=== PATIENT | female | born 1950 | race Caucasian/White ===

== ENCOUNTER → 2017-08-06 12:46 | Outpatient (CLI) | payer MEDICARE, SELFPAY ==
--- NOTE | 2017-08-06 12:59 | XR_ITS ---
XR DEXA axial skeleton HISTORY: ITS.REASON: POST MENOPAUSAL ORDERING PHYSICIAN: Referral Provider, PATIENT AGE: 66 years COMPARISON: None FINDINGS: The BMD measured at the total right femur femoral neck is 0.658 g/cm squared with a T score of -2.8. This is considered osteoporotic according to the World Health Organization criteria. Fracture risk is high. Treatment should be started if not already prescribed. L1 L4 density in the T score of 0.1. IMPRESSION: Osteoporosis. High fracture risk. Recommend follow-up exam July 2018 to follow-up progression of treatment knee. On the scanogram images the right femoral neck and intertrochanteric region of the femur has decreased in intensity compared to the left side. While this may be technical, one cannot exclude the possibility of a lesion in the right proximal femur. Right hip films may be of further value.
== END ==
PROVIDERS: PCP Emergency Medicine; Visit Provider Physician Assistant
DX: Z13.820 Encounter for screening for osteoporosis (principal); M81.0 Age-related osteoporosis without current pathological fracture; Z78.0 Asymptomatic menopausal state
CPT/HCPCS: 77080

== ENCOUNTER 2017-09-06 09:36 | Emergency (ER) | payer MEDICARE, SELFPAY ==
[2017-09-06 10:05] VITALS: BP 94/63; PULSE 111; RESP 20; TEMP 37.1; O2SAT 95; BMI 16.2
--- NOTE | 2017-09-06 10:23 | HMH.EDUTC ---
[facility] [place] Disposition Clinical Impression: URI (upper respiratory infection) Qualifiers: URI type: unspecified URI Qualified Code(s): J06.9 - Acute upper respiratory infection, unspecified Disposition: Home, Self-Care Condition on Discharge: Good Instructions: DI for Cough -- Adult, DI for Nasal Congestion Additional Instructions: Take medication as prescribed Follow up with family doctor REturn if needed Hard candy may help to keep throat coated and cough down Follow up with family doctor if no improvement or worsening of symptoms 24-48 hours Gargle warm salt water to help with throat irritation Vaporizer/humidifier may help with cough Prescriptions: Azithromycin [Z-Santiago 250mg Tab] 250 mg PO UD DOSE PK #6 tab Benzonatate [Tessalon Perle 100mg Cap] 100 mg PO TID PRN #30 cap PRN Reason: Cough Ondansetron [Zofran 4mg ODT] 4 mg PO Q8H PRN #20 tab.rapdis PRN Reason: Nausea predniSONE [Prednisone 5mg Tab Dose-Pack] 5 mg PO UD DOSE PK #21 pack Referrals: Mychal Rondon MD [Primary Care Provider] - Time of Disposition: 10:53 Medical Decision Making - Medical Records Medical records reviewed: Yes: I reviewed the patient's medical records. - Michael Inquiry Pt receiving controlled substance: No Michael was queried for this patient: No Vital Signs: 09/06/17 10:05 Temperature 98.8 F Temperature Source Temporal Artery Scan Pulse Rate [Right Brachial] 111 H Respiratory Rate 20 Blood Pressure [Right Arm] 94/63 Blood Pressure Mean [Right Arm] 73 Blood Pressure Source [Right Arm] Automatic Cuff Blood Pressure Position [Right Arm] Sitting 02 Sat by Pulse Oximetry 95 Oxygen Delivery Method Room Air - Lab Data Lab results reviewed: Yes: I reviewed the patient's lab results. [facility] HPI - General Stated complaint: fever,cough Time Seen by Provider: 09/06/17 10:10 Mode of Arrival: Family Vehicle Source of Information: Patient Limitations: No Limitations Description of Symptoms (Recalled from Triage Doc. by RN): C/O NAUSEA AND VOMITING WITH COUGH X 2 DAYS HEENT Symptoms (Recalled from RN notes): Yes Resp Symptoms (Recalled from RN notes): Yes Skin Symptoms (Recalled from RN notes): No MS Symptoms (Recalled from RN notes): No Functional Status (Recalled from RN notes): N/A - History of Present Illness Provider Complaint: Patient state that she has been having a nagging cough with sinus drainage for several days now States that yesterday she began having some nausea and vomiting States that the cough is dry and keeping her up at night and she has been feeling achy all over and wanted checked for the flu - Related Data Home Medications Medication Instructions Recorded Confirmed Ascorbic Acid [Vitamin C 500mg 500 mg PO DAILY 09/06/17 09/06/17 tablet] Baclofen [Lioresal 10mg tablet] 10 mg PO DAILY 09/06/17 09/06/17 Cholecalciferol (Vitamin D3) 1,000 unit PO DAILY 09/06/17 09/06/17 [Vitamin D3 1,000 Unit Cap] Lisinopril/Hydrochlorothiazide 1 tab PO DAILY 09/06/17 09/06/17 [Lisinopril-Hctz 10-12.5 mg Tab] Mirabegron [Myrbetriq] 50 mg PO DAILY 09/06/17 09/06/17 Teriflunomide [Aubagio] 14 mg PO DAILY 09/06/17 09/06/17 Vit B Comp/C/FA/Iron/Vit E 1 each PO DAILY 09/06/17 09/06/17 [Vitamin B Complex Tablet] Previous Rx's Medication Instructions Recorded Azithromycin [Z-Santiago 250mg Tab] 250 mg PO UD DOSE PK #6 tab 09/06/17 Benzonatate [Tessalon Perle 100mg 100 mg PO TID PRN #30 cap 09/06/17 Cap] Ondansetron [Zofran 4mg ODT] 4 mg PO Q8H PRN #20 tab.rapdis 09/06/17 predniSONE [Prednisone 5mg Tab 5 mg PO UD DOSE PK #21 pack 09/06/17 Dose-Pack] Allergies Allergy/AdvReac Type Severity Reaction Status Date / Time Penicillins [PENICILLINS] Allergy Unknown Verified 09/06/17 10:10 tuberculin,PPD,multi-puncture Allergy Unknown Verified 09/06/17 10:10 [TUBERCULIN,PPD,MULTI-PUNCTURE] - Worker's Comp Is this a Worker's Comp case?: No H History I have reviewed the patient's past
--- NOTE | 2017-09-06 10:29 | ED_ITS ---
[facility] [place] Disposition Clinical Impression: URI (upper respiratory infection) Qualifiers: URI type: unspecified URI Qualified Code(s): J06.9 - Acute upper respiratory infection, unspecified Disposition: Home, Self-Care Condition on Discharge: Good Instructions: DI for Cough -- Adult, DI for Nasal Congestion Additional Instructions: Take medication as prescribed Follow up with family doctor REturn if needed Hard candy may help to keep throat coated and cough down Follow up with family doctor if no improvement or worsening of symptoms 24-48 hours Gargle warm salt water to help with throat irritation Vaporizer/humidifier may help with cough Prescriptions: Azithromycin [Z-Santiago 250mg Tab] 250 mg PO UD DOSE PK #6 tab Benzonatate [Tessalon Perle 100mg Cap] 100 mg PO TID PRN #30 cap PRN Reason: Cough Ondansetron [Zofran 4mg ODT] 4 mg PO Q8H PRN #20 tab.rapdis PRN Reason: Nausea predniSONE [Prednisone 5mg Tab Dose-Pack] 5 mg PO UD DOSE PK #21 pack Referrals: Mychal Rondon MD [Primary Care Provider] - Time of Disposition: 10:53 Medical Decision Making - Medical Records Medical records reviewed: Yes: I reviewed the patient's medical records. - Michael Inquiry Pt receiving controlled substance: No Michael was queried for this patient: No Vital Signs: 09/06/17 10:05 Temperature 98.8 F Temperature Source Temporal Artery Scan Pulse Rate [Right Brachial] 111 H Respiratory Rate 20 Blood Pressure [Right Arm] 94/63 Blood Pressure Mean [Right Arm] 73 Blood Pressure Source [Right Arm] Automatic Cuff Blood Pressure Position [Right Arm] Sitting 02 Sat by Pulse Oximetry 95 Oxygen Delivery Method Room Air - Lab Data Lab results reviewed: Yes: I reviewed the patient's lab results. [facility] [place] HPI - General Stated complaint: fever,cough Time Seen by Provider: 09/06/17 10:10 Mode of Arrival: Family Vehicle Source of Information: Patient Limitations: No Limitations Description of Symptoms (Recalled from Triage Doc. by RN): C/O NAUSEA AND VOMITING WITH COUGH X 2 DAYS HEENT Symptoms (Recalled from RN notes): Yes Resp Symptoms (Recalled from RN notes): Yes Skin Symptoms (Recalled from RN notes): No MS Symptoms (Recalled from RN notes): No Functional Status (Recalled from RN notes): N/A - History of Present Illness Provider Complaint: Patient state that she has been having a nagging cough with sinus drainage for several days now States that yesterday she began having some nausea and vomiting States that the cough is dry and keeping her up at night and she has been feeling achy all over and wanted checked for the flu - Related Data Home Medications Medication Instructions Recorded Confirmed Ascorbic Acid [Vitamin C 500mg 500 mg PO DAILY 09/06/17 09/06/17 tablet] Baclofen [Lioresal 10mg tablet] 10 mg PO DAILY 09/06/17 09/06/17 Cholecalciferol (Vitamin D3) 1,000 unit PO DAILY 09/06/17 09/06/17 [Vitamin D3 1,000 Unit Cap] Lisinopril/Hydrochlorothiazide 1 tab PO DAILY 09/06/17 09/06/17 [Lisinopril-Hctz 10-12.5 mg Tab] Mirabegron [Myrbetriq] 50 mg PO DAILY 09/06/17 09/06/17 Teriflunomide [Aubagio] 14 mg PO DAILY 09/06/17 09/06/17 Vit B Comp/C/FA/Iron/Vit E 1 each PO DAILY 09/06/17 09/06/17 [Vitamin B Complex Tablet] Previous Rx's Medication Instructions Recorded Azithromycin [Z-Santiago 250mg Tab] 250 mg PO UD DOSE PK #6 tab
[2017-09-06 10:59] VITALS: BP 102/70; PULSE 100; RESP 20; TEMP 37.1; O2SAT 96
[2017-10-07 15:00] LABS: UTC Influenza A Antigen Negative (Negative); UTC Influenza B Antigen Negative (Negative)
== END 2017-09-06 11:00 | disposition home or self-care (01) ==
PROVIDERS: Emergency Provider Nurse Practitioner; PCP Emergency Medicine
DX: J06.9 Acute upper respiratory infection, unspecified (principal)
CPT/HCPCS: G0463; 87804; 99201

== ENCOUNTER 2017-09-13 15:54 | Inpatient (IN) ==
--- NOTE | 2017-09-13 16:17 | Emergency Department Note ---
[facility] [place] Disposition Clinical Impression: Multiple sclerosis RLL pneumonia Qualifiers: Pneumonia type: due to unspecified organism Qualified Code(s): J18.1 - Lobar pneumonia, unspecified organism Disposition: Still a Patient Condition on Discharge: Undetermined Referrals: Mychal Rondon MD [Primary Care Provider] - Time of Disposition: 16:59 (Transfer to ER) Medical Decision Making - Michael Inquiry Pt receiving controlled substance: No Vital Signs: 09/13/17 16:06 Temperature 99.1 F Temperature Source Oral Pulse Rate [Right Radial] 121 H Respiratory Rate 26 H Blood Pressure [Right Arm] 117/95 Blood Pressure Mean [Right Arm] 102 02 Sat by Pulse Oximetry 97 Oxygen Delivery Method Room Air Orders (Tests/Meds): ORDERS Category Date Time Status Chest XR 2 view (NOT portable) [XR chest 2V] Stat Exams 09/13/17 16:17 Taken - Radiology Data #1 Image(s): Chest Image Reviewed: Yes I reviewed the patient's radiology results Preliminary Findings: Abnormal (RLL infiltrate) [facility] [place] HPI - General Stated complaint: Nausea, Cough Time Seen by Provider: 09/13/17 16:10 Mode of Arrival: Wheelchair Source of Information: Patient Limitations: No Limitations Description of Symptoms (Recalled from Triage Doc. by RN): pt c/o nausea/ vomiting, and weakness that started on thursday. pt was seen in [facility] for same thing last week and was given zofran, prednisone, and zpak. HEENT Symptoms (Recalled from RN notes): No Resp Symptoms (Recalled from RN notes): No Skin Symptoms (Recalled from RN notes): No MS Symptoms (Recalled from RN notes): Yes (weakness) Functional Status (Recalled from RN notes): na - History of Present Illness Provider Complaint: Patient was seen one week ago for cough, sinus pressure, nausea. She was treated for URI with Zpack, Prednisone, Zofran and Tessalon Perles. She states that she did feel better initially but malaise returned when meds ran out. She is now feeling poorly again. Unsure about fever. She is staying nauseated. She is short of breath. She has MS. She also has a history of abnormal CXR/CT lungs, and states she was evaluated for lung cancer versus blastomycosis versus histoplasmosis but she was eventually cleared by pulmonology and told that she had none of those things. She does not smoke. She has not eaten for the past week and is afraid she is losing more weight. She has not had vomiting or diarrhea. Onset (ago): week(s) (1) Location: chest Relieving factors: none Exacerbating factors: none Associated symptoms: cough, fever/chills, malaise, nausea/vomiting, shortness of breath - Related Data Home Medications Medication Instructions Recorded Confirmed Ascorbic Acid [Vitamin C 500mg 500 mg PO DAILY 09/06/17 09/13/17 tablet] Baclofen [Lioresal 10mg tablet] 10 mg PO DAILY 09/06/17 09/13/17 Cholecalciferol (Vitamin D3) 3 unit PO DAILY 09/06/17 09/13/17 [Vitamin D3 1,000 Unit Cap] Lisinopril/Hydrochlorothiazide 1 tab PO DAILY 09/06/17 09/13/17 [Lisinopril-Hctz 10-12.5 mg Tab] Mirabegron [Myrbetriq] 50 mg PO DAILY 09/06/17 09/13/17 Teriflunomide [Aubagio] 14 mg PO DAILY 09/06/17 09/13/17 Vit B Comp/C/FA/Iron/Vit E 1 each PO DAILY 09/06/17 09/13/17 [Vitamin B Complex Tablet] Previous Rx's Medication Instructions Recorded Benzonatate [Tessalon Perle 100mg 100 mg PO TID PRN #30 cap 09/06/17 Cap] Ondansetron [Zofran 4mg ODT] 4 mg PO Q8H PRN #20 tab.rapdis 09/06/17 Allergies Allergy/AdvReac Type Severity Reaction Status Date / Time Penicillins [PENICILLINS] Allergy Unknown Verified 09/06/17 10:10 tuberculin,PPD,multi-puncture Allergy Unknown Verified 09/06/17 10:10 [TUBERCULIN,PPD,MULTI-PUNCTURE] - Worker's Comp Is this a Worker's Comp case?: No [facility] History Medical History: Denies:: Cancer, Diabetes Mellitus Type 1, Diabetes Mellitus Type 2, MRSA Other Medical History: Reports: Other (Multiple Sclerosis) Amputation: No - Social History Smoking Status: Never smoker Alcohol Intake: never - Psychiatric History Expresses thoughts of harming self/others: None Suicide Plan Description: No Plan ROS Obtained: Yes All systems reviewed & no additional complaints - Constitutional Constitutional: Reports fatigue, Reports fever(s), Reports headache(s), Reports lethargy, Reports malaise, Reports weakness - Respiratory Respiratory: Yes cough, Yes dyspnea - Gastrointestinal Gastrointestingal: Reports: nausea Physical Exam - General General appearance: alert - Head Head exam: atraumatic - Eye Eye exam: Present: PERRL - ENT ENT exam: Present: mucous membranes moist - Neck Neck exam: Present: normal inspection - Chest Chest inspection: Present: normal inspection, symmetric chest wall rise - Respiratory Respiratory exam: Present: normal lung sounds bilaterally, accessory muscle use. Absent: respiratory distress, wheezes - Cardiovascular Cardiovascular exam: Present: regular rate, normal rhythm, tachycardia - Abdominal Exam Abdominal exam: Present: soft - Extremities Exam Extremities exam: Present: normal inspection, normal capillary refill - Neurological Exam Neurological exam: Present: alert, oriented X3 - Psychiatric Psychiatric exam: Present: normal affect, normal mood - Skin Skin exam: Present: warm, dry, intact
[2017-09-13 17:28] LABS: ABG Oxygen Saturation 98 % (90-100); ABG PCO2 29.2 mmhg (35.0-45.0); ABG PO2 88.9 mmhg (80-100); ABG TCO2 26.9 mmhg (23-27)
[2017-09-13 17:29] LABS: Allen's Test Y; Oxygen R/A %
[2017-09-13 17:30] LABS: ABG PH 7.57 mmol/L (7.35-7.45)
[2017-09-13 17:43] LABS: Basophils % 0.1 % (0.1-2.0); Eosinophils # 0.1 K/mm3 (0.0-0.4); Eosinophils % 0.8 % (0.1-12.0); Hematocrit 34.7 % (37.0-47.0); Hemoglobin 10.8 g/dL (12.2-16.2); Lymphocytes # 0.9 K/mm3 (0.7-4.5); Lymphocytes % 6.2 K/mm3 (10-50); Mean Corpuscular HGB Conc 31.1 g/dL (31.8-35.4); Mean Corpuscular Hemoglobin 28.2 pg (27.0-31.2); Mean Corpuscular Volume 90.5 fl (81-99); Mean Platelet Volume 8.1 fl (7.4-10.4); Monocytes % 6.6 % (1.7-9.3); Neutrophils # 12.6 K/mm3 (1.8-7.8); Neutrophils % 86.3 % (37.0-80.0); Platelet Count 253 K/mm3 (142-424); Red Blood Count 3.84 M/mm3 (4.20-5.40); Red Cell Distribution Width 12.2 % (11.5-17.5); White Blood Count 14.6 K/mm3 (4.8-10.8)
[2017-09-13 17:55] LABS: Albumin Level 2.8 gm/dL (3.4-5.0); Albumin/Globulin Ratio 0.7 (1.1-1.8); Anion Gap 11.8 mEq/L (5-15); Bilirubin,Total 0.5 mg/dL (0.2-1.0); Calcium 8.9 mg/dL (8.5-10.1); Globulin 4.2 gm/dl (1.3-3.2); Potassium 3.8 mmoL/L (3.5-5.1)
[2017-09-13 18:00] LABS: Eosinophils % 1 % (0-3); Lymphocytes % 8 % (10-50); Monocytes % 4 % (2-9); Neutrophils % 86 % (42-76); RBC Morphology Normal; Total Cells Counted 100
--- NOTE | 2017-09-13 18:13 | Emergency Department Note ---
ED Disposition Clinical Impression: Multiple sclerosis, Dehydration, Elevated troponin, Abnormal EKG, UTI (urinary tract infection) RLL pneumonia Qualifiers: Pneumonia type: due to unspecified organism Qualified Code(s): J18.1 - Lobar pneumonia, unspecified organism Disposition: Still a Patient Condition on Discharge: Fair - Critical Care Critical Care Time: No Attestation: On 09/13/17, the high probability of a clinically significant, sudden or life threatening deterioration of the following system(s) required my full and direct attention, intervention and personal management. The time I documented below is in addition to time spent performing reported procedures but includes the following listed in this critical care notation. Medical Decision Making - Michael Inquiry Pt receiving controlled substance: No Michael was queried for this patient: No Vital Signs: 09/13/17 16:06 09/13/17 17:00 09/13/17 18:29 Temperature 99.1 F 97.9 F 98.4 F Temperature Source Oral Oral Oral Pulse Rate 99 H Pulse Rate [Right Radial] 121 H 105 H Respiratory Rate 26 H 24 16 Blood Pressure 100/56 Blood Pressure [Right Arm] 117/95 113/55 Blood Pressure Mean [Right Arm] 102 74 Blood Pressure Source [Right Arm] Blood Pressure Position [Right Arm] 02 Sat by Pulse Oximetry 97 97 Oxygen Delivery Method Room Air Room Air 09/13/17 18:56 Temperature 98.7 F Temperature Source Oral Pulse Rate Pulse Rate [Right Radial] 83 Respiratory Rate 16 Blood Pressure Blood Pressure [Right Arm] 91/54 Blood Pressure Mean [Right Arm] 66 Blood Pressure Source [Right Arm] Automatic Cuff Blood Pressure Position [Right Arm] Supine 02 Sat by Pulse Oximetry 96 Oxygen Delivery Method Room Air - Lab Data Lab Results 09/13/17 17:20: WBC 14.6 H, RBC 3.84 L, Hgb 10.8 L, Hct 34.7 L, MCV 90.5, MCH 28.2, MCHC 31.1 L, RDW 12.2, Plt Count 253, MPV 8.1, Neut % (Auto) 86.3 H, Lymph % (Auto) 6.2 L, Star[place] % (Auto) 6.6, Eos % (Auto) 0.8, Baso % (Auto) 0.1, Neut # (Auto) 12.6 H, Lymph # (Auto) 0.9, Starke # (Auto) 1.0, Eos # (Auto) 0.1, Baso # (Auto) 0.0, Total Counted 100, Neutrophils % (Manual) 86 H, Band Neutrophils % 1.0, Lymphocytes % (Manual) 8 L, Monocytes % (Manual) 4, Eosinophils % (Manual) 1, Platelet Estimate Normal, RBC Morphology Normal 09/13/17 17:20: Sodium 138, Potassium 3.8, Chloride 100, Carbon Dioxide 30, Anion Gap 11.8, BUN 35 H, Creatinine 1.73 H, Estimated Creat Clear 22, Estimated GFR 29 L, Est GFR ( Amer) 35 L, Glucose 103, Calcium 8.9, Total Bilirubin 0.5, AST 16, ALT 15, Alkaline Phosphatase 78, Total Protein 7.0 , Albumin 2.8 L, Globulin 4.2 H, Albumin/Globulin Ratio 0.7 L 09/13/17 17:20: Lactic Acid 1.3 09/13/17 17:20: Total Creatine Kinase 49, CK-MB (CK-2) 0.8, CK-MB (CK-2) Rel Index 1.6, Troponin I 0.07 H 09/13/17 17:27: Specimen Source R/r, O2 % R/a, ABG pH 7.57 H*, ABG pCO2 29.2 L, ABG pO2 88.9, ABG HCO3 26.0, ABG Total CO2 26.9, ABG O2 Saturation 98, ABG Base Excess 4.0 H, Dash Test Y 09/13/17 18:15: Urine Color Yellow, Urine Appearance Cloudy, Urine pH 5.5, Ur Specific [place] 1.025, Urine Protein 3+, Urine Glucose (UA) Negative, Urine Ketones Trace, Urine Blood 1+, Urine Nitrate Negative, Urine Bilirubin Negative , Urine Urobilinogen 0.2, Ur Leukocyte Esterase 2+ A, Urine RBC 5-10, Urine WBC Tntc Result diagrams: 09/13/17 17:20 09/13/17 17:20 Orders (Tests/Meds): ED MEDICATIONS Generic Name Dose Route Start Last Admin Trade Name Freq PRN Reason Stop Dose Admin Acetaminophen 650 mg 09/13/17 18:34 Acetaminophen 325mg Tab PO 10/13/17 18:33 Q4HP PRN As Needed for Fever or Pain Sodium Chloride 1,000 mls @ 100 mls/hr 09/13/17 18:34 Sod Chlor 0.9% 1000ml Bag IV 10/13/17 18:33 .Q10H JOÃO Cefepime HCl 1 gm/ Sodium 50 mls @ 100 mls/hr 09/13/17 18:34 09/13/17 18:42 Chloride IV 09/27/17 18:33 100 mls/hr Q12H JOÃO Administration Protocol ORDERS Category Date Time Status Consult to Cardiology [CONS] Routine Cons 09/13/17 18:25 Active Complete Blood Count Auto Diff AMLAB Lab 09/14/17 06:00 Ordered Comprehensive Metabolic Panel AMLAB Lab 09/14/17 06:00 Ordered Troponin I Q6H Lab 09/13/17 22:00 Ordered Troponin I Q6H Lab 09/14/17 04:00 Ordered Blood Culture Stat Micro 09/13/17 17:20 Received ECG Request by /Liya Stat Y 09/13/17 17:09 Stop Req - Radiology Data #1 Image(s): Chest Image Reviewed: Yes I have reviewed radiologist's interpretation Preliminary Findings: Abnormal - ECG Data Tracing #1 Normal sinus rhythm 97/min incomplete right bundle branch block left anterior fascicular block nonspecific ST and T-segment changes not excluded ischemia. ECG initial impression date: 09/13/17 ECG initial impression time: 18:14 Resp/SOB HPI - General Chief Complaint: Upper Respiratory Infection Stated Complaint: Nausea, Cough Time Seen by Provider: 09/13/17 16:10 Mode of Arrival: Wheelchair Source of Information: Patient Limitations: No Limitations Description of Symptoms (Recalled from ER Triage Doc. by RN): pt c/o nausea/ vomiting, and weakness that started on thursday. pt was seen in [facility] for same thing last week and was given zofran, prednisone, and zpak. - History of Present Illness 66 years old white female with history of multiple sclerosis she developed an upper respiratory infection cough congestion and posterior nasal drip laying and generalized weakness last week. In by her primary care physician and she was given antibiotics and steroids and gradually improved until 2 days ago. 2 days ago she is she started experiencing recurrence of her symptoms in the form of shortness of breath and productive cough and generalized weakness. She denies dysuria hematuria or frequency. She admits for nausea but she denies vomiting or diarrhea. She is hungry but she unable to eat due to her nausea. She went back to her primary care physician and she underwent a chest x-ray and a labs she was diverted to the ED for admission. MD Complaint: shortness of breath, cough Onset (ago): day(s) (2 days) Context: recent illness Severity: moderate Consistency/Duration: constant Relieving factors: rest Exacerbating factors: exertion Known history of: recurrent pneumonia Associated symptoms: denies other symptoms Treatment prior to arrival: other (Steroids and antibiotics. ) - Related Data Home Medications Medication Instructions Recorded Confirmed Ascorbic Acid [Vitamin C 500mg 500 mg PO DAILY 09/06/17 09/13/17 tablet] Baclofen [Lioresal 10mg tablet] 10 mg PO DAILY 09/06/17 09/13/17 Cholecalciferol (Vitamin D3) 3 unit PO DAILY 09/06/17 09/13/17 [Vitamin D3 1,000 Unit Cap] Lisinopril/Hydrochlorothiazide 1 tab PO DAILY 09/06/17 09/13/17 [Lisinopril-Hctz 10-12.5 mg Tab] Mirabegron [Myrbetriq] 50 mg PO DAILY 09/06/17 09/13/17 Teriflunomide [Aubagio] 14 mg PO DAILY 09/06/17 09/13/17 Vit B Comp/C/FA/Iron/Vit E 1 each PO DAILY 09/06/17 09/13/17 [Vitamin B Complex Tablet] Previous Rx's Medication Instructions Recorded Benzonatate [Tessalon Perle 100mg 100 mg PO TID PRN #30 cap 09/06/17 Cap] Ondansetron [Zofran 4mg ODT] 4 mg PO Q8H PRN #20 tab.rapdis 09/06/17 Allergies Allergy/AdvReac Type Severity Reaction Status Date / Time Penicillins [PENICILLINS] Allergy Unknown Verified 09/13/17 17:03 tuberculin,PPD,multi-puncture Allergy Unknown Verified 09/13/17 17:03 [TUBERCULIN,PPD,MULTI-PUNCTURE] [facility] History I have reviewed the patient's past medical history: Yes Medical History: Denies:: Cancer, Diabetes Mellitus Type 1, Diabetes Mellitus Type 2, MRSA Other Medical History: Reports: Other (Multiple Sclerosis) Amputation: No - Social History Smoking Status: Never smoker Alcohol Intake: never - Psychiatric History Expresses thoughts of harming self/others: None Suicide Plan Description: No Plan ROS Obtained: Yes All systems reviewed & no additional complaints Physical Exam - General General appearance: alert, in no apparent distress - Head Head exam: atraumatic, normocephalic, normal inspection - Eye Eye exam: Present: normal appearance, PERRL, EOMI - ENT ENT exam: Present: normal exam, normal oropharynx, mucous membranes moist, TM's normal bilaterally, normal external ear exam - Neck Neck exam: Present: normal inspection, full ROM, trachea midline. Absent: meningismus, lymphadenopathy - Chest Chest inspection: Present: normal inspection, symmetric chest wall rise. Absent : tenderness - Respiratory Respiratory exam: Present: normal lung sounds bilaterally. Absent: respiratory distress - Cardiovascular Cardiovascular exam: Present: regular rate, normal rhythm. Absent: JVD - Abdominal Exam Abdominal exam: Present: soft, normal bowel sounds. Absent: distention, tenderness, guarding, rebound, rigidity - External exam: Present: normal external exam - Extremities Exam Extremities exam: Present: normal inspection, full ROM, normal capillary refill. Absent: calf tenderness - Neurological Exam Neurological exam: Present: alert, oriented X3, CN II-XII intact, normal gait, motor sensory deficit, reflexes normal - Psychiatric Psychiatric exam: Present: normal affect, normal mood - Skin Skin exam: Present: warm, dry, intact, normal color - Lymphatic Lymphatic Findings: no adenopathy
[2017-09-13 19:46] LABS: Appearance,Urine CLOUDY (Clear); Blood, Urine 1+ (Negative); Color,Urine YELLOW (Yellow); Glucose,Urine (UA) Negative (Negative); Ketones,Urine TRACE (Negative); Leukocyte Esterase,Urine 2+ (Negative); Microscopic, Urine URINE MICROSCOPIC (MICROSCOPIC); PH,Urine 5.5 (5.0-8.5); Protein,Urine 3+ (Negative); Specific Gravity, Urine 1.025 (1.005-1.030); Urobilinogen,Urine 0.2 EU/dl (0.2)
[2017-09-13 19:48] LABS: Bilirubin,Urine Negative (Negative)
[2017-09-13 19:49] LABS: WBC,Urine TNTC #/hpf (0-3)
[2017-09-14 05:01] LABS: Albumin Level 2.6 gm/dL (3.4-5.0); Albumin/Globulin Ratio 0.6 (1.1-1.8); Bilirubin,Total 0.3 mg/dL (0.2-1.0); Calcium 8.6 mg/dL (8.5-10.1); Globulin 4.1 gm/dl (1.3-3.2); Total Protein,Serum 6.7 gm/dL (6.4-8.2)
[2017-09-14 05:07] LABS: Basophils # 0.1 K/mm3 (0-0.2); Basophils % 0.4 % (0.1-2.0); Eosinophils # 0.1 K/mm3 (0.0-0.4); Eosinophils % 0.8 % (0.1-12.0); Hematocrit 35.9 % (37.0-47.0); Lymphocytes # 0.8 K/mm3 (0.7-4.5); Lymphocytes % 5.2 K/mm3 (10-50); Mean Corpuscular HGB Conc 30.7 g/dL (31.8-35.4); Mean Corpuscular Hemoglobin 29.3 pg (27.0-31.2); Mean Corpuscular Volume 95.4 fl (81-99); Mean Platelet Volume 9.3 fl (7.4-10.4); Monocytes # 0.8 K/mm3 (0.1-1.0); Monocytes % 5.6 % (1.7-9.3); Neutrophils # 12.6 K/mm3 (1.8-7.8); Platelet Count 220 K/mm3 (142-424); Red Blood Count 3.77 M/mm3 (4.20-5.40); Red Cell Distribution Width 12.6 % (11.5-17.5); White Blood Count 14.4 K/mm3 (4.8-10.8)
[2017-09-14 05:10] LABS: Anion Gap 12.5 mEq/L (5-15); Potassium 3.5 mmoL/L (3.5-5.1)
[2017-09-14 05:33] LABS: Hypochromasia 1+; Lymphocytes % 10 % (10-50); Monocytes % 1 % (2-9); Neutrophils % 79 % (42-76); Total Cells Counted 100
[2017-09-14 05:34] LABS: Toxic Granulation 1+
--- NOTE | 2017-09-14 07:27 | Pharmacy Consult Notes ---
[facility] [place] Pharmacy VTE Monitoring - Patient Demographics Admission date: 09/13/17 Report Date: 09/14/17 Time: 07:27 Allergies/Adverse Reactions: Patient Allergies Penicillins [PENICILLINS] Allergy (Unknown, Verified 09/13/17 17:03) tuberculin,PPD,multi-puncture [TUBERCULIN,PPD,MULTI-PUNCTURE] Allergy (Unknown, Verified 09/13/17 17:03) Height: 1.75 m Weight: 48.081 kg Patient Problems: Current Active Problems Multiple sclerosis (Acute) RLL pneumonia (Acute) Dehydration (Acute) Elevated troponin (Acute) Abnormal EKG (Acute) UTI (urinary tract infection) (Acute) - VTE Risk Labs: VTE Related Lab Results Hgb 11.0 g/dL (12.2-16.2) L 09/14/17 04:15 Hct 35.9 % (37.0-47.0) L 09/14/17 04:15 Plt Count 220 K/mm3 (142-424) 09/14/17 04:15 BUN 36 mg/dL (7-18) H 09/14/17 04:15 Creatinine 1.58 mg/dL (0.55-1.02) H 09/14/17 04:15 Estimated Creat Clear 26 mL/min (0-300) 09/14/17 04:15 Was VTE Risk Assessment Performed: Yes VTE Score: 2 - Prophylaxis VTE Prophylaxis Ordered?: Yes Types of VTE Prophylaxis: TEDS Knee High Location of Applied Device: Bilateral Lower Extremeties - VTE Diagnosis Confirmed Treatment or plan recommended: Continue Current Treatment
--- NOTE | 2017-09-14 11:58 | History & Physical Report ---
*Admission Date: 09/13/17 *Chief complaint: weakness *History of present illness: this wf with progressive weakness and not feeling well with dec po intake despite op treatment was seen at [facility] and ed -d white female with history of multiple sclerosis she developed an upper respiratory infection cough congestion and posterior nasal drip laying and generalized weakness last week. In by her primary care physician and she was given antibiotics and steroids and gradually improved until 2 days ago. 2 days ago she is she started experiencing recurrence of her symptoms in the form of shortness of breath and productive cough and generalized weakness. She denies dysuria hematuria or frequency. She admits for nausea but she denies vomiting or diarrhea. She is hungry but she unable to eat due to her nausea. She went back to her primary care physician and she underwent a chest x-ray and a labs she was diverted to the ED for admission. pt was found to have acute uti [facility] History I have reviewed the patient's past medical history: Yes Medical History: Denies:: Cancer, Diabetes Mellitus Type 1, Diabetes Mellitus Type 2, MRSA Other Medical History: Reports: Arthritis, Cataracts, Other (Multiple Sclerosis) Laterality Cases: Right: Breast Biopsy, Cataract Other Surgeries: Yes: Tubal Ligation Amputation: No - *Social History Educational Level: Completed High School Smoking Status: Never smoker Alcohol Intake: never Occupational Status: retired Housing: house Household Members: spouse, family, children - Psychiatric History Expresses thoughts of harming self/others: None Suicide Plan Description: No Plan *Family Hx:: Cancer, Diabetes, Stroke, Tuberculosis Review of Systems - Review of Systems Review of systems:: pertinent systems reviewed and negative unless documented below - Constitutional Reports anorexia, Reports malaise - Eyes Denies change in vision - ENT Reports dry mouth - *Cardiovascular Denies chest pain - *Respiratory Reports cough, Reports shortness of breath - *Gastrointestinal Reports nausea, Denies abdominal pain - *Genitourinary Denies urinary incontinence, Denies urinary urgency - *Musculoskeletal Reports joint pain - Integumentary/Breasts Denies rash - *Neurologic Reports headache(s), Reports weakness Meds Home Medications Medication Instructions Recorded Confirmed Type Ascorbic Acid [Vitamin C 500mg 500 mg PO DAILY 09/06/17 09/13/17 History tablet] Baclofen [Lioresal 10mg tablet] 10 mg PO DAILY 09/06/17 09/13/17 History Cholecalciferol (Vitamin D3) 1,000 unit PO DAILY 09/06/17 09/14/17 History [Vitamin D3 1,000 Unit Cap] Lisinopril/Hydrochlorothiazide 1 tab PO DAILY 09/06/17 09/13/17 History [Lisinopril-Hctz 10-12.5 mg Tab] Mirabegron [Myrbetriq] 50 mg PO DAILY 09/06/17 09/13/17 History Teriflunomide [Aubagio] 14 mg PO DAILY 09/06/17 09/13/17 History Vit B Comp/C/FA/Iron/Vit E 1 each PO DAILY 09/06/17 09/13/17 History [Vitamin B Complex Tablet] Benzonatate [Tessalon Perle 100mg 100 mg PO TIDP PRN 09/14/17 09/14/17 History Cap] Allergies Allergy/AdvReac Type Severity Reaction Status Date / Time Penicillins [PENICILLINS] Allergy Unknown Verified 09/13/17 17:03 tuberculin,PPD,multi-puncture Allergy Unknown Verified 09/13/17 17:03 [TUBERCULIN,PPD,MULTI-PUNCTURE] Exam Vital signs and Labs for Last 24 Hours: Temp Pulse Resp BP Pulse Ox 98.7 F 101 H 18 110/52 97 09/14/17 08:00 09/14/17 08:00 09/14/17 08:00 09/14/17 08:00 09/14/17 09:00 Laboratory Results - last 24 hr 09/13/17 21:37: Troponin I 0.06 09/14/17 04:15: Sodium 139, Potassium 3.5, Chloride 102, Carbon Dioxide 28, Anion Gap 12.5, BUN 36 H, Creatinine 1.58 H, Estimated Creat Clear 26, Estimated GFR 33 L, Est GFR ( Amer) 39 L, Glucose 106, Calcium 8.6, Total Bilirubin 0.3, AST 16, ALT 14, Alkaline Phosphatase 79, Troponin I 0.07 H , Total Protein 6.7, Albumin 2.6 L, Globulin 4.1 H, Albumin/Globulin Ratio 0.6 L 09/14/17 04:15: WBC 14.4 H, RBC 3.77 L, Hgb 11.0 L, Hct 35.9 L, MCV 95.4, MCH 29.3, MCHC 30.7 L, RDW 12.6, Plt Count 220, MPV 9.3, Neut % (Auto) 88.0 H, Lymph % (Auto) 5.2 L, [place] % (Auto) 5.6, Eos % (Auto) 0.8, Baso % (Auto) 0.4, Neut # (Auto) 12.6 H, Lymph # (Auto) 0.8, [place] # (Auto) 0.8, Eos # (Auto) 0.1, Baso # (Auto) 0.1, Total Counted 100, Neutrophils % (Manual) 79 H, Band Neutrophils % 10.0 H, Lymphocytes % (Manual) 10, Monocytes % (Manual) 1 L, Toxic Granulation 1+, Platelet Estimate Normal, Hypochromasia 1+ I & O for Last 24 hours: Intake & Output 09/11/17 09/12/17 09/13/17 09/14/17 11:59 11:59 11:59 11:59 Intake Total 750 / 750 Output Total 200 / 200 Balance 550 / 550 Weight 106 lb - Constitutional no acute distress, thin - *Routine HEENT Exam Head: Present: normocephalic Eye: Present: EOMI, PERRL. Absent: conjunctival icterus ENT: Present: mucous membranes dry - *Routine Neck Exam Present: supple. Absent: JVD - *Routine Respiratory Exam Present: decreased breath sounds - *Routine Cardiovascular Exam Present: RRR, murmur, S4 - *Routine Abdominal Exam Present: soft - *Routine Extremities Exam Present: full ROM - *Routine Skin Exam Present: intact - *Routine Neurological Exam Present: alert, oriented X3, CN II-XII intact - Routine Psychiatric Exam Present: normal affect H&P: Result - Labs Labs: Short CBC 09/14/17 Range/Units 04:15 WBC 14.4 H (4.8-10.8) K/mm3 Hgb 11.0 L (12.2-16.2) g/dL Hct 35.9 L (37.0-47.0) % Plt Count 220 (142-424) K/mm3 BMP 09/14/17 04:15 Sodium 139 Potassium 3.5 Chloride 102 Carbon Dioxide 28 BUN 36 H Creatinine 1.58 H Glucose 106 Calcium 8.6 Cardiac Enzymes 09/13/17 09/14/17 Range/Units 21:37 04:15 Troponin I 0.06 0.07 H (0.00-0.06) ng/ml Liver Function 09/14/17 Range/Units 04:15 Total Bilirubin 0.3 (0.2-1.0) mg/dL AST 16 (15-37) U/L ALT 14 (12-78) U/L Alkaline Phosphatase 79 (46-116) U/L Albumin 2.6 L (3.4-5.0) gm/dL Assessment and Plan (1) UTI (urinary tract infection) Current visit: Yes Status: Acute Qualifiers: Urinary tract infection type: acute cystitis Hematuria presence: without hematuria Qualified Code(s): N30.00 - Acute cystitis without hematuria Category: Medical Code(s): N39.0 - Urinary tract infection, site not specified (2) E coli bacteremia Current visit: Yes Status: Acute Category: Medical Code(s): R78.81 - Bacteremia (3) Multiple sclerosis Current visit: Yes Status: Chronic Category: Medical Code(s): G35 - Multiple sclerosis (4) Elevated troponin Current visit: Yes Status: Acute Category: Medical Code(s): R74.8 - Abnormal levels of other serum enzymes (5) Renal insufficiency Current visit: Yes Status: Acute Category: Medical Code(s): N28.9 - Disorder of kidney and ureter, unspecified (6) Low body mass index (BMI) Current visit: Yes Status: Chronic Category: Medical
--- NOTE | 2017-09-14 16:36 | Consult Report ---
History of Present Illness Consult date: 09/14/17 Requesting physician: Mychal Rondon Consult reason: shortness of breath Chief complaint: Shortness of breath and cough Additional Medical History:: 1. Dyspnea. 2. Multiple Sclerosis. 3. Urinary tract infection. 4. Essential hypertension History of present illness: 66-year-old white female admitted to the facility with increased shortness of breath and a productive cough for the past 2-3 days. Patient stated she just has not been feeling very well. Patient had currently been seen by her PCP, in which the symptoms she was experiencing was becoming worse. Patient complains of nausea with no vomiting. Patient has history of MS and hypertension. Patient denies chest pain or shortness of breath during this examination. Patient has been having fevers. Nurse reports fever overnight as being 103. Initial EKG revealed normal sinus rhythm with an incomplete right bundle branch block with [address] T segment changes with a heart rate of 92bpm. Chest x- ray revealed emphysema/COPD with chronic post inflammatory fibrotic changes. No acute findings noted. Baseline labs were unremarkable with exception of BUN 35 and creatinine 1.73. Serial enzymes were performed with troponins elevated at 0.07. Patient has no known history of coronary artery disease. [facility] History Medical History: Denies:: Cancer, Diabetes Mellitus Type 1, Diabetes Mellitus Type 2, MRSA Other Medical History: Reports: Arthritis, Cataracts, Other (Multiple Sclerosis) Laterality Cases: Right: Breast Biopsy, Cataract Other Surgeries: Yes: Tubal Ligation Amputation: No - *Social History Educational Level: Completed High School Smoking Status: Never smoker Alcohol Intake: never Occupational Status: retired Housing: house Household Members: spouse, family, children - Psychiatric History Expresses thoughts of harming self/others: None Suicide Plan Description: No Plan *Family Hx:: Cancer, Diabetes, Stroke, Tuberculosis Meds Home Medications Medication Instructions Recorded Confirmed Type Ascorbic Acid [Vitamin C 500mg 500 mg PO DAILY 09/06/17 09/13/17 History tablet] Baclofen [Lioresal 10mg tablet] 10 mg PO DAILY 09/06/17 09/13/17 History Cholecalciferol (Vitamin D3) 1,000 unit PO DAILY 09/06/17 09/14/17 History [Vitamin D3 1,000 Unit Cap] Lisinopril/Hydrochlorothiazide 1 tab PO DAILY 09/06/17 09/13/17 History [Lisinopril-Hctz 10-12.5 mg Tab] Mirabegron [Myrbetriq] 50 mg PO DAILY 09/06/17 09/13/17 History Teriflunomide [Aubagio] 14 mg PO DAILY 09/06/17 09/13/17 History Vit B Comp/C/FA/Iron/Vit E 1 each PO DAILY 09/06/17 09/13/17 History [Vitamin B Complex Tablet] Benzonatate [Tessalon Perle 100mg 100 mg PO TIDP PRN 09/14/17 09/14/17 History Cap] Allergies Allergy/AdvReac Type Severity Reaction Status Date / Time Penicillins [PENICILLINS] Allergy Unknown Verified 09/13/17 17:03 tuberculin,PPD,multi-puncture Allergy Unknown Verified 09/13/17 17:03 [TUBERCULIN,PPD,MULTI-PUNCTURE] Review of Systems - Constitutional Reports body ache(s), Reports fatigue, Reports lack of energy, Reports weakness - *Cardiovascular Reports shortness of breath, Reports shortness of breath with activity, Denies chest pain, Denies generalized swelling, Denies lightheadedness - *Respiratory Reports chest congestion, Reports cough, Reports shortness of breath, Reports shortness of breath with activity, Denies pain with cough, Denies stridor, Denies wheezing - *Gastrointestinal Denies abdominal pain, Denies constipation, Denies loose stools - *Musculoskeletal Reports body aches - *Neurologic Reports weakness, Denies headache(s) Exam Vital signs and Labs for Last 24 Hours: Temp Pulse Resp BP Pulse Ox 102.7 F H 105 H 18 116/69 96 09/14/17 16:00 09/14/17 16:00 09/14/17 16:00 09/14/17 16:00 09/14/17 16:00 Laboratory Results - last 24 hr 09/13/17 21:37: Troponin I 0.06 09/14/17 04:15: Sodium 139, Potassium 3.5, Chloride 102, Carbon Dioxide 28, Anion Gap 12.5, BUN 36 H, Creatinine 1.58 H, Estimated Creat Clear 26, Estimated GFR 33 L, Est GFR ( Amer) 39 L, Glucose 106, Calcium 8.6, Total Bilirubin 0.3, AST 16, ALT 14, Alkaline Phosphatase 79, Troponin I 0.07 H , Total Protein 6.7, Albumin 2.6 L, Globulin 4.1 H, Albumin/Globulin Ratio 0.6 L 09/14/17 04:15: WBC 14.4 H, RBC 3.77 L, Hgb 11.0 L, Hct 35.9 L, MCV 95.4, MCH 29.3, MCHC 30.7 L, RDW 12.6, Plt Count 220, MPV 9.3, Neut % (Auto) 88.0 H, Lymph % (Auto) 5.2 L, [place] % (Auto) 5.6, Eos % (Auto) 0.8, Baso % (Auto) 0.4, Neut # (Auto) 12.6 H, Lymph # (Auto) 0.8, [place] # (Auto) 0.8, Eos # (Auto) 0.1, Baso # (Auto) 0.1, Total Counted 100, Neutrophils % (Manual) 79 H, Band Neutrophils % 10.0 H, Lymphocytes % (Manual) 10, Monocytes % (Manual) 1 L, Toxic Granulation 1+, Platelet Estimate Normal, Hypochromasia 1+ I & O for Last 24 hours: Intake & Output 09/11/17 09/12/17 09/13/17 09/14/17 23:59 23:59 23:59 23:59 Intake Total 750 / 750 Output Total 550 / 550 Balance 200 / 200 Weight 105 lb 15.972 oz - Constitutional no acute distress, average body habitus, cooperative - *Routine Neck Exam Present: supple, full ROM, normal carotid upstroke, trachea midline. Absent: JVD, carotid bruit - *Routine Respiratory Exam Present: CTA bilaterally. Absent: respiratory distress, wheezes, crackles - *Routine Cardiovascular Exam Present: RRR, Normal S1, Normal S2. Absent: murmur, JVD - *Routine Abdominal Exam Present: soft. Absent: distended, mass - *Routine Extremities Exam Present: full ROM, pulses intact, normal capillary refill. Absent: clubbing, edema - *Routine Neurological Exam Present: alert, oriented X3, CN II-XII intact, moving all extremities Assessment and Plan (1) UTI (urinary tract infection) Current visit: Yes Status: Acute Qualifiers: Urinary tract infection type: acute cystitis Hematuria presence: without hematuria Qualified Code(s): N30.00 - Acute cystitis without hematuria Category: Medical Code(s): N39.0 - Urinary tract infection, site not specified (2) E coli bacteremia Current visit: Yes Status: Acute Category: Medical Code(s): R78.81 - Bacteremia (3) Multiple sclerosis Current visit: Yes Status: Chronic Category: Medical Code(s): G35 - Multiple sclerosis (4) Elevated troponin Current visit: Yes Status: Acute Category: Medical Code(s): R74.8 - Abnormal levels of other serum enzymes (5) Renal insufficiency Current visit: Yes Status: Acute Category: Medical Code(s): N28.9 - Disorder of kidney and ureter, unspecified (6) Low body mass index (BMI) Current visit: Yes Status: Chronic Category: Medical (7) Abnormal EKG Current visit: Yes Status: Acute Category: Medical Code(s): R94.31 - Abnormal electrocardiogram [ECG] [EKG] (8) Dehydration Current visit: Yes Status: Acute Category: Medical Code(s): E86.0 - Dehydration (9) RLL pneumonia Current visit: Yes Status: Acute Qualifiers: Pneumonia type: due to unspecified organism Qualified Code(s): J18.1 - Lobar pneumonia, unspecified organism Category: Medical Code(s): J18.1 - Lobar pneumonia, unspecified organism - Assessment and plan all Dx Assessment and Plan for all problems:: Plan: 1. Continue current medical regimen per PCP. 2. Obtain echocardiogram for LV function and valvular status. 3. Schedule left heart catheterization for LV function due to elevated troponins. Will defer due to blood cultures being positive for E. coli. 4. Add Plavix 300 mg given once today. 5. Add Plavix 75mg 1 tablet daily starting in a.m..
--- NOTE | 2017-09-14 23:03 | Cardiology Report ---
PROCEDURE: 2-D M-mode and color Doppler study INDICATIONS FOR THE TEST: Chest pain X COPD Heart Murmur Tobacco Smoking Palpitations Fatigue Syncope EdemaX HypertensionXDiabetes Mellitus Rheumatic Fever SOB YAN Obesity Hyperlipidemia Family History HD Additional History ABN EKG,ELEVATED TROPONINS PATIENT INFORMATION HEIGHT: 67 WEIGHT:106 GENDER: Female B/P:110/52 2-D/M-MODE INTERPRETATION: 2-D MEASUREMENTS OBSERVED VALUES IN CMS Right Ventricular Dimension (RVDd) 2.3 Interventricular Septum (Thickness)(IVsd) 1.1 Left Ventricular Internal Dimensions(LVIDd) 4.0 Left Ventricular Posterior Wall (Thickness)(LVPWd) 1.0 Aortic Root 3.4 Aortic Cusp Separation 1.9 Left Atrial Dimensions (LAD) 2.4 2D 1. Left atrium is normal size, left ventricle is normal size, left ventricle wall thickness is upper limit of the normal, visually estimated ejection fraction 55% with no obvious regional wall motion abnormality. Endocardial surfaces are poorly visualized. 2. The right atrium and right ventricle are mildly enlarged with normal contractility. 3. The aortic valve is minimally thickened and fibrosed. 4. The mitral and tricuspid valve are grossly normal. 5. The pulmonic valve is poorly visualized 6. No significant pericardial effusion noted. DOPPLER INTERROGATION: Doppler interrogation of the aortic, mitral and tricuspid valvular presence of mild mitral and tricuspid regurgitation, calculated right ventricular systolic pressure is 62 mmHg consistent with moderate pulmonary hypertension, grade 1 diastolic dysfunction seen without tissue Doppler evidence of raised left atrial pressure. CONCLUSION: 1. Normal left ventricular size, preserved left ventricular systolic function, visually estimated ejection fraction 55% with no obvious regional wall motion abnormality, grade 1 diastolic dysfunction seen without tissue Doppler evidence of raised left atrial pressure. 2. Mildly enlarged right atrium and right ventricle, contractility of the right ventricle is normal. 3. Mild mitral and tricuspid regurgitation, calculated right ventricular systolic pressure is 62 mmHg consistent with moderate pulmonary hypertension. 4. No significant pericardial effusion noted.
[2017-09-15 07:11] LABS: Anion Gap 10.5 mEq/L (5-15); Potassium 3.5 mmoL/L (3.5-5.1)
--- NOTE | 2017-09-15 13:17 | Progress Note ---
Internal Medicine - PN: Subj *Date: 09/15/17 *Time: 13:15 Interval history: pt doing better but still with fever and culture and sent reviewed Exam Vital signs and Labs for Last 24 Hours: Temp Pulse Resp BP Pulse Ox 98.5 F 93 H 18 147/76 95 09/15/17 11:19 09/15/17 11:19 09/15/17 11:19 09/15/17 11:19 09/15/17 11:19 Laboratory Results - last 24 hr 09/15/17 06:25: Sodium 140, Potassium 3.5, Chloride 107, Carbon Dioxide 26, Anion Gap 10.5, BUN 26 H D, Creatinine 1.16 H D, Estimated Creat Clear 35, Estimated GFR 46 L, Est GFR ( Amer) 56 L D, Glucose 89 I & O for Last 24 hours: Intake & Output 09/13/17 09/14/17 09/15/17 09/16/17 11:59 11:59 11:59 11:59 Intake Total 750 / 750 2398 / 2398 360 / 360 Output Total 200 / 200 1250 / 1250 Balance 550 / 550 1148 / 1148 360 / 360 Weight 106 lb 105 lb 15.972 oz Microbiology Reports for the Last 24 Hours: Microbiology 09/13/17 23:00 Urine,Catheterized Urine Culture - Preliminary NO GROWTH AFTER 24 HOURS - Constitutional no acute distress - *Routine HEENT Exam Head: Present: normocephalic Eye: Present: EOMI, PERRL ENT: Present: mucous membranes dry - *Routine Neck Exam Present: full ROM - *Routine Respiratory Exam Present: CTA bilaterally - *Routine Cardiovascular Exam Present: RRR - *Routine Abdominal Exam Present: soft - *Routine Extremities Exam Absent: edema - *Routine Skin Exam Present: intact - *Routine Neurological Exam Present: alert, CN II-XII intact - Routine Psychiatric Exam Present: normal affect Assessment and Plan (1) UTI (urinary tract infection) Current visit: Yes Status: Acute Qualifiers: Urinary tract infection type: acute cystitis Hematuria presence: without hematuria Qualified Code(s): N30.00 - Acute cystitis without hematuria Category: Medical Code(s): N39.0 - Urinary tract infection, site not specified (2) E coli bacteremia Current visit: Yes Status: Acute Category: Medical Code(s): R78.81 - Bacteremia (3) Multiple sclerosis Current visit: Yes Status: Chronic Category: Medical Code(s): G35 - Multiple sclerosis (4) Elevated troponin Current visit: Yes Status: Acute Category: Medical Code(s): R74.8 - Abnormal levels of other serum enzymes (5) Renal insufficiency Current visit: Yes Status: Acute Category: Medical Code(s): N28.9 - Disorder of kidney and ureter, unspecified (6) Low body mass index (BMI) Current visit: Yes Status: Chronic Category: Medical (7) Abnormal EKG Current visit: Yes Status: Acute Category: Medical Code(s): R94.31 - Abnormal electrocardiogram [ECG] [EKG] (8) Dehydration Current visit: Yes Status: Acute Category: Medical Code(s): E86.0 - Dehydration (9) RLL pneumonia Current visit: Yes Status: Acute Qualifiers: Pneumonia type: due to unspecified organism Qualified Code(s): J18.1 - Lobar pneumonia, unspecified organism Category: Medical Code(s): J18.1 - Lobar pneumonia, unspecified organism
--- NOTE | 2017-09-16 09:17 | Progress Note ---
Internal Medicine - PN: Subj *Date: 09/16/17 *Time: 09:16 Interval history: doing better and no fever - Exam Vital signs and Labs for Last 24 Hours: Temp Pulse Resp BP Pulse Ox 98.4 F 98 H 18 145/81 93 L 09/16/17 07:38 09/16/17 07:38 09/16/17 07:38 09/16/17 07:38 09/16/17 07:38 I & O for Last 24 hours: Intake & Output 09/13/17 09/14/17 09/15/17 09/16/17 11:59 11:59 11:59 11:59 Intake Total 750 / 750 2398 / 2398 1813 / 1813 Output Total 200 / 200 1250 / 1250 400 / 400 Balance 550 / 550 1148 / 1148 1413 / 1413 Weight 106 lb 105 lb 15.972 oz Microbiology Reports for the Last 24 Hours: Microbiology 09/13/17 23:00 Urine,Catheterized Urine Culture - Final NO GROWTH AFTER 48 HOURS - Constitutional no acute distress - *Routine HEENT Exam Head: Present: normocephalic Eye: Present: EOMI, PERRL ENT: Present: mucous membranes dry - *Routine Neck Exam Present: full ROM - *Routine Respiratory Exam Present: CTA bilaterally - *Routine Cardiovascular Exam Present: RRR - *Routine Extremities Exam Present: full ROM - *Routine Skin Exam Present: intact - *Routine Neurological Exam Present: oriented X3, CN II-XII intact - Routine Psychiatric Exam Present: normal affect Assessment and Plan (1) UTI (urinary tract infection) Current visit: Yes Status: Acute Qualifiers: Urinary tract infection type: acute cystitis Hematuria presence: without hematuria Qualified Code(s): N30.00 - Acute cystitis without hematuria Category: Medical Code(s): N39.0 - Urinary tract infection, site not specified (2) E coli bacteremia Current visit: Yes Status: Acute Category: Medical Code(s): R78.81 - Bacteremia (3) Multiple sclerosis Current visit: Yes Status: Chronic Category: Medical Code(s): G35 - Multiple sclerosis (4) Elevated troponin Current visit: Yes Status: Acute Category: Medical Code(s): R74.8 - Abnormal levels of other serum enzymes (5) Renal insufficiency Current visit: Yes Status: Acute Category: Medical Code(s): N28.9 - Disorder of kidney and ureter, unspecified (6) Low body mass index (BMI) Current visit: Yes Status: Chronic Category: Medical (7) Abnormal EKG Current visit: Yes Status: Acute Category: Medical Code(s): R94.31 - Abnormal electrocardiogram [ECG] [EKG] (8) Dehydration Current visit: Yes Status: Acute Category: Medical Code(s): E86.0 - Dehydration (9) RLL pneumonia Current visit: Yes Status: Acute Qualifiers: Pneumonia type: due to unspecified organism Qualified Code(s): J18.1 - Lobar pneumonia, unspecified organism Category: Medical Code(s): J18.1 - Lobar pneumonia, unspecified organism
[2017-09-16 10:07] LABS: Basophils % 0.2 % (0.1-2.0); Eosinophils # 0.2 K/mm3 (0.0-0.4); Eosinophils % 2.5 % (0.1-12.0); Hemoglobin 9.3 g/dL (12.2-16.2); Lymphocytes # 0.7 K/mm3 (0.7-4.5); Lymphocytes % 7.7 K/mm3 (10-50); Mean Corpuscular HGB Conc 31.1 g/dL (31.8-35.4); Mean Corpuscular Hemoglobin 28.6 pg (27.0-31.2); Mean Corpuscular Volume 91.8 fl (81-99); Mean Platelet Volume 7.5 fl (7.4-10.4); Monocytes # 0.6 K/mm3 (0.1-1.0); Neutrophils # 6.9 K/mm3 (1.8-7.8); Neutrophils % 82.6 % (37.0-80.0); Platelet Count 180 K/mm3 (142-424); Red Blood Count 3.27 M/mm3 (4.20-5.40); Red Cell Distribution Width 12.1 % (11.5-17.5); White Blood Count 8.3 K/mm3 (4.8-10.8)
[2017-09-16 10:17] LABS: Anion Gap 10.9 mEq/L (5-15); Potassium 3.9 mmoL/L (3.5-5.1)
--- NOTE | 2017-09-17 09:56 | Progress Note ---
Internal Medicine - PN: Subj *Date: 09/17/17 *Time: 09:54 Interval history: pt with doing better and will go to swing bed today and have pt eval Exam Vital signs and Labs for Last 24 Hours: Temp Pulse Resp BP Pulse Ox 97.8 F 93 H 18 127/52 97 09/17/17 08:00 09/17/17 08:00 09/17/17 08:00 09/17/17 08:00 09/17/17 08:00 Laboratory Results - last 24 hr 09/16/17 09:45: WBC 8.3 D, RBC 3.27 L, Hgb 9.3 L, Hct 30.0 L, MCV 91.8, MCH 28.6, MCHC 31.1 L, RDW 12.1, Plt Count 180, MPV 7.5, Neut % (Auto) 82.6 H, Lymph % (Auto) 7.7 L, [place] % (Auto) 7.0, Eos % (Auto) 2.5, Baso % (Auto) 0.2, Neut # (Auto) 6.9, Lymph # (Auto) 0.7, [place] # (Auto) 0.6, Eos # (Auto) 0.2, Baso # (Auto) 0.0 09/16/17 09:45: Sodium 138, Potassium 3.9, Chloride 104, Carbon Dioxide 27, Anion Gap 10.9, BUN 17 D, Creatinine 1.05 H, Estimated Creat Clear 39, Estimated GFR 52 L, Est GFR ( Amer) 63, Glucose 82 I & O for Last 24 hours: Intake & Output 09/14/17 09/15/17 09/16/17 09/17/17 11:59 11:59 11:59 11:59 Intake Total 750 / 750 2398 / 2398 1813 / 1813 4719 / 4719 Output Total 200 / 200 1250 / 1250 400 / 400 Balance 550 / 550 1148 / 1148 1413 / 1413 4719 / 4719 Weight 106 lb 105 lb 15.972 oz - Constitutional no acute distress - *Routine HEENT Exam Head: Present: normocephalic Eye: Present: EOMI, PERRL ENT: Present: mucous membranes dry - *Routine Neck Exam Present: supple - *Routine Respiratory Exam Absent: respiratory distress - *Routine Cardiovascular Exam Present: RRR - *Routine Abdominal Exam Present: soft - *Routine Extremities Exam Present: full ROM - *Routine Skin Exam Present: intact - *Routine Neurological Exam Present: alert, oriented X3, CN II-XII intact - Routine Psychiatric Exam Present: normal affect Assessment and Plan (1) UTI (urinary tract infection) Current visit: Yes Status: Acute Qualifiers: Urinary tract infection type: acute cystitis Hematuria presence: without hematuria Qualified Code(s): N30.00 - Acute cystitis without hematuria Category: Medical Code(s): N39.0 - Urinary tract infection, site not specified (2) E coli bacteremia Current visit: Yes Status: Acute Category: Medical Code(s): R78.81 - Bacteremia (3) Multiple sclerosis Current visit: Yes Status: Chronic Category: Medical Code(s): G35 - Multiple sclerosis (4) Elevated troponin Current visit: Yes Status: Acute Category: Medical Code(s): R74.8 - Abnormal levels of other serum enzymes (5) Renal insufficiency Current visit: Yes Status: Acute Category: Medical Code(s): N28.9 - Disorder of kidney and ureter, unspecified (6) Low body mass index (BMI) Current visit: Yes Status: Chronic Category: Medical (7) Abnormal EKG Current visit: Yes Status: Acute Category: Medical Code(s): R94.31 - Abnormal electrocardiogram [ECG] [EKG] (8) Dehydration Current visit: Yes Status: Acute Category: Medical Code(s): E86.0 - Dehydration (9) RLL pneumonia Current visit: Yes Status: Acute Qualifiers: Pneumonia type: due to unspecified organism Qualified Code(s): J18.1 - Lobar pneumonia, unspecified organism Category: Medical Code(s): J18.1 - Lobar pneumonia, unspecified organism
--- NOTE | 2017-09-17 10:00 | Discharge Summary ---
General - General Admission date: 09/13/17 Discharge date: 09/17/17 HPI HPI: this wf with progressive weakness and not feeling well with dec po intake despite op treatment was seen at [facility] and ed -d white female with history of multiple sclerosis she developed an upper respiratory infection cough congestion and posterior nasal drip laying and generalized weakness last week. In by her primary care physician and she was given antibiotics and steroids and gradually improved until 2 days ago. 2 days ago she is she started experiencing recurrence of her symptoms in the form of shortness of breath and productive cough and generalized weakness. She denies dysuria hematuria or frequency. She admits for nausea but she denies vomiting or diarrhea. She is hungry but she unable to eat due to her nausea. She went back to her primary care physician and she underwent a chest x-ray and a labs she was diverted to the ED for admission. pt was found to have acute uti Hospital Course Hospital Course: pt did well with iv abx as she has pos uti and pos blood culture and will require course of 10 days of abx with pic line inserted - pt has multiple sclerosis and has weakness and will see therapy Objective Vital signs: Temp Pulse Resp BP Pulse Ox 97.8 F 93 H 18 127/52 97 09/17/17 08:00 09/17/17 08:00 09/17/17 08:00 09/17/17 08:00 09/17/17 08:00 no acute distress - *Routine HEENT Exam Head: Present: normocephalic Eye: Present: EOMI, PERRL ENT: Present: mucous membranes dry - *Routine Neck Exam Absent: JVD - *Routine Respiratory Exam Absent: respiratory distress - *Routine Cardiovascular Exam Present: RRR - *Routine Abdominal Exam Present: soft - *Routine Extremities Exam Absent: full ROM - *Routine Skin Exam Present: intact - *Routine Neurological Exam Present: alert, oriented X3, CN II-XII intact - Routine Psychiatric Exam Present: normal affect Results Labs on day of discharge: Labs from last 24 hours 09/16/17 09/16/17 09:45 09:45 WBC 8.3 D RBC 3.27 L Hgb 9.3 L Hct 30.0 L MCV 91.8 MCH 28.6 MCHC 31.1 L RDW 12.1 Plt Count 180 MPV 7.5 Neut % (Auto) 82.6 H Lymph % (Auto) 7.7 L [place] % (Auto) 7.0 Eos % (Auto) 2.5 Baso % (Auto) 0.2 Neut # (Auto) 6.9 Lymph # (Auto) 0.7 [place] # (Auto) 0.6 Eos # (Auto) 0.2 Baso # (Auto) 0.0 Sodium 138 Potassium 3.9 Chloride 104 Carbon Dioxide 27 Anion Gap 10.9 BUN 17 D Creatinine 1.05 H Estimated Creat Clear 39 Estimated GFR 52 L Est GFR ( Amer) 63 Glucose 82 DS: Diagnosis - Discharge Diagnosis (1) UTI (urinary tract infection) Status: Acute (2) E coli bacteremia Status: Acute (3) Multiple sclerosis Status: Chronic (4) Elevated troponin Status: Acute (5) Renal insufficiency Status: Acute (6) Low body mass index (BMI) Status: Chronic (7) Abnormal EKG Status: Acute (8) Dehydration Status: Acute (9) RLL pneumonia Status: Acute Discharge Plan - Patient Discharge Instructions ACTIVITY: Continue current activity DIET: continue same diet Patient Instructions: Urinary Tract Infection - Follow up Plan Disposition: [facility] Swing Bed Home Medications: Home Medications Medication Instructions Recorded Confirmed Type Ascorbic Acid [Vitamin C 500mg 500 mg PO DAILY 09/06/17 09/13/17 History tablet] Baclofen [Lioresal 10mg tablet] 10 mg PO DAILY 09/06/17 09/13/17 History Cholecalciferol (Vitamin D3) 1,000 unit PO DAILY 09/06/17 09/14/17 History [Vitamin D3 1,000 Unit Cap] Lisinopril/Hydrochlorothiazide 1 tab PO DAILY 09/06/17 09/13/17 History [Lisinopril-Hctz 10-12.5 mg Tab] Mirabegron [Myrbetriq] 50 mg PO DAILY 09/06/17 09/13/17 History Teriflunomide [Aubagio] 14 mg PO DAILY 09/06/17 09/13/17 History Vit B Comp/C/FA/Iron/Vit E 1 each PO DAILY 09/06/17 09/13/17 History [Vitamin B Complex Tablet] Benzonatate [Tessalon Perle 100mg 100 mg PO TIDP PRN 09/14/17 09/14/17 History Cap] Prescriptions/Medication Reconciliation: New Clopidogrel Bisulfate [Plavix 75mg Tab] 75 mg PO DAILY tablet Continue Baclofen [Lioresal 10mg tablet] 10 mg PO DAILY Teriflunomide [Aubagio] 14 mg PO DAILY Mirabegron [Myrbetriq] 50 mg PO DAILY Lisinopril/Hydrochlorothiazide [Lisinopril-Hctz 10-12.5 mg Tab] 1 tab PO DAILY Vit B Comp/C/FA/Iron/Vit E [Vitamin B Complex Tablet] 1 each PO DAILY Ondansetron [Zofran 4mg ODT] 4 mg PO Q8H PRN #20 tab.rapdis PRN Reason: Nausea Cholecalciferol (Vitamin D3) [Vitamin D3 1,000 Unit Cap] 1,000 unit PO DAILY Ascorbic Acid [Vitamin C 500mg tablet] 500 mg PO DAILY Benzonatate [Tessalon Perle 100mg Cap] 100 mg PO TIDP PRN PRN Reason: Cough
--- NOTE | 2017-09-17 10:13 | Swing Bed Reports ---
Discharge/Transfer - Discharge Disposition: [facility] Bed Condition: Good - Plan of Care Resident has been informed of condition and prognosis?: Yes Mobility Status: ambulatory with assistance Goal of treatment:: inc adl and iv abx Rehab Potential: Good I concur with the most recent H & P: Yes Date of most recent H & P: 09/13/17 Certification: I have reviewed and agree with this resident's plan of care. I certify that post -hospital senior care facility services are required to be given on an inpatient basis because of the need for senior care care on a continuing basis for the condition(s) for which he/she is receiving inpatient hospital services prior to admission to swing bed. I also certify that the resident meets existing SNF level of care definition.
== END 2017-09-17 10:26 | disposition swing bed (61) ==
LOC: UTC 15:54 → 2ND 15:54 → OBSVTOIN 20:02 → 2ND 20:03
PROVIDERS: ADMIT Emergency Medicine; ATTEND Emergency Medicine

== ENCOUNTER 2017-09-17 10:26 | Inpatient (IN) ==
--- NOTE | 2017-09-17 13:29 | Pharmacy Consult Notes ---
[facility] Pharmacy VTE Monitoring - Patient Demographics Admission date: 09/17/17 Report Date: 09/17/17 Time: 13:29 Allergies/Adverse Reactions: Patient Allergies Penicillins [PENICILLINS] Allergy (Unknown, Verified 09/17/17 11:57) tuberculin,PPD,multi-puncture [TUBERCULIN,PPD,MULTI-PUNCTURE] Allergy (Unknown, Verified 09/17/17 11:57) Height: 1.75 m Weight: 52.662 kg - VTE Risk Was VTE Risk Assessment Performed: Yes VTE Score: 3 VTE Risk Level: Low Risk - Prophylaxis VTE Prophylaxis Ordered?: Yes Types of VTE Prophylaxis: TEDS Knee High Location of Applied Device: Bilateral Lower Extremeties - VTE Diagnosis Confirmed Treatment or plan recommended: Continue Current Treatment
--- NOTE | 2017-09-18 17:08 | Progress Note ---
Internal Medicine - PN: Subj *Date: 09/18/17 *Time: 17:06 Interval history: saw on swing bed today - doing better Exam Vital signs and Labs for Last 24 Hours: Temp Pulse Resp BP Pulse Ox 98.3 F 89 18 125/69 98 09/18/17 08:00 09/18/17 08:00 09/18/17 08:00 09/18/17 08:00 09/18/17 08:00 I & O for Last 24 hours: Intake & Output 09/16/17 09/17/17 09/18/17 09/19/17 11:59 11:59 11:59 11:59 Intake Total 250 / 250 Balance 250 / 250 Weight 116 lb 1.6 oz 122 lb 6 oz 122 lb 5.987 oz - Constitutional no acute distress - *Routine HEENT Exam Head: Present: normocephalic Eye: Present: EOMI, PERRL ENT: Present: mucous membranes dry - *Routine Neck Exam Absent: JVD - *Routine Respiratory Exam Absent: respiratory distress - *Routine Cardiovascular Exam Present: RRR - *Routine Skin Exam Present: intact - *Routine Neurological Exam Present: oriented X3, CN II-XII intact - Routine Psychiatric Exam Present: normal affect
[2017-09-21 07:29] LABS: Anion Gap 10.4 mEq/L (5-15); Potassium 4.4 mmoL/L (3.5-5.1)
--- NOTE | 2017-09-21 13:17 | Progress Note ---
Internal Medicine - PN: Subj *Date: 09/21/17 *Time: 13:15 Interval history: doing well and feels better Exam Vital signs and Labs for Last 24 Hours: Temp Pulse Resp BP Pulse Ox 97.2 F L 84 18 111/60 100 09/21/17 08:00 09/21/17 08:00 09/21/17 08:00 09/21/17 08:00 09/21/17 08:00 Laboratory Results - last 24 hr 09/21/17 06:48: Sodium 141, Potassium 4.4, Chloride 105, Carbon Dioxide 30, Anion Gap 10.4, BUN 17, Creatinine 1.03 H, Estimated Creat Clear 46, Estimated GFR 53 L, Est GFR ( Amer) 64, Glucose 81 I & O for Last 24 hours: Intake & Output 09/19/17 09/20/17 09/21/17 09/22/17 11:59 11:59 11:59 11:59 Intake Total 1040 / 1040 480 / 480 1720 / 1720 240 / 240 Output Total 700 / 700 Balance 1040 / 1040 480 / 480 1020 / 1020 240 / 240 Weight 122 lb 5.987 oz - Constitutional no acute distress - *Routine HEENT Exam Head: Present: normocephalic Eye: Present: EOMI, PERRL ENT: Present: mucous membranes dry - *Routine Neck Exam Present: supple - *Routine Respiratory Exam Absent: decreased breath sounds - *Routine Cardiovascular Exam Present: murmur - *Routine Abdominal Exam Present: soft - *Routine Extremities Exam Absent: tenderness - *Routine Skin Exam Present: intact - *Routine Neurological Exam Present: CN II-XII intact - Routine Psychiatric Exam Present: normal affect
[2017-09-22 07:26] LABS: Basophils % 0.6 % (0.1-2.0); Eosinophils # 0.3 K/mm3 (0.0-0.4); Eosinophils % 5.7 % (0.1-12.0); Hematocrit 30.7 % (37.0-47.0); Hemoglobin 9.4 g/dL (12.2-16.2); Lymphocytes # 0.9 K/mm3 (0.7-4.5); Lymphocytes % 14.3 K/mm3 (10-50); Mean Corpuscular HGB Conc 30.7 g/dL (31.8-35.4); Mean Corpuscular Hemoglobin 27.9 pg (27.0-31.2); Mean Corpuscular Volume 90.7 fl (81-99); Mean Platelet Volume 7.5 fl (7.4-10.4); Monocytes # 0.4 K/mm3 (0.1-1.0); Monocytes % 6.2 % (1.7-9.3); Neutrophils # 4.4 K/mm3 (1.8-7.8); Neutrophils % 73.2 % (37.0-80.0); Platelet Count 266 K/mm3 (142-424); Red Blood Count 3.38 M/mm3 (4.20-5.40); Red Cell Distribution Width 12.2 % (11.5-17.5)
[2017-09-22 07:39] LABS: Albumin Level 2.7 gm/dL (3.4-5.0); Albumin/Globulin Ratio 0.6 (1.1-1.8); Anion Gap 11.7 mEq/L (5-15); Bilirubin,Total 0.2 mg/dL (0.2-1.0); Calcium 9.4 mg/dL (8.5-10.1); Globulin 4.2 gm/dl (1.3-3.2); Potassium 4.7 mmoL/L (3.5-5.1); Total Protein,Serum 6.9 gm/dL (6.4-8.2)
[2017-09-22 07:54] VITALS: BP 126/57
--- NOTE | 2017-09-22 09:33 | Discharge Summary ---
General - General Admission date: 09/17/17 Discharge date: 09/22/17 HPI HPI: this wf with progressive weakness and not feeling well with dec po intake despite op treatment was seen at [facility] and ed -d white female with history of multiple sclerosis she developed an upper respiratory infection cough congestion and posterior nasal drip laying and generalized weakness last week. In by her primary care physician and she was given antibiotics and steroids and gradually improved until 2 days ago. 2 days ago she is she started experiencing recurrence of her symptoms in the form of shortness of breath and productive cough and generalized weakness. She denies dysuria hematuria or frequency. She admits for nausea but she denies vomiting or diarrhea. She is hungry but she unable to eat due to her nausea. She went back to her primary care physician and she underwent a chest x-ray and a labs she was diverted to the ED for admission. Hospital Course Hospital Course: contiuned Iv antibotics. Completed Iv antibotics, will dc home today after last dose of antibotics. Objective Vital signs: Temp Pulse Resp BP Pulse Ox 98.8 F 90 18 126/57 98 09/22/17 07:52 09/22/17 07:52 09/22/17 07:52 09/22/17 07:52 09/22/17 07:52 no acute distress - *Routine HEENT Exam Head: Present: normocephalic Eye: Present: PERRL ENT: Present: mucous membranes moist - *Routine Neck Exam Present: full ROM - *Routine Respiratory Exam Present: CTA bilaterally - *Routine Cardiovascular Exam Present: RRR - *Routine Abdominal Exam Present: soft, normoactive bowel sounds - *Routine Skin Exam Present: intact - *Routine Neurological Exam Present: alert, oriented X3, CN II-XII intact - Routine Psychiatric Exam Present: normal affect, normal thought process Results Labs on day of discharge: Labs from last 24 hours 09/22/17 09/22/17 06:42 06:42 WBC 6.0 RBC 3.38 L Hgb 9.4 L Hct 30.7 L MCV 90.7 MCH 27.9 MCHC 30.7 L RDW 12.2 Plt Count 266 MPV 7.5 Neut % (Auto) 73.2 Lymph % (Auto) 14.3 [place] % (Auto) 6.2 Eos % (Auto) 5.7 Baso % (Auto) 0.6 Neut # (Auto) 4.4 Lymph # (Auto) 0.9 [place] # (Auto) 0.4 Eos # (Auto) 0.3 Baso # (Auto) 0.0 Sodium 141 Potassium 4.7 Chloride 103 Carbon Dioxide 31 Anion Gap 11.7 BUN 24 H D Creatinine 1.05 H Estimated Creat Clear 45 Estimated GFR 52 L Est GFR ( Amer) 63 Glucose 79 Calcium 9.4 Total Bilirubin 0.2 AST 16 ALT 15 Alkaline Phosphatase 88 Total Protein 6.9 Albumin 2.7 L Globulin 4.2 H Albumin/Globulin Ratio 0.6 L - Additional Comments Rounded with Dr Rondon, All orders per elizabeth Discharge Plan - Patient Discharge Instructions ACTIVITY: Continue current activity DIET: continue same diet Patient Instructions: DI for Urinary Tract Infection (UTI) - Follow up Plan Follow up with: Mychal Rondon MD [Primary Care Provider] - Disposition: Home, Self-Fpc Medications: Home Medications Medication Instructions Recorded Confirmed Type Ascorbic Acid [Vitamin C 500mg 500 mg PO DAILY 09/06/17 09/17/17 History tablet] Baclofen [Lioresal 10mg tablet] 10 mg PO DAILY 09/06/17 09/17/17 History Cholecalciferol (Vitamin D3) 1,000 unit PO DAILY 09/06/17 09/17/17 History [Vitamin D3 1,000 Unit Cap] Lisinopril/Hydrochlorothiazide 1 tab PO DAILY 09/06/17 09/17/17 History [Lisinopril-Hctz 10-12.5 mg Tab] Mirabegron [Myrbetriq] 50 mg PO DAILY 09/06/17 09/17/17 History Teriflunomide [Aubagio] 14 mg PO DAILY 09/06/17 09/17/17 History Vit B Comp/C/FA/Iron/Vit E 1 each PO DAILY 09/06/17 09/17/17 History [Vitamin B Complex Tablet] Benzonatate [Tessalon Perle 100mg 100 mg PO TIDP PRN 09/14/17 09/17/17 History Cap] Clopidogrel Bisulfate [Plavix 75mg 75 mg PO DAILY 09/17/17 09/17/17 History Tab] Prescriptions/Medication Reconciliation: Continue Baclofen [Lioresal 10mg tablet] 10 mg PO DAILY Teriflunomide [Aubagio] 14 mg PO DAILY Mirabegron [Myrbetriq] 50 mg PO DAILY Lisinopril/Hydrochlorothiazide [Lisinopril-Hctz 10-12.5 mg Tab] 1 tab PO DAILY Vit B Comp/C/FA/Iron/Vit E [Vitamin B Complex Tablet] 1 each PO DAILY Ondansetron [Zofran 4mg ODT] 4 mg PO Q8H PRN #20 tab.rapdis PRN Reason: Nausea Clopidogrel Bisulfate [Plavix 75mg Tab] 75 mg PO DAILY Cholecalciferol (Vitamin D3) [Vitamin D3 1,000 Unit Cap] 1,000 unit PO DAILY Ascorbic Acid [Vitamin C 500mg tablet] 500 mg PO DAILY Benzonatate [Tessalon Perle 100mg Cap] 100 mg PO TIDP PRN PRN Reason: Cough
== END 2017-09-22 18:00 | disposition home or self-care (01) ==
LOC: 2ND 10:26
PROVIDERS: ADMIT Emergency Medicine; ATTEND Emergency Medicine
CPT/HCPCS: 36415; 80048; 80053; 85025; 97110; 97116; 97165; 97530; 98960; J1335

== ENCOUNTER → 2017-09-29 13:59 | Outpatient (CLI) | payer MEDICARE, SELFPAY ==
[2017-09-29 14:42] LABS: Microscopic, Urine URINE MICROSCOPIC (MICROSCOPIC)
[2017-09-29 16:42] LABS: Appearance,Urine CLEAR (Clear); Bilirubin,Urine Negative (Negative); Blood, Urine Negative (Negative); Color,Urine YELLOW (Yellow); Glucose,Urine (UA) Negative (Negative); Ketones,Urine Negative (Negative); Leukocyte Esterase,Urine Negative (Negative); Nitrate,Urine Negative (Negative); PH,Urine 5.5 (5.0-8.5); Protein,Urine TRACE (Negative); Urobilinogen,Urine 0.2 EU/dl (0.2)
[2017-09-29 16:50] LABS: Bacteria,Urine Trace /lpf; Mucus,Urine Trace /lpf; Squamous Epithelial Cell,Urine Occasional #/hpf (0-5); WBC,Urine Occasional #/hpf (0-3)
== END ==
PROVIDERS: Visit Provider Physician Assistant
DX: N39.0 Urinary tract infection, site not specified (principal)
CPT/HCPCS: 81001; 87086

== ENCOUNTER → 2017-10-06 11:33 | Outpatient (POV) | payer MEDICARE, SELFPAY | PROVIDERS: PCP Emergency Medicine; Visit Provider Internal Medicine | DX: Z00.00 Encounter for general adult medical examination without abnormal findings (principal) ==

== ENCOUNTER 2017-11-30 21:15 | Inpatient (IN) ==
--- NOTE | 2017-11-30 22:00 | Emergency Department Note ---
ED Disposition Clinical Impression: Multiple sclerosis, Renal insufficiency, Low body mass index (BMI) Cholelithiasis Qualifiers: Cholelithiasis location: gallbladder Cholecystitis presence: without cholecystitis Biliary obstruction: without biliary obstruction Qualified Code(s) : K80.20 - Calculus of gallbladder without cholecystitis without obstruction Disposition: Admitted as Observation Condition on Discharge: Good Instructions: DI for Acute Abdomen Referrals: Mychal Rondon MD [Primary Care Provider] - - Critical Care Critical Care Time: No Attestation: On 11/30/17, the high probability of a clinically significant, sudden or life threatening deterioration of the following system(s) required my full and direct attention, intervention and personal management. The time I documented below is in addition to time spent performing reported procedures but includes the following listed in this critical care notation. Medical Decision Making - Medical Records Medical records reviewed: Yes: I reviewed the patient's medical records. - Michael Inquiry Pt receiving controlled substance: No Vital Signs: 11/30/17 21:22 11/30/17 22:15 Temperature 103 F H Temperature Source Oral Pulse Rate [Right Radial] 93 H 100 H Respiratory Rate 16 18 Blood Pressure [Right Arm] 183/100 166/82 Blood Pressure Mean [Right Arm] 127 110 Blood Pressure Source [Right Arm] Automatic Cuff Automatic Cuff Blood Pressure Position [Right Arm] Supine Sitting 02 Sat by Pulse Oximetry 95 92 L Oxygen Delivery Method Room Air Room Air - Lab Data Lab results reviewed: Yes: I reviewed the patient's lab results. Lab Results 11/30/17 21:50: WBC 9.6, RBC 4.27, Hgb 11.2 L, Hct 38.2, MCV 89.5, MCH 26.3 L, MCHC 29.3 L, RDW 13.2, Plt Count 207, MPV 8.3, Neut % (Auto) 79.8, Lymph % (Auto ) 10.1, [place] % (Auto) 6.4, Eos % (Auto) 3.2, Baso % (Auto) 0.4, Neut # (Auto) 7.6, Lymph # (Auto) 1.0, [place] # (Auto) 0.6, Eos # (Auto) 0.3, Baso # (Auto) 0.0 11/30/17 21:50: Sodium 138, Potassium 3.7, Chloride 103, Carbon Dioxide 28, Anion Gap 10.7, BUN 24 H, Creatinine 1.30 H, Estimated Creat Clear 32, Estimated GFR 41 L, Est GFR ( Amer) 49 L, Glucose 121 H, Calcium 9.0, Total Bilirubin 0.4, Direct Bilirubin 0.1, Indirect Bilirubin 0.3, AST 15, ALT 16, Alkaline Phosphatase 92, Troponin I < 0.02, Total Protein 8.0, Albumin 3.9, Amylase 52, Lipase 215 11/30/17 21:50: Lactic Acid 0.8 11/30/17 23:10: Urine Color Yellow, Urine Appearance Clear, Urine pH 6.0, Ur Specific [place] 1.025, Urine Protein 2+, Urine Glucose (UA) Negative, Urine Ketones Negative, Urine Blood 1+, Urine Nitrate Positive, Urine Bilirubin Negative, Urine Urobilinogen 0.2, Ur Leukocyte Esterase Negative, Urine RBC 5-10 , Urine WBC 5-10, Urine Bacteria 4+ A Result diagrams: 11/30/17 21:50 11/30/17 21:50 Orders (Tests/Meds): ED MEDICATIONS Discontinued Medications Generic Name Dose Route Start Last Admin Trade Name Joshq PRN Reason Stop Dose Admin Acetaminophen 650 mg 11/30/17 22:13 11/30/17 23:15 Acetaminophen 650mg Suppository RC 11/30/17 22:14 650 mg ONCE ONE Administration Sodium Chloride 1,000 mls @ 999 mls/hr 11/30/17 21:45 11/30/17 23:14 Sod Chlor 0.9% 1000ml Bag IV 11/30/17 22:45 999 mls/hr .Q1H1M JOÃO Administration Morphine Sulfate 4 mg 11/30/17 22:08 11/30/17 22:15 Morphine 4mg/Ml Syringe IV 11/30/17 22:09 4 mg ONCE ONE Administration Ondansetron HCl 4 mg 11/30/17 21:39 11/30/17 22:15 Zofran 4mg/2ml Vial IV 11/30/17 21:40 4 mg ONCE ONE Administration ORDERS Category Date Time Status CT abdomen pelvis wo con Stat Cat Scan 11/30/17 21:36 Taken XR chest AP Stat Exams 11/30/17 21:38 Taken Blood Culture Stat Micro 11/30/17 21:50 Received Urine Culture(cathed specimen) Stat Micro 11/30/17 23:10 Received - Radiology Data #1 Image(s): Chest Image Reviewed: Yes I reviewed the patient's radiology image Preliminary Findings: Abnormal (chronic changes ) - CT Data CT Scan: Abdomen, Pelvis Time Received: 00:[address] Reviewed: Yes: I have viewed the radiologist's interpretation Preliminary Findings: Abnormal (see report) - Physician Consults Physician Consulted: gregg Reason -: Pt condition Nausea/Vomiting/Diarrhea HPI - General Chief complaint: Abdominal Pain Stated complaint: Right side pain Time Seen by Provider: 11/30/17 21:59 Mode of Arrival: Ambulatory Source of Information: Patient, Relative, Medical Record Limitations: No Limitations Description of Symptoms (Recalled from ER Triage Doc. 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, now nauseated, after completion of triage and orders reports black tarry stools x 30 days - History of Present Illness HPI Narrative: acute onset of rt upper abd pain with nausea MD complaint: nausea, vomiting, abdominal pain Onset (ago): hour(s) Associated Abdominal Pain: Yes Location of pain: RUQ Severity: moderate Consistency: constant - Related Data Home Medications Medication Instructions Recorded Confirmed Ascorbic Acid [Vitamin C 500mg 500 mg PO DAILY 09/06/17 11/30/17 tablet] Baclofen [Lioresal 10mg tablet] 10 mg PO DAILY 09/06/17 11/30/17 Cholecalciferol (Vitamin D3) 1,000 unit PO DAILY 09/06/17 11/30/17 [Vitamin D3 1,000 Unit Cap] Mirabegron [Myrbetriq] 50 mg PO DAILY 09/06/17 11/30/17 Teriflunomide [Aubagio] 14 mg PO DAILY 09/06/17 11/30/17 cyanocobalamin (vit B-12) 50 mcg 50 mcg PO DAILY tab 09/29/17 11/30/17 tablet Allergies Allergy/AdvReac Type Severity Reaction Status Date / Time Penicillins [PENICILLINS] Allergy Unknown Verified 09/17/17 11:57 tuberculin,PPD,multi-puncture Allergy Unknown Verified 09/17/17 11:57 [TUBERCULIN,PPD,MULTI-PUNCTURE] [facility] History I have reviewed the patient's past medical history: Yes Medical History: Reports:: Hyperlipidemia, Hypertension Denies:: Cancer, Diabetes Mellitus Type 1, Diabetes Mellitus Type 2, Internal Pacemaker, MRSA, Seizures Other Medical History: Reports: Arthritis, Cataracts, Other Laterality Cases: Right: Breast Biopsy, Bilateral: Cataract Other Surgeries: Yes: Cardiac Catheterization, Colonoscopy, Tubal Ligation, Other. No: Pacemaker Amputation: No Fractures: Yes ((R) fibula,) - Social History Educational Level: Completed Grade School Smoking Status: Never smoker Alcohol Intake: never Alcohol Intake Frequency:: other Substance Use Type: denies use Occupational Status: retired Housing: house Household Members: spouse - Psychiatric History Expresses thoughts of harming self/others: None Suicide Plan Description: No Plan Family Hx:: Cancer, Coronary Artery Disease, Diabetes, Heart Attack, Stroke, Tuberculosis Comment: Mother of ID at age 85 ROS Obtained: Yes All systems reviewed & no additional complaints - Constitutional Constitutional: Denies fever(s) - Eyes Eyes: Denies change in vision - ENT Ears, Nose, Mouth, and Throat: Denies sore throat - Cardiovascular Cardiovascular: Denies chest pain - Respiratory Respiratory: No cough - Gastrointestinal Gastrointestingal: Reports: abdominal pain, nausea, vomiting. Denies: diarrhea - Genitourinary Female Genitourinary: Denies hematuria - Musculoskeletal Musculoskeletal: Denies joint pain, Denies joint swelling - Integumentary/Breasts Skin/Breast: Denies rash - Neurologic Neurologic: Denies headache(s), Denies seizure-like activity Physical Exam - General General appearance: in no apparent distress - Head Head exam: normocephalic - Eye Eye exam: Present: PERRL, EOMI. Absent: scleral icterus - ENT ENT exam: Present: mucous membranes dry - Neck Neck exam: Present: trachea midline - Respiratory Respiratory exam: Absent: respiratory distress - Cardiovascular Cardiovascular exam: Present: regular rate, systolic murmur - Abdominal Exam Abdominal exam: Present: soft, tenderness Abdominal tenderness: Present: RUQ, moderate - Extremities Exam Extremities exam: Present: normal inspection - Neurological Exam Neurological exam: Present: alert, oriented X3, CN II-XII intact - Psychiatric Psychiatric exam: Present: normal affect - Skin Skin exam: Absent: rash
[2017-11-30 22:10] LABS: Basophils % 0.4 % (0.1-2.0); Eosinophils # 0.3 K/mm3 (0.0-0.4); Eosinophils % 3.2 % (0.1-12.0); Hematocrit 38.2 % (37.0-47.0); Hemoglobin 11.2 g/dL (12.2-16.2); Lymphocytes % 10.1 K/mm3 (10-50); Mean Corpuscular HGB Conc 29.3 g/dL (31.8-35.4); Mean Corpuscular Hemoglobin 26.3 pg (27.0-31.2); Mean Corpuscular Volume 89.5 fl (81-99); Mean Platelet Volume 8.3 fl (7.4-10.4); Monocytes # 0.6 K/mm3 (0.1-1.0); Monocytes % 6.4 % (1.7-9.3); Neutrophils # 7.6 K/mm3 (1.8-7.8); Neutrophils % 79.8 % (37.0-80.0); Platelet Count 207 K/mm3 (142-424); Red Blood Count 4.27 M/mm3 (4.20-5.40); Red Cell Distribution Width 13.2 % (11.5-17.5); White Blood Count 9.6 K/mm3 (4.8-10.8)
[2017-11-30 22:25] LABS: Alanine Aminotransferase 16 U/L (12-78); Albumin Level 3.9 gm/dL (3.4-5.0); Alkaline Phosphatase 92 U/L (46-116); Amylase 52 U/L (25-125); Anion Gap 10.7 mEq/L (5-15); Aspartate Amino Transferase 15 U/L (15-37); Bilirubin,Direct 0.1 mg/dL (0.0-0.2); Bilirubin,Indirect 0.3 mg/dL (0.0-0.9); Bilirubin,Total 0.4 mg/dL (0.2-1.0); Blood Urea Nitrogen 24 mg/dL (7-18); Carbon Dioxide 28 mmol/L (21.0-32.0); Chloride 103 mmol/L (98-107); Glucose 121 mg/dL (74-106); Lipase 215 u/L (73-393); Potassium 3.7 mmoL/L (3.5-5.1); Sodium 138 mmol/L (136-145)
[2017-12-01 07:00] LABS: Basophils % 0.3 % (0.1-2.0); Eosinophils # 0.1 K/mm3 (0.0-0.4); Eosinophils % 0.5 % (0.1-12.0); Hematocrit 34.3 % (37.0-47.0); Hemoglobin 10.2 g/dL (12.2-16.2); Lymphocytes # 0.6 K/mm3 (0.7-4.5); Lymphocytes % 5.4 K/mm3 (10-50); Mean Corpuscular HGB Conc 29.9 g/dL (31.8-35.4); Mean Corpuscular Hemoglobin 27.2 pg (27.0-31.2); Mean Platelet Volume 8.3 fl (7.4-10.4); Monocytes # 0.8 K/mm3 (0.1-1.0); Monocytes % 7.3 % (1.7-9.3); Neutrophils # 9.9 K/mm3 (1.8-7.8); Neutrophils % 86.5 % (37.0-80.0); Platelet Count 160 K/mm3 (142-424); Red Blood Count 3.77 M/mm3 (4.20-5.40); Red Cell Distribution Width 13.1 % (11.5-17.5); White Blood Count 11.4 K/mm3 (4.8-10.8)
--- NOTE | 2017-12-01 07:08 | Consult Report ---
*Admission Date: 11/30/17 *Chief complaint: THORACOABDOMINAL PAIN *History of present illness: Patient is a 66-year-old white female with multiple sclerosis. She states that she was in her usual state of health until approximately 7:30 PM yesterday evening at which time she experienced sudden onset of right lower chest pain described as severe and sharp and stabbing. There were no preceding symptoms. She presented to the emergency department and her symptoms were followed by nausea. She was noted to have significant fever to 103F. She had a CT scan of the abdomen and pelvis performed which revealed no acute process but revealed gallstones. She was admitted for inpatient management and surgical consultation. Review of Systems - Constitutional Reports anorexia, Reports fever(s) - Eyes Denies change in vision - ENT Denies abnormal hearing - *Cardiovascular Denies chest pain - *Respiratory Denies shortness of breath - *Gastrointestinal Reports abdominal pain - *Musculoskeletal Denies joint pain - *Neurologic Denies headache(s), Denies seizure-like activity [facility] History Medical History: Reports:: Hyperlipidemia, Hypertension Denies:: Cancer, Diabetes Mellitus Type 1, Diabetes Mellitus Type 2, Internal Pacemaker, MRSA, Seizures Other Medical History: Reports: Arthritis, Cataracts, Other Laterality Cases: Right: Breast Biopsy, Bilateral: Cataract Other Surgeries: Yes: Cardiac Catheterization, Colonoscopy, Tubal Ligation, Other. No: Pacemaker Amputation: No Fractures: Yes ((R) fibula,) - *Social History Educational Level: Completed Grade School Smoking Status: Never smoker Alcohol Intake: never Alcohol Intake Frequency:: other Substance Use Type: denies use Occupational Status: retired Housing: house Household Members: spouse - Psychiatric History Expresses thoughts of harming self/others: None Suicide Plan Description: No Plan *Family Hx:: Cancer, Coronary Artery Disease, Diabetes, Heart Attack, Stroke, Tuberculosis Meds Home Medications Medication Instructions Recorded Confirmed Type Ascorbic Acid [Vitamin C 500mg 500 mg PO DAILY 09/06/17 11/30/17 History tablet] Baclofen [Lioresal 10mg tablet] 10 mg PO DAILY 09/06/17 11/30/17 History Cholecalciferol (Vitamin D3) 1,000 unit PO DAILY 09/06/17 11/30/17 History [Vitamin D3 1,000 Unit Cap] Mirabegron [Myrbetriq] 50 mg PO DAILY 09/06/17 11/30/17 History Teriflunomide [Aubagio] 14 mg PO DAILY 09/06/17 11/30/17 History cyanocobalamin (vit B-12) 50 mcg 50 mcg PO DAILY tab 09/29/17 11/30/17 History tablet Allergies Allergy/AdvReac Type Severity Reaction Status Date / Time Penicillins [PENICILLINS] Allergy Unknown Verified 09/17/17 11:57 tuberculin,PPD,multi-puncture Allergy Unknown Verified 09/17/17 11:57 [TUBERCULIN,PPD,MULTI-PUNCTURE] Exam Vital signs and Labs for Last 24 Hours: Temp Pulse Resp BP Pulse Ox 97.8 F 91 H 20 136/79 95 12/01/17 04:00 12/01/17 04:00 12/01/17 04:00 12/01/17 04:00 12/01/17 04:00 Laboratory Results - last 24 hr 11/30/17 21:50: WBC 9.6, RBC 4.27, Hgb 11.2 L, Hct 38.2, MCV 89.5, MCH 26.3 L, MCHC 29.3 L, RDW 13.2, Plt Count 207, MPV 8.3, Neut % (Auto) 79.8, Lymph % (Auto ) 10.1, [place] % (Auto) 6.4, Eos % (Auto) 3.2, Baso % (Auto) 0.4, Neut # (Auto) 7.6, Lymph # (Auto) 1.0, [place] # (Auto) 0.6, Eos # (Auto) 0.3, Baso # (Auto) 0.0 11/30/17 21:50: Sodium 138, Potassium 3.7, Chloride 103, Carbon Dioxide 28, Anion Gap 10.7, BUN 24 H, Creatinine 1.30 H, Estimated Creat Clear 32, Estimated GFR 41 L, Est GFR ( Amer) 49 L, Glucose 121 H, Calcium 9.0, Total Bilirubin 0.4, Direct Bilirubin 0.1, Indirect Bilirubin 0.3, AST 15, ALT 16, Alkaline Phosphatase 92, Troponin I < 0.02, Total Protein 8.0, Albumin 3.9, Amylase 52, Lipase 215 11/30/17 21:50: Lactic Acid 0.8 11/30/17 23:10: Urine Color Yellow, Urine Appearance Clear, Urine pH 6.0, Ur Specific [place] 1.025, Urine Protein 2+, Urine Glucose (UA) Negative, Urine Ketones Negative, Urine Blood 1+, Urine Nitrate Positive, Urine Bilirubin Negative, Urine Urobilinogen 0.2, Ur Leukocyte Esterase Negative, Urine RBC 5-10 , Urine WBC 5-10, Urine Bacteria 4+ A I & O for Last 24 hours: Intake & Output 11/28/17 11/29/17 11/30/17 12/01/17 11:59 11:59 11:59 11:59 Intake Total 348 / 348 Balance 348 / 348 Weight 107 lb 5 oz - Constitutional no acute distress, chronically ill appearing - *Routine Respiratory Exam Present: CTA bilaterally - *Routine Cardiovascular Exam Present: RRR - *Routine Abdominal Exam Present: soft. Absent: tenderness Results - Labs 11/30/17 21:50 11/30/17 21:50 Laboratory Results - last 24 hr 11/30/17 21:50: WBC 9.6, RBC 4.27, Hgb 11.2 L, Hct 38.2, MCV 89.5, MCH 26.3 L, MCHC 29.3 L, RDW 13.2, Plt Count 207, MPV 8.3, Neut % (Auto) 79.8, Lymph % (Auto ) 10.1, [place] % (Auto) 6.4, Eos % (Auto) 3.2, Baso % (Auto) 0.4, Neut # (Auto) 7.6, Lymph # (Auto) 1.0, [place] # (Auto) 0.6, Eos # (Auto) 0.3, Baso # (Auto) 0.0 11/30/17 21:50: Sodium 138, Potassium 3.7, Chloride 103, Carbon Dioxide 28, Anion Gap 10.7, BUN 24 H, Creatinine 1.30 H, Estimated Creat Clear 32, Estimated GFR 41 L, Est GFR ( Amer) 49 L, Glucose 121 H, Calcium 9.0, Total Bilirubin 0.4, Direct Bilirubin 0.1, Indirect Bilirubin 0.3, AST 15, ALT 16, Alkaline Phosphatase 92, Troponin I < 0.02, Total Protein 8.0, Albumin 3.9, Amylase 52, Lipase 215 11/30/17 21:50: Lactic Acid 0.8 11/30/17 23:10: Urine Color Yellow, Urine Appearance Clear, Urine pH 6.0, Ur Specific [place] 1.025, Urine Protein 2+, Urine Glucose (UA) Negative, Urine Ketones Negative, Urine Blood 1+, Urine Nitrate Positive, Urine Bilirubin Negative, Urine Urobilinogen 0.2, Ur Leukocyte Esterase Negative, Urine RBC 5-10 , Urine WBC 5-10, Urine Bacteria 4+ A Assessment and Plan - Assessment and plan all Dx Assessment and Plan for all problems:: Patient's presentation is quite unusual for acute cholecystitis. She complains mainly of right lower chest pain with nausea and fevers. Gallbladder etiology is possible. Plan for a gallbladder ultrasound today. May need cholecystectomy later today.
[2017-12-01 07:11] LABS: Anion Gap 11.6 mEq/L (5-15); Potassium 4.6 mmoL/L (3.5-5.1)
--- NOTE | 2017-12-01 08:13 | Pharmacy Consult Notes ---
[facility] Pharmacy VTE Monitoring - Patient Demographics Admission date: 12/01/17 Report Date: 12/01/17 Time: 08:12 Allergies/Adverse Reactions: Patient Allergies Penicillins [PENICILLINS] Allergy (Unknown, Verified 09/17/17 11:57) tuberculin,PPD,multi-puncture [TUBERCULIN,PPD,MULTI-PUNCTURE] Allergy (Unknown, Verified 09/17/17 11:57) Height: 1.75 m Weight: 48.676 kg Patient Problems: Current Active Problems Multiple sclerosis (Chronic) Renal insufficiency (Acute) Low body mass index (BMI) (Chronic) Cholelithiasis (Acute) - VTE Risk Labs: VTE Related Lab Results Hgb 10.2 g/dL (12.2-16.2) L 12/01/17 06:19 Hct 34.3 % (37.0-47.0) L 12/01/17 06:19 Plt Count 160 K/mm3 (142-424) 12/01/17 06:19 BUN 22 mg/dL (7-18) H 12/01/17 06:19 Creatinine 1.13 mg/dL (0.55-1.02) H 12/01/17 06:19 Estimated Creat Clear 37 mL/min (0-300) 12/01/17 06:19 Was VTE Risk Assessment Performed: Yes VTE Risk Level: Low Risk Clinical Trial Participant: No - Prophylaxis VTE Prophylaxis Ordered?: Yes Types of VTE Prophylaxis: TEDS Knee High
--- NOTE | 2017-12-01 08:54 | History & Physical Report ---
*Admission Date: 12/01/17 *Chief complaint: abd pain *History of present illness: Patient is a 66-year-old white female with multiple sclerosis. She states that she was in her usual state of health until approximately 7:30 PM yesterday evening at which time she experienced sudden onset of right lower chest pain described as severe and sharp and stabbing. There were no preceding symptoms. She presented to the emergency department and her symptoms were followed by nausea. She was noted to have significant fever to 103F. She had a CT scan of the abdomen and pelvis performed which revealed no acute process but revealed gallstones. She was admitted for inpatient management and surgical consultation.this wf with rt upper abd pain with nausea and rt upper abd pain with fever and abn ct which showed gb disease [facility] History I have reviewed the patient's past medical history: Yes Medical History: Reports:: Hyperlipidemia, Hypertension Denies:: Cancer, Diabetes Mellitus Type 1, Diabetes Mellitus Type 2, Internal Pacemaker, MRSA, Seizures Other Medical History: Reports: Arthritis, Cataracts, Other Laterality Cases: Right: Breast Biopsy, Bilateral: Cataract Other Surgeries: Yes: Cardiac Catheterization, Colonoscopy, Tubal Ligation, Other. No: Pacemaker Amputation: No Fractures: Yes ((R) fibula,) - *Social History Educational Level: Completed Grade School Smoking Status: Never smoker Alcohol Intake: never Alcohol Intake Frequency:: other Substance Use Type: denies use Occupational Status: retired Housing: house Household Members: spouse - Psychiatric History Expresses thoughts of harming self/others: None Suicide Plan Description: No Plan *Family Hx:: Cancer, Coronary Artery Disease, Diabetes, Heart Attack, Stroke, Tuberculosis Review of Systems - Review of Systems Review of systems:: pertinent systems reviewed and negative unless documented below - Constitutional Reports fever(s) - Eyes Denies change in vision - ENT Denies change in voice, Denies sore throat - *Cardiovascular Denies chest pain - *Respiratory Denies cough - *Gastrointestinal Reports abdominal pain, Reports nausea, Reports vomiting, Denies black, tarry stools - *Genitourinary Denies blood in urine - *Musculoskeletal Denies joint pain - Integumentary/Breasts Denies rash - *Neurologic Denies abnormal hearing, Denies headache(s), Denies seizure-like activity - Psychiatric Denies anxiety Meds Home Medications Medication Instructions Recorded Confirmed Type Ascorbic Acid [Vitamin C 500mg 500 mg PO DAILY 09/06/17 11/30/17 History tablet] Baclofen [Lioresal 10mg tablet] 10 mg PO DAILY 09/06/17 11/30/17 History Cholecalciferol (Vitamin D3) 1,000 unit PO DAILY 09/06/17 11/30/17 History [Vitamin D3 1,000 Unit Cap] Mirabegron [Myrbetriq] 50 mg PO DAILY 09/06/17 11/30/17 History Teriflunomide [Aubagio] 14 mg PO DAILY 09/06/17 11/30/17 History cyanocobalamin (vit B-12) 50 mcg 50 mcg PO DAILY tab 09/29/17 11/30/17 History tablet Allergies Allergy/AdvReac Type Severity Reaction Status Date / Time Penicillins [PENICILLINS] Allergy Unknown Verified 09/17/17 11:57 tuberculin,PPD,multi-puncture Allergy Unknown Verified 09/17/17 11:57 [TUBERCULIN,PPD,MULTI-PUNCTURE] Exam Vital signs and Labs for Last 24 Hours: Temp Pulse Resp BP Pulse Ox 98.5 F 74 14 129/61 95 12/01/17 07:59 12/01/17 07:59 12/01/17 07:59 12/01/17 07:59 12/01/17 04:00 Laboratory Results - last 24 hr 11/30/17 21:50: WBC 9.6, RBC 4.27, Hgb 11.2 L, Hct 38.2, MCV 89.5, MCH 26.3 L, MCHC 29.3 L, RDW 13.2, Plt Count 207, MPV 8.3, Neut % (Auto) 79.8, Lymph % (Auto ) 10.1, [place] % (Auto) 6.4, Eos % (Auto) 3.2, Baso % (Auto) 0.4, Neut # (Auto) 7.6, Lymph # (Auto) 1.0, [place] # (Auto) 0.6, Eos # (Auto) 0.3, Baso # (Auto) 0.0 11/30/17 21:50: Sodium 138, Potassium 3.7, Chloride 103, Carbon Dioxide 28, Anion Gap 10.7, BUN 24 H, Creatinine 1.30 H, Estimated Creat Clear 32, Estimated GFR 41 L, Est GFR ( Amer) 49 L, Glucose 121 H, Calcium 9.0, Total Bilirubin 0.4, Direct Bilirubin 0.1, Indirect Bilirubin 0.3, AST 15, ALT 16, Alkaline Phosphatase 92, Troponin I < 0.02, Total Protein 8.0, Albumin 3.9, Amylase 52, Lipase 215 11/30/17 21:50: Lactic Acid 0.8 11/30/17 23:10: Urine Color Yellow, Urine Appearance Clear, Urine pH 6.0, Ur Specific [place] 1.025, Urine Protein 2+, Urine Glucose (UA) Negative, Urine Ketones Negative, Urine Blood 1+, Urine Nitrate Positive, Urine Bilirubin Negative, Urine Urobilinogen 0.2, Ur Leukocyte Esterase Negative, Urine RBC 5-10 , Urine WBC 5-10, Urine Bacteria 4+ A 12/01/17 06:19: WBC 11.4 H, RBC 3.77 L, Hgb 10.2 L, Hct 34.3 L, MCV 91.0, MCH 27.2, MCHC 29.9 L, RDW 13.1, Plt Count 160, MPV 8.3, Neut % (Auto) 86.5 H, Lymph % (Auto) 5.4 L, [place] % (Auto) 7.3, Eos % (Auto) 0.5, Baso % (Auto) 0.3, Neut # (Auto) 9.9 H, Lymph # (Auto) 0.6 L, [place] # (Auto) 0.8, Eos # (Auto) 0.1, Baso # (Auto) 0.0 12/01/17 06:19: Sodium 142, Potassium 4.6 D, Chloride 107, Carbon Dioxide 28, Anion Gap 11.6, BUN 22 H, Creatinine 1.13 H, Estimated Creat Clear 37, Estimated GFR 48 L, Est GFR ( Amer) 58 L, Glucose 130 H, Calcium 8.0 L D I & O for Last 24 hours: Intake & Output 11/28/17 11/29/17 11/30/17 12/01/17 11:59 11:59 11:59 11:59 Intake Total 348 / 348 Balance 348 / 348 Weight 107 lb 5 oz - Constitutional no acute distress, thin - *Routine HEENT Exam Head: Present: normocephalic Eye: Present: EOMI, PERRL ENT: Present: mucous membranes dry - *Routine Neck Exam Present: supple - *Routine Respiratory Exam Present: CTA bilaterally - *Routine Cardiovascular Exam Present: RRR, murmur - *Routine Abdominal Exam Present: soft, tenderness - *Routine Extremities Exam Absent: calf tenderness - *Routine Skin Exam Present: intact - *Routine Neurological Exam Present: alert, oriented X3, CN II-XII intact - Routine Psychiatric Exam Present: normal affect H&P: Result - Labs Labs: Short CBC 11/30/17 12/01/17 Range/Units 21:50 06:19 WBC 9.6 11.4 H (4.8-10.8) K/mm3 Hgb 11.2 L 10.2 L (12.2-16.2) g/dL Hct 38.2 34.3 L (37.0-47.0) % Plt Count 207 160 (142-424) K/mm3 BMP 11/30/17 12/01/17 21:50 06:19 Sodium 138 142 Potassium 3.7 4.6 D Chloride 103 107 Carbon Dioxide 28 28 BUN 24 H 22 H Creatinine 1.30 H 1.13 H Glucose 121 H 130 H Calcium 9.0 8.0 L D Cardiac Enzymes 11/30/17 Range/Units 21:50 Troponin I < 0.02 (0.00-0.06) ng/ml Liver Function 11/30/17 Range/Units 21:50 Total Bilirubin 0.4 (0.2-1.0) mg/dL Direct Bilirubin 0.1 (0.0-0.2) mg/dL AST 15 (15-37) U/L ALT 16 (12-78) U/L Alkaline Phosphatase 92 (46-116) U/L Albumin 3.9 (3.4-5.0) gm/dL Urine 11/30/17 Range/Units 23:10 Urine Color Yellow (Yellow) Urine Appearance Clear (Clear) Urine pH 6.0 (5.0-8.5) Ur Specific [place] 1.025 (1.005-1.030) Urine Protein 2+ (Negative) Urine Glucose (UA) Negative (Negative) Assessment and Plan (1) Cholelithiasis Current visit: Yes Status: Acute Category: Medical Code(s): K80.20 - Calculus of gallbladder without cholecystitis without obstruction (2) Multiple sclerosis Current visit: Yes Status: Acute Category: Medical Code(s): G35 - Multiple sclerosis (3) Renal insufficiency Current visit: Yes Status: Acute Category: Medical Code(s): N28.9 - Disorder of kidney and ureter, unspecified
[2017-12-01 09:08] LABS: Lymphocytes % 2 % (10-50); Monocytes % 7 % (2-9); Neutrophils % 84 % (42-76); Total Cells Counted 100
[2017-12-01 09:10] LABS: Hypochromasia 1+
[2017-12-01 09:11] LABS: Ovalocytes 1+
--- NOTE | 2017-12-01 15:16 | Operative Note ---
Date of procedure: 12/01/17 Pre-op Diagnosis:: Acute cholecystitis Post-op Diagnosis:: Same Procedure performed:: Laparoscopic cholecystectomy Surgeon:: Bud Kumar MD METROLOGY ENGINEER:: Delroy Hernandez Anesthesia: GETA Estimated blood loss (mL): 20 Clinical Note:: Patient is a 66-year-old white female with multiple sclerosis. She states that she was in her usual state of health until yesterday evening which time she had sudden onset of severe right thoracoabdominal sharp stabbing pain. This persisted. She presented to the emergency department. She developed nausea. Upon presentation she was found to have a fever to 103F. Workup included CT scan which revealed distended gallbladder with gallstones. Surgery was contacted. Plan was made for admission, initiation of intravenous antibiotics, and gallbladder ultrasound. She defervesced. She continued to have nausea. She underwent right upper quadrant ultrasound which revealed distended gallbladder with stones. Interestingly, there is no sonographic evidence of acute cholecystitis. She was reexamined in the afternoon and found to have more tenderness in the right upper quadrant.. To be no other source for her symptoms. The options were discussed with the patient and her family. Plan was made to proceed with cholecystectomy. Operative findings:: Patient had a markedly distended gallbladder with gallbladder wall edema. There is no evidence of any necrosis or abscess. Remainder of limited laparoscopic abdominal surveillance was unremarkable. Operative note:: Consent was obtained and patient was taken to the operating room. She was given preoperative intravenous antibiotics. In the operating room she was placed in a supine position. General anesthesia was induced via endotracheal tube. Abdomen was prepped and draped. Subumbilical skin incision was made and while performing abdominal wall lift Veress needle was inserted. CO2 pneumoperitoneum was achieved 15 mmHg. 11 mm trocar was inserted the umbilicus. Intracranial contents were visualized. She was immediately noted to have a markedly distended gallbladder which was not tense and non- suppurative. She was positioned in reverse Trendelenburg left side down. A couple 5 mm trochars were inserted in the right upper abdomen and a 10 mm trocar was inserted in the epigastrium. Gallbladder was grasped and retracted anteriorly and superiorly over the dome of the liver. There were some omental adhesions to the gallbladder which were taken down using blunt dissection. The duodenum was adherent to the neck of the gallbladder and this was carefully dissected free. The infundibulum/Calvo's pouch the gallbladder is retracted anterior laterally and the visceral peritoneum was incised. The cystic duct and cystic artery were dissected free and isolated. She had a couple of enlarged lymph nodes one on the gallbladder and an additional at the cystic triangle. The cystic duct was multiply clipped and then divided. Cystic artery was carefully coagulated with Buzz ultrasonic harmonic ximena and divided. The gallbladder was dissected free from the liver in a retrograde fashion using Buzz ultrasonic harmonic ximena. Gallbladder was placed within an Endo Catch retrieval device removed from the peritoneal cavity via the umbilical trocar site which required some extension of the fascia and skin for delivery. Gallbladder fossa was then irrigated and aspirated until clear. Some use of electrocautery was used on the gallbladder fossa to ensure hemostasis. Trochars were removed as CO2 pneumoperitoneum was evacuated. Fascia at the umbilicus was closed with interrupted 0 Vicryl sutures. Epigastric trocar site was closed with a 0 Vicryl suture. Local anesthetic was infiltrated. Skin incisions were closed with 4-0 Monocryl in a subcuticular fashion. Steri-Strips and dressings were applied. Condition: stable Disposition: PACU Specimens:: Gallbladder and contents Complications:: None immediately apparent
--- NOTE | 2017-12-01 15:29 | Progress Note ---
[facility] Anesthesia Checklist - Structural Data Admitted From: Inpatient Planned Operative Procedure/s: ranjith moraleze Consent for Planned Operative Procedure(s) Verified: Yes - Airway Assessment C-Spine Mobility Assessed: Yes TMJ Mobility Assessed: Yes Dentition: Good Dentition - Neurological Assessment Level of Consciousness: Awake, Alert, Appropriate - Anesthesia Plan Anesthesia Risk discussed: Yes Anesthesia Plan: Verified ASA Class: III Anesthesia Type: General [facility] Anesthesia HX I have reviewed the patient's past medical history: Yes Medical History: Reports:: Hyperlipidemia, Hypertension Denies:: Cancer, Diabetes Mellitus Type 1, Diabetes Mellitus Type 2, Internal Pacemaker, MRSA, Seizures Other Medical History: Reports: Arthritis, Cataracts, Other Laterality Cases: Right: Breast Biopsy, Bilateral: Cataract Other Surgeries: Yes: Cardiac Catheterization, Colonoscopy, Tubal Ligation, Other. No: Pacemaker Amputation: No Fractures: Yes ((R) fibula,) *Family Hx:: Cancer, Coronary Artery Disease, Diabetes, Heart Attack, Stroke, Tuberculosis
--- NOTE | 2017-12-01 15:30 | Progress Note ---
[facility] Anesthesia Record Part I Intake, IV Amount: 1,500 Estimated blood loss (mL): 0 Urine output (mL): 0 Blood Pressure: 137/66 SaO2: 95 Pulse Rate: 93 Respiratory Rate: 12 Temperature: 98.6 F Patient is:: Awake, Stable Stable to PACU at:: 15:25
--- NOTE | 2017-12-01 15:31 | Progress Note ---
[facility] Anesthesia Record Part II Discharge Time: 15:55 Destination: floor PACU nurse assessment reviewed?: Yes Patient Condition:: Good Anesthesia Complications:: None
--- NOTE | 2017-12-02 07:09 | Progress Note ---
Subjective Patient reports: feels better Narrative: Patient feels much better than prior to surgery. She feels great. She is without complaints. She has been tolerating a bland diet without issue. Exam Vital signs and Labs for Last 24 Hours: Temp Pulse Resp BP Pulse Ox 98.0 F 85 18 147/72 96 12/02/17 04:00 12/02/17 04:00 12/02/17 04:00 12/02/17 04:00 12/02/17 04:00 Laboratory Results - last 24 hr 12/01/17 06:19: Total Counted 100, Neutrophils % (Manual) 84 H, Band Neutrophils % 5.0, Lymphocytes % (Manual) 2 L, Monocytes % (Manual) 7, Metamyelocytes % 2.0 H, Platelet Estimate Slight decrease, Hypochromasia 1+, Ovalocytes 1+ 12/01/17 06:19: Sodium 142, Potassium 4.6 D, Chloride 107, Carbon Dioxide 28, Anion Gap 11.6, BUN 22 H, Creatinine 1.13 H, Estimated Creat Clear 37, Estimated GFR 48 L, Est GFR ( Amer) 58 L, Glucose 130 H, Calcium 8.0 L D I & O for Last 24 hours: Intake & Output 11/29/17 11/30/17 12/01/17 12/02/17 11:59 11:59 11:59 11:59 Intake Total 348 / 348 2726 / 2726 Output Total 350 / 350 Balance 348 / 348 2376 / 2376 Weight 107 lb 5 oz Microbiology Reports for the Last 24 Hours: Microbiology 11/30/17 23:10 Urine,Catheterized Urine Culture - Preliminary NO GROWTH AFTER 24 HOURS - Constitutional no acute distress - *Routine Abdominal Exam Present: soft. Absent: tenderness Comments: Trocar sites clean and intact Progress Note: A&P (1) Cholelithiasis Status: Acute Assessment and plan: Anticipate discharge with surgical follow-up in 2 weeks. Current Visit: Yes (2) Multiple sclerosis Status: Acute Current Visit: Yes (3) Renal insufficiency Status: Acute Current Visit: Yes
--- NOTE | 2017-12-02 09:11 | Progress Note ---
Internal Medicine - PN: Subj *Date: 12/02/17 *Time: 09:08 Interval history: doing much better after gb surg and jeffrey diet - will ask pt to be active and see how she tolerates it Exam Vital signs and Labs for Last 24 Hours: Temp Pulse Resp BP Pulse Ox 98.5 F 87 18 125/55 97 12/02/17 08:00 12/02/17 08:00 12/02/17 08:00 12/02/17 08:00 12/02/17 08:00 Laboratory Results - last 24 hr 12/01/17 06:19: Total Counted 100, Neutrophils % (Manual) 84 H, Band Neutrophils % 5.0, Lymphocytes % (Manual) 2 L, Monocytes % (Manual) 7, Metamyelocytes % 2.0 H, Platelet Estimate Slight decrease, Hypochromasia 1+, Ovalocytes 1+ I & O for Last 24 hours: Intake & Output 11/29/17 11/30/17 12/01/17 12/02/17 11:59 11:59 11:59 11:59 Intake Total 348 / 348 2966 / 2966 Output Total 350 / 350 Balance 348 / 348 2616 / 2616 Weight 107 lb 5 oz Microbiology Reports for the Last 24 Hours: Microbiology 11/30/17 23:10 Urine,Catheterized Urine Culture - Preliminary Gram Negative Rods - Constitutional no acute distress - *Routine HEENT Exam Head: Present: normocephalic Eye: Present: EOMI, PERRL ENT: Present: mucous membranes dry - *Routine Neck Exam Present: supple - *Routine Respiratory Exam Absent: respiratory distress - *Routine Cardiovascular Exam Present: RRR - *Routine Extremities Exam Absent: calf tenderness - *Routine Skin Exam Present: intact - *Routine Neurological Exam Present: alert, CN II-XII intact - Routine Psychiatric Exam Present: normal affect Assessment and Plan (1) Cholelithiasis Current visit: Yes Status: Acute Category: Medical Code(s): K80.20 - Calculus of gallbladder without cholecystitis without obstruction (2) Multiple sclerosis Current visit: Yes Status: Acute Category: Medical Code(s): G35 - Multiple sclerosis (3) Renal insufficiency Current visit: Yes Status: Acute Category: Medical Code(s): N28.9 - Disorder of kidney and ureter, unspecified
--- NOTE | 2017-12-02 21:24 | Discharge Summary ---
General - General Admission date:: 12/01/17 Discharge date: 12/02/17 HPI HPI: Patient is a 66-year-old white female with multiple sclerosis. She states that she was in her usual state of health until approximately 7:30 PM yesterday evening at which time she experienced sudden onset of right lower chest pain described as severe and sharp and stabbing. There were no preceding symptoms. She presented to the emergency department and her symptoms were followed by nausea. She was noted to have significant fever to 103F. She had a CT scan of the abdomen and pelvis performed which revealed no acute process but revealed gallstones. She was admitted for inpatient management and surgical consultation.this wf with rt upper abd pain with nausea and rt upper abd pain with fever and abn ct which showed gb disease Hospital Course Hospital Course: pt with abn u/s and was seen by surg - s a 66-year-old white female with multiple sclerosis. She states that she was in her usual state of health until approximately 7:30 PM yesterday evening at which time she experienced sudden onset of right lower chest pain described as severe and sharp and stabbing. There were no preceding symptoms. She presented to the emergency department and her symptoms were followed by nausea. She was noted to have significant fever to 103F. She had a CT scan of the abdomen and pelvis performed which revealed no acute process but revealed gallstones. She was admitted for inpatient management and surgical consultation. pt had gb surg and has did very well - dec pain and jeffrey diet and will be d/c today with follow up with dr escobedo and myself Objective Vital signs: Temp Pulse Resp BP Pulse Ox 98.1 F 92 H 18 158/62 97 12/02/17 20:00 12/02/17 20:00 12/02/17 20:00 12/02/17 20:00 12/02/17 20:00 no acute distress - *Routine HEENT Exam Head: Present: normocephalic Eye: Present: EOMI, PERRL ENT: Present: mucous membranes dry - *Routine Neck Exam Absent: JVD - *Routine Respiratory Exam Absent: respiratory distress - *Routine Cardiovascular Exam Present: RRR - *Routine Abdominal Exam Present: soft Comments: post - op - *Routine Extremities Exam Present: full ROM - *Routine Skin Exam Present: intact - *Routine Neurological Exam Present: alert, CN II-XII intact - Routine Psychiatric Exam Present: normal affect Results Labs on day of discharge: Preliminary micro results at discharge 11/30/17 23:10 Urine Culture - Preliminary Urine,Catheterized Gram Negative Rods DS: Diagnosis - Discharge Diagnosis (1) Cholelithiasis Status: Acute (2) Multiple sclerosis Status: Acute (3) Renal insufficiency Status: Acute Discharge Plan - Patient Discharge Instructions ACTIVITY: Continue current activity DIET: continue same diet Patient Instructions: Fat-Restricted Diet - Follow up Plan Disposition: Home, Self-Correction Medications: Home Medications Medication Instructions Recorded Confirmed Type Ascorbic Acid [Vitamin C 500mg 500 mg PO DAILY 09/06/17 11/30/17 History tablet] Baclofen [Lioresal 10mg tablet] 10 mg PO DAILY 09/06/17 11/30/17 History Cholecalciferol (Vitamin D3) 1,000 unit PO DAILY 09/06/17 11/30/17 History [Vitamin D3 1,000 Unit Cap] Mirabegron [Myrbetriq] 50 mg PO DAILY 09/06/17 11/30/17 History Teriflunomide [Aubagio] 14 mg PO DAILY 09/06/17 11/30/17 History cyanocobalamin (vit B-12) 50 mcg 50 mcg PO DAILY tab 09/29/17 11/30/17 History tablet Prescriptions/Medication Reconciliation: Continue cyanocobalamin (vit B-12) 50 mcg tablet 50 mcg PO DAILY tab Baclofen [Lioresal 10mg tablet] 10 mg PO DAILY Teriflunomide [Aubagio] 14 mg PO DAILY Mirabegron [Myrbetriq] 50 mg PO DAILY Cholecalciferol (Vitamin D3) [Vitamin D3 1,000 Unit Cap] 1,000 unit PO DAILY Ascorbic Acid [Vitamin C 500mg tablet] 500 mg PO DAILY
[2017-12-02 22:17] VITALS: BP 162/84
== END 2017-12-02 22:30 | disposition home or self-care (01) ==
LOC: 2ND 21:15 → ER 21:15 → OBSVTOIN 12-01 00:45 → 2ND 12-01 00:50
PROVIDERS: ADMIT Emergency Medicine; ATTEND Emergency Medicine

== ENCOUNTER 2018-08-27 14:46 | Inpatient (IN) ==
[2018-08-27 15:23] LABS: Basophils # 0.1 K/mm3 (0-0.2); Basophils % 0.3 % (0.1-2.0); Eosinophils # 0.4 K/mm3 (0.0-0.4); Eosinophils % 1.2 % (0.1-12.0); Hematocrit 40.6 % (37.0-47.0); Hemoglobin 13.1 g/dL (12.2-16.2); Lymphocytes # 1.3 K/mm3 (0.7-4.5); Lymphocytes % 4.1 % (10-50); Mean Corpuscular HGB Conc 32.4 g/dL (31.8-35.4); Mean Corpuscular Hemoglobin 28.5 pg (27.0-31.2); Mean Platelet Volume 8.1 fl (7.4-10.4); Monocytes % 3.2 % (1.7-9.3); Neutrophils # 28.6 K/mm3 (1.8-7.8); Neutrophils % 91.3 % (37.0-80.0); Platelet Count 266 K/mm3 (142-424); Red Blood Count 4.62 M/mm3 (4.20-5.40); Red Cell Distribution Width 12.9 % (11.5-17.5); White Blood Count 31.3 K/mm3 (4.8-10.8)
[2018-08-27 15:34] LABS: Albumin Level 3.3 gm/dL (3.4-5.0); Albumin/Globulin Ratio 0.8 (1.1-1.8); Anion Gap 17.4 mEq/L (5-15); Calcium 8.9 mg/dL (8.5-10.1); Globulin 4.3 gm/dl (1.3-3.2); Potassium 4.4 mmoL/L (3.5-5.1); Total Protein,Serum 7.6 gm/dL (6.4-8.2)
--- NOTE | 2018-08-27 15:57 | Emergency Department Note ---
ED Disposition Clinical Impression: Pneumonia, Dehydration, Multiple sclerosis Disposition: Admitted As Inpatient Condition on Discharge: Fair Referrals: yMchal Rondon MD [Primary Care Provider] - Time of Disposition: 16:39 - Critical Care Critical Care Time: No Attestation: On 08/27/18, the high probability of a clinically significant, sudden or life threatening deterioration of the following system(s) required my full and direct attention, intervention and personal management. The time I documented below is in addition to time spent performing reported procedures but includes the following listed in this critical care notation. Medical Decision Making - Medical Records Medical records reviewed: Yes: I reviewed the patient's medical records. - Michael Inquiry Pt receiving controlled substance: No Michael was queried for this patient: No Vital Signs: 08/27/18 14:56 Temperature 98.2 F Temperature Source Oral Pulse Rate [Left Radial] 88 Respiratory Rate 28 H Blood Pressure [Right Arm] 116/68 Blood Pressure Mean [Right Arm] 84 Blood Pressure Source [Right Arm] Automatic Cuff Blood Pressure Position [Right Arm] Sitting 02 Sat by Pulse Oximetry 94 L Oxygen Delivery Method Room Air - Lab Data Lab results reviewed: Yes: I reviewed the patient's lab results. Lab Results 08/27/18 15:10: WBC 31.3 H*, RBC 4.62, Hgb 13.1, Hct 40.6, MCV 88.0, MCH 28.5, MCHC 32.4, RDW 12.9, Plt Count 266, MPV 8.1, Neut % (Auto) 91.3 H, Lymph % (Auto) 4.1 L, [place] % (Auto) 3.2, Eos % (Auto) 1.2, Baso % (Auto) 0.3, Neut # (Auto) 28.6 H, Lymph # (Auto) 1.3, [place] # (Auto) 1.0, Eos # (Auto) 0.4, Baso # (Auto) 0.1 08/27/18 15:10: Sodium 139, Potassium 4.4, Chloride 101, Carbon Dioxide 25, Anion Gap 17.4 H, BUN 42 H, Creatinine 1.56 H, Estimated Creat Clear 27, Estimated GFR 33 L, Est GFR ( Amer) 40 L, Glucose 128 H, Calcium 8.9, Total Bilirubin 1.0, AST 128 H, ALT 50, Alkaline Phosphatase 69, Total Protein 7.6, Albumin 3.3 L, Globulin 4.3 H, Albumin/Globulin Ratio 0.8 L Result diagrams: 08/27/18 15:10 08/27/18 15:10 Orders (Tests/Meds): ED MEDICATIONS Generic Name Dose Route Start Last Admin Trade Name Freq PRN Reason Stop Dose Admin Azithromycin 500 mg/ Sodium 250 mls @ 250 mls/hr 08/27/18 16:00 Chloride IV 09/10/18 15:59 Q24H JOÃO Protocol Ceftriaxone Sodium 1 gm/ 50 mls @ 100 mls/hr 08/27/18 16:00 Sodium Chloride IV 09/10/18 15:59 Q24H JOÃO Protocol Discontinued Medications Generic Name Dose Route Start Last Admin Trade Name Freq PRN Reason Stop Dose Admin Sodium Chloride 1,000 mls @ 999 mls/hr 08/27/18 15:15 08/27/18 15:27 Sod Chlor 0.9% 1000ml Bag IV 08/27/18 16:15 999 mls/hr .Q1H1M JOÃO Administration Ondansetron HCl 4 mg 08/27/18 15:03 08/27/18 15:21 Zofran 4mg/2ml Vial IV 08/27/18 15:04 4 mg ONCE ONE Administration Ondansetron HCl 4 mg 08/27/18 15:58 08/27/18 15:59 Zofran 4mg/2ml Vial IV 08/27/18 15:59 4 mg ONCE ONE Administration ORDERS Category Date Time Status Complete Blood Count Auto Diff Stat Lab 08/27/18 15:10 Results Lactic Acid Stat Lab 08/27/18 15:43 Received Urinalysis and Microscopic Stat Lab 08/27/18 15:03 Ordered Blood Culture Stat Micro 08/27/18 15:43 Received ABG [Arterial Blood Gas] Stat RT 08/27/18 16:01 Ordered General Adult HPI - General Chief complaint: Nausea/Vomiting/Diarrhea Stated complaint: nausea,cough,vomiting Time Seen by Provider: 08/27/18 15:30 Mode of Arrival: Wheelchair Source of Information: Patient, Relative Limitations: No Limitations Description of Symptoms (Recalled from ER Triage Doc. by RN): to ed per pvt car pt seen at dr gillespie for eval due to hypotension. pt c/o nausea, vomiting, generalized weakness and generalized pain starting weds. cpta none - History of Present Illness HPI narrative: cough,weakness,vomiting - Related Data Home Medications Medication Instructions Recorded Confirmed Baclofen [Lioresal 10mg tablet] 10 mg PO DAILY 09/06/17 08/27/18 Allergies Allergy/AdvReac Type Severity Reaction Status Date / Time Penicillins [PENICILLINS] Allergy Unknown Verified 05/11/18 13:47 tuberculin,PPD,multi-puncture Allergy Unknown Verified 05/11/18 13:47 [TUBERCULIN,PPD,MULTI-PUNCTURE] [facility] History - Hepatitis A Screen Drug use history?: No High risk sexual behaviors?: No History of sexually transmitted infection?: No Currently employed?: No Childcare worker?: No Do you have indoor plumbing?: Yes Do you have electricity?: Yes Attestation statement:: This patient has been screened for Hepatitis A risk factors. I have reviewed the patient's past medical history: Yes Medical History: Reports:: Hyperlipidemia, Hypertension Denies:: Cancer, Diabetes Mellitus Type 1, Diabetes Mellitus Type 2, Internal Pacemaker, MRSA, Seizures Other Medical History: Reports: Arthritis, Cataracts, Other Laterality Cases: Right: Breast Biopsy Other Surgeries: Yes: Cardiac Catheterization, Colonoscopy, Tubal Ligation, Other. No: Pacemaker Amputation: No Fractures: Yes ((R) fibula,) - Social History Smoking Status: Never smoker Alcohol Intake: never Alcohol Intake Frequency:: other Substance Use Type: denies use Occupational Status: retired Housing: house Household Members: spouse - Psychiatric History Expresses thoughts of harming self/others: None Suicide Plan Description: No Plan Family Hx:: Cancer, Coronary Artery Disease, Diabetes, Heart Attack, Stroke, Tuberculosis Comment: Mother of [place] at age 85 ROS Obtained: Yes All systems reviewed & no additional complaints - Constitutional Constitutional: Reports chills, Reports fever(s), Reports lethargy, Reports weakness - ENT Ears, Nose, Mouth, and Throat: Reports system reviewed and no additional complaints, except as docu, Denies throat swelling - Cardiovascular Cardiovascular: Reports system reviewed and no additional complaints, except as docu, Denies chest pain, Reports dyspnea - Respiratory Respiratory: Yes system reviewed and no additional complaints, except as docu, Yes chest congestion, Yes cough, Yes dyspnea, Yes dyspnea on exertion, No coughing up blood - Gastrointestinal Gastrointestingal: Reports: nausea, vomiting. Denies: abdominal pain - Musculoskeletal Musculoskeletal: Denies joint stiffness, Denies joint swelling, Reports muscle weakness - Integumentary/Breasts Skin/Breast: Denies rash - Neurologic Neurologic: Reports system reviewed and no additional complaints, except as docu, Denies focal weakness, Denies headache(s), Denies syncope - Hematologic/Lymphatic Henatologic/Lymphatic: Denies easy bleeding, Denies easy bruising Physical Exam - General General appearance: alert, in distress, cachectic - Eye Eye exam: Present: normal appearance - ENT ENT exam: Absent: mucous membranes moist - Respiratory Respiratory exam: Present: other (dense right basilar rhonchi). Absent: respiratory distress - Cardiovascular Cardiovascular exam: Present: regular rate - Abdominal Exam Abdominal exam: Present: soft, normal bowel sounds. Absent: distention, tenderness, guarding - Extremities Exam Extremities exam: Present: normal inspection, full ROM, normal capillary refill. Absent: calf tenderness - Neurological Exam Neurological exam: Present: alert, oriented X3 - Psychiatric Psychiatric exam: Present: anxious - Skin Skin exam: Present: warm, dry, intact, normal color
[2018-08-27 16:19] LABS: Lymphocytes % 5 % (10-50); Monocytes % 4 % (2-9); Neutrophils % 90 % (42-76); RBC Morphology Normal; Total Cells Counted 100
[2018-08-27 16:24] LABS: ABG Base Excess -3.4 mmol/L (-2.4-2.3); ABG HCO3 20.7 mmhg (22.0-26.0); ABG Oxygen Saturation 94 % (90-100); ABG PH 7.44 mmol/L (7.35-7.45); ABG PO2 65.9 mmhg (80-100); ABG TCO2 21.6 mmhg (23-27)
[2018-08-27 16:25] LABS: Allen's Test ACCEPTABLE; Oxygen ROOM AIR %
[2018-08-27 17:38] LABS: Microscopic, Urine URINE MICROSCOPIC (MICROSCOPIC)
[2018-08-27 17:53] LABS: Appearance,Urine CLOUDY (Clear); Bilirubin,Urine Negative (Negative); Blood, Urine 3+ (Negative); Color,Urine YELLOW (Yellow); Glucose,Urine (UA) Negative (Negative); Ketones,Urine Negative (Negative); Leukocyte Esterase,Urine 1+ (Negative); Protein,Urine 2+ (Negative); Specific Gravity, Urine 1.025 (1.005-1.030); Urobilinogen,Urine 0.2 EU/dl (0.2)
[2018-08-27 17:55] LABS: Bacteria,Urine 4+ /lpf; WBC,Urine 20-50 #/hpf (0-3)
[2018-08-28 08:22] LABS: Lymphocytes # 0.7 K/mm3 (0.7-4.5); Lymphocytes % 3.9 % (10-50); Mean Corpuscular HGB Conc 31.3 g/dL (31.8-35.4); Mean Corpuscular Hemoglobin 28.6 pg (27.0-31.2); Mean Corpuscular Volume 91.4 fl (81-99); Mean Platelet Volume 8.5 fl (7.4-10.4); Monocytes # 0.6 K/mm3 (0.1-1.0); Monocytes % 3.4 % (1.7-9.3); Neutrophils # 16.6 K/mm3 (1.8-7.8); Neutrophils % 92.6 % (37.0-80.0); Platelet Count 155 K/mm3 (142-424); Red Blood Count 3.72 M/mm3 (4.20-5.40); Red Cell Distribution Width 12.8 % (11.5-17.5); White Blood Count 17.9 K/mm3 (4.8-10.8)
[2018-08-28 08:38] LABS: Hemoglobin 10.6 g/dL (12.2-16.2)
[2018-08-28 08:39] LABS: Anion Gap 13.9 mEq/L (5-15); Potassium 3.9 mmoL/L (3.5-5.1)
[2018-08-28 08:51] LABS: Calcium 7.1 mg/dL (8.5-10.1)
--- NOTE | 2018-08-28 09:00 | History & Physical Report ---
*Admission Date: 08/27/18 *Chief complaint: vomiting *History of present illness: this wf with hx of multiple sclerosis who had vomiting and dec po intake over the last few days and was seen in pcp and sent to ed - pt was found to have cap and elevated wbc and admitted for ivf and abx [facility] History I have reviewed the patient's past medical history: Yes Medical History: Reports:: Hyperlipidemia, Hypertension Denies:: Cancer, Diabetes Mellitus Type 1, Diabetes Mellitus Type 2, Internal Pacemaker, MRSA, Seizures *Have you ever received a pneumonia vaccine?: Yes *Have you received a flu vaccine this season?: Yes Other Medical History: Reports: Arthritis, Cataracts, Other Laterality Cases: Right: Breast Biopsy Other Surgeries: Yes: Cardiac Catheterization, Cholecystectomy, Colonoscopy, Tubal Ligation, Other. No: Pacemaker Amputation: No Fractures: Yes ((R) fibula,) - *Social History Educational Level: Attended College Smoking Status: Never smoker Alcohol Intake: never Alcohol Intake Frequency:: other Substance Use Type: denies use *Occupational Status:: retired Housing: house Household Members: spouse, children *Travel in the last 8 weeks: None - Psychiatric History Expresses thoughts of harming self/others: None Suicide Plan Description: No Plan Family Hx:: Cancer, Coronary Artery Disease, Diabetes, Heart Attack, Stroke, T uberculosis Review of Systems - Review of Systems Review of systems:: pertinent systems reviewed and negative unless documented below - Constitutional Reports fever(s), Reports weakness - Eyes Denies change in vision - ENT Denies sore throat - *Cardiovascular Reports shortness of breath, Denies chest pain at rest - *Respiratory Reports cough, Denies coughing up blood - *Gastrointestinal Reports abdominal pain - *Musculoskeletal Denies joint pain - Integumentary/Breasts Denies rash - *Neurologic Reports weakness, Denies localized weakness, Denies headache(s), Denies fainting - Psychiatric Denies anxiety Meds Home Medications Medication Instructions Recorded Confirmed Type Baclofen [Lioresal 10mg tablet] 10 mg PO DAILY 09/06/17 08/27/18 History Allergies Allergy/AdvReac Type Severity Reaction Status Date / Time Penicillins [PENICILLINS] Allergy Unknown Verified 05/11/18 13:47 tuberculin,PPD,multi-puncture Allergy Unknown Verified 05/11/18 13:47 [TUBERCULIN,PPD,MULTI-PUNCTURE] dalfampridine [From Ampyra] Allergy Seizure Verified 08/28/18 00:21 Exam Vital signs and Labs for Last 24 Hours: Temp Pulse Resp BP Pulse Ox 98.6 F 107 H 18 118/70 95 08/28/18 08:00 08/28/18 08:00 08/28/18 08:00 08/28/18 08:00 08/28/18 08:00 Laboratory Results - last 24 hr 08/27/18 14:43: Urine Color Yellow, Urine Appearance Cloudy, Urine pH 6.0, Ur Specific [place] 1.025, Urine Protein 2+, Urine Glucose (UA) Negative, Urine Ketones Negative, Urine Blood 3+, Urine Nitrate Positive, Urine Bilirubin Negative, Urine Urobilinogen 0.2, Ur Leukocyte Esterase 1+ A, Urine RBC 10-20, Urine WBC 20-50, Ur Squamous Epith Cells 3-5, Urine Bacteria 4+ 08/27/18 15:10: WBC 31.3 H*, RBC 4.62, Hgb 13.1, Hct 40.6, MCV 88.0, MCH 28.5, MCHC 32.4, RDW 12.9, Plt Count 266, MPV 8.1, Neut % (Auto) 91.3 H, Lymph % (Au to) 4.1 L, [place] % (Auto) 3.2, Eos % (Auto) 1.2, Baso % (Auto) 0.3, Neut # (Auto) 28.6 H, Lymph # (Auto) 1.3, [place] # (Auto) 1.0, Eos # (Auto) 0.4, Baso # (Auto) 0.1, Total Counted 100, Neutrophils % (Manual) 90 H, Band Neutrophils % 1.0, Lymphocytes % (Manual) 5 L, Monocytes % (Manual) 4, Platelet Estimate Normal, RBC Morphology Normal 08/27/18 15:10: Sodium 139, Potassium 4.4, Chloride 101, Carbon Dioxide 25, Anion Gap 17.4 H, BUN 42 H, Creatinine 1.56 H, Estimated Creat Clear 27, Estimated GFR 33 L, Est GFR ( Amer) 40 L, Glucose 128 H, Calcium 8.9, Total Bilirubin 1.0, AST 128 H, ALT 50, Alkaline Phosphatase 69, Total Protein 7.6, Albumin 3.3 L, Globulin 4.3 H, Albumin/Globulin Ratio 0.8 L 08/27/18 15:43: Lactate 2.3 H 08/27/18 16:01: Specimen Source L. radial, O2 % Room air, ABG pH 7.44, ABG pCO2 31.0 L, ABG pO2 65.9 L, ABG HCO3 20.7 L, ABG Total CO2 21.6 L, ABG O2 Saturation 94, ABG Base Excess -3.4 L, Dash Test Acceptable 08/27/18 20:00: Lactate 1.5 08/28/18 08:00: WBC 17.9 H D, RBC 3.72 L, Hgb 10.6 L D, Hct 34.0 L, MCV 91.4, MCH 28.6, MCHC 31.3 L, RDW 12.8, Plt Count 155 D, MPV 8.5, Neut % (Auto) 92.6 H , Lymph % (Auto) 3.9 L, [place] % (Auto) 3.4, Eos % (Auto) 0.0 L, Baso % (Auto) 0.0 L, Neut # (Auto) 16.6 H, Lymph # (Auto) 0.7, Wood # (Auto) 0.6, Eos # (Auto) 0.0, Baso # (Auto) 0.0 08/28/18 08:00: Sodium 141, Potassium 3.9, Chloride 108 H, Carbon Dioxide 23, Anion Gap 13.9, BUN 33 H, Creatinine 1.40 H, Estimated Creat Clear 30, Estimated GFR 37 L, Est GFR ( Amer) 45 L, Glucose 133 H, Calcium 7.1 L D I & O for Last 24 hours: Intake & Output 08/25/18 08/26/18 08/27/18 08/28/18 11:59 11:59 11:59 11:59 Intake Total 2831 / 2831 Balance 2831 / 2831 Weight 109 lb 1 oz - Constitutional no acute distress, thin, cooperative - *Routine HEENT Exam Head: Present: normocephalic Eye: Present: EOMI, PERRL ENT: Present: mucous membranes dry - *Routine Neck Exam Absent: JVD - *Routine Respiratory Exam Present: decreased breath sounds - *Routine Cardiovascular Exam Present: RRR, murmur, S4 - *Routine Abdominal Exam Present: soft - *Routine Extremities Exam Absent: calf tenderness - *Routine Skin Exam Present: intact - *Routine Neurological Exam Present: alert, oriented X3, CN II-XII intact - Routine Psychiatric Exam Present: normal affect Assessment and Plan (1) CAP (community acquired pneumonia) Current visit: Yes Status: Acute Qualifiers: Laterality: right Lung location: lower lobe of lung Qualified Code(s): J18.1 - Lobar pneumonia, unspecified organism Category: Medical Code(s): J18.9 - Pneumonia, unspecified organism (2) Multiple sclerosis Current visit: No Status: Chronic Category: Medical Code(s): G35 - Multiple sclerosis (3) Low body mass index (BMI) Current visit: Yes Status: Acute Category: Medical (4) UTI (urinary tract infection) Current visit: Yes Status: Acute Qualifiers: Urinary tract infection type: site unspecified Hematuria presence: without hematuria Qualified Code(s): N39.0 - Urinary tract infection, site not specified Category: Medical Code(s): N39.0 - Urinary tract infection, site not specified (5) Renal insufficiency Current visit: Yes Status: Acute Category: Medical Code(s): N28.9 - Disorder of kidney and ureter, unspecified (6) Hypocalcemia Current visit: Yes Status: Acute Category: Medical Code(s): E83.51 - Hypocalcemia (7) Leukocytosis Current visit: Yes Status: Acute Qualifiers: Leukocytosis type: leukemoid reaction Qualified Code(s): D72.823 - Leukemoid reaction Category: Medical Code(s): D72.829 - Elevated white blood cell count, unspecified (8) Self-catheterizes urinary bladder Current visit: Yes Status: Acute Category: Medical Code(s): Z78.9 - Other specified health status
[2018-08-28 09:16] LABS: Lymphocytes % 4 % (10-50); Monocytes % 2 % (2-9); Neutrophils % 93 % (42-76); RBC Morphology Normal; Total Cells Counted 100
--- NOTE | 2018-08-28 11:52 | Pharmacy Consult Notes ---
[facility] Pharmacy VTE Monitoring - Patient Demographics Admission date: 08/28/18 Report Date: 08/28/18 Time: 11:51 Allergies/Adverse Reactions: Patient Allergies Penicillins [PENICILLINS] Allergy (Unknown, Verified 05/11/18 13:47) tuberculin,PPD,multi-puncture [TUBERCULIN,PPD,MULTI-PUNCTURE] Allergy (Unknown, Verified 05/11/18 13:47) dalfampridine [From Ampyra] Allergy (Verified 08/28/18 00:21) Seizure Height: 1.75 m Weight: 49.47 kg Patient Problems: Current Active Problems Dehydration (Acute) Pneumonia (Acute) Multiple sclerosis (Chronic) - VTE Risk Labs: VTE Related Lab Results Hgb 10.6 g/dL (12.2-16.2) L D 08/28/18 08:00 Hct 34.0 % (37.0-47.0) L 08/28/18 08:00 Plt Count 155 K/mm3 (142-424) D 08/28/18 08:00 BUN 33 mg/dL (7-18) H 08/28/18 08:00 Creatinine 1.40 mg/dL (0.55-1.02) H 08/28/18 08:00 Estimated Creat Clear 30 mL/min (50-200) 08/28/18 08:00 Was VTE Risk Assessment Performed: Yes VTE Score: 6 VTE Risk Level: Moderate Risk - Prophylaxis Types of VTE Prophylaxis: TEDS Knee High (MARYURI HOSE ORDER PLACED)
--- NOTE | 2018-08-29 08:44 | Progress Note ---
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 - no fever and labs pending Exam Vital signs and Labs for Last 24 Hours: Temp Pulse Resp BP Pulse Ox 97.0 F L 117 H 22 152/95 H 90 L 08/29/18 08:00 08/29/18 08:00 08/29/18 08:00 08/29/18 08:00 08/29/18 08:00 Laboratory Results - last 24 hr 08/28/18 08:00: Total Counted 100, Neutrophils % (Manual) 93 H, Band Neutrophils % 1.0, Lymphocytes % (Manual) 4 L, Monocytes % (Manual) 2, Platelet Estimate Normal, RBC Morphology Normal 08/28/18 08:00: Sodium 141, Potassium 3.9, Chloride 108 H, Carbon Dioxide 23, Anion Gap 13.9, BUN 33 H, Creatinine 1.40 H, Estimated Creat Clear 30, Estimated GFR 37 L, Est GFR ( Amer) 45 L, Glucose 133 H, Calcium 7.1 L D I & O for Last 24 hours: Intake & Output 08/26/18 08/27/18 08/28/18 08/29/18 11:59 11:59 11:59 11:59 Intake Total 2831 / 2831 3785 / 3785 Output Total 350 / 350 Balance 2831 / 2831 3435 / 3435 Weight 109 lb 1 oz - Constitutional no acute distress, thin - *Routine HEENT Exam Head: Present: normocephalic Eye: Present: EOMI, PERRL ENT: Present: mucous membranes dry - *Routine Neck Exam Absent: JVD - *Routine Respiratory Exam Present: decreased breath sounds, rhonchi, distant breath sounds - *Routine Cardiovascular Exam Present: RRR, murmur. Absent: rubs - *Routine Abdominal Exam Present: soft - *Routine Extremities Exam Absent: calf tenderness - *Routine Skin Exam Present: intact - *Routine Neurological Exam Present: alert, CN II-XII intact - Routine Psychiatric Exam Present: normal affect Assessment and Plan (1) CAP (community acquired pneumonia) Current visit: Yes Status: Acute Qualifiers: Laterality: right Lung location: lower lobe of lung Qualified Code(s): J18.1 - Lobar pneumonia, unspecified organism Category: Medical Code(s): J18.9 - Pneumonia, unspecified organism (2) Multiple sclerosis Current visit: No Status: Chronic Category: Medical Code(s): G35 - Multiple sclerosis (3) Low body mass index (BMI) Current visit: Yes Status: Acute Category: Medical (4) UTI (urinary tract infection) Current visit: Yes Status: Acute Qualifiers: Urinary tract infection type: site unspecified Hematuria presence: without hematuria Qualified Code(s): N39.0 - Urinary tract infection, site not specified Category: Medical Code(s): N39.0 - Urinary tract infection, site not specified (5) Renal insufficiency Current visit: Yes Status: Acute Category: Medical Code(s): N28.9 - Disorder of kidney and ureter, unspecified (6) Hypocalcemia Current visit: Yes Status: Acute Category: Medical Code(s): E83.51 - Hypocalcemia (7) Leukocytosis Current visit: Yes Status: Acute Qualifiers: Leukocytosis type: leukemoid reaction Qualified Code(s): D72.823 - [place] kemoid reaction Category: Medical Code(s): D72.829 - Elevated white blood cell count, unspecified (8) Self-catheterizes urinary bladder Current visit: Yes Status: Acute Category: Medical Code(s): Z78.9 - Other specified health status
[2018-08-29 08:45] LABS: Basophils % 0.1 % (0.1-2.0); Eosinophils % 0.1 % (0.1-12.0); Hematocrit 33.9 % (37.0-47.0); Hemoglobin 10.9 g/dL (12.2-16.2); Lymphocytes # 0.9 K/mm3 (0.7-4.5); Lymphocytes % 5.1 % (10-50); Mean Corpuscular HGB Conc 32.1 g/dL (31.8-35.4); Mean Corpuscular Hemoglobin 29.2 pg (27.0-31.2); Mean Platelet Volume 8.9 fl (7.4-10.4); Monocytes # 0.7 K/mm3 (0.1-1.0); Monocytes % 4.4 % (1.7-9.3); Neutrophils # 15.3 K/mm3 (1.8-7.8); Neutrophils % 90.3 % (37.0-80.0); Platelet Count 214 K/mm3 (142-424); Red Blood Count 3.72 M/mm3 (4.20-5.40); Red Cell Distribution Width 12.9 % (11.5-17.5)
[2018-08-29 08:53] LABS: Anion Gap 15.2 mEq/L (5-15); Calcium 7.1 mg/dL (8.5-10.1); Potassium 4.2 mmoL/L (3.5-5.1)
[2018-08-29 08:58] LABS: Lymphocytes % 8 % (10-50); Monocytes % 3 % (2-9); Neutrophils % 89 % (42-76); RBC Morphology Normal; Total Cells Counted 100
[2018-08-30 08:14] LABS: Basophils % 0.1 % (0.1-2.0); Eosinophils % 0.3 % (0.1-12.0); Hematocrit 34.4 % (37.0-47.0); Hemoglobin 10.9 g/dL (12.2-16.2); Lymphocytes # 0.7 K/mm3 (0.7-4.5); Lymphocytes % 6.6 % (10-50); Mean Corpuscular HGB Conc 31.7 g/dL (31.8-35.4); Mean Corpuscular Hemoglobin 29.1 pg (27.0-31.2); Mean Corpuscular Volume 91.8 fl (81-99); Mean Platelet Volume 8.7 fl (7.4-10.4); Monocytes # 0.5 K/mm3 (0.1-1.0); Monocytes % 4.6 % (1.7-9.3); Neutrophils # 9.9 K/mm3 (1.8-7.8); Neutrophils % 88.4 % (37.0-80.0); Platelet Count 219 K/mm3 (142-424); Red Blood Count 3.75 M/mm3 (4.20-5.40); Red Cell Distribution Width 13.1 % (11.5-17.5); White Blood Count 11.1 K/mm3 (4.8-10.8)
[2018-08-30 08:16] LABS: Anion Gap 18.1 mEq/L (5-15); Potassium 4.1 mmoL/L (3.5-5.1)
[2018-08-30 08:20] LABS: Calcium 6.7 mg/dL (8.5-10.1)
--- NOTE | 2018-08-30 08:28 | Pharmacy Consult Notes ---
- Pharmacy Consult Date: 08/30/18 Time: 08:26 Referring provider: DR. ROE Reason for Consult:: VANCOMYCIN DOSING Allergies and ADEs:: Allergies Allergy/AdvReac Type Severity Reaction Status Date / Time Penicillins [PENICILLINS] Allergy Unknown Verified 05/11/18 13:47 tuberculin,PPD,multi-puncture Allergy Unknown Verified 05/11/18 13:47 [TUBERCULIN,PPD,MULTI-PUNCTURE] dalfampridine [From Ampyra] Allergy Seizure Verified 08/28/18 00:21 Home Medications:: Home Medications Medication Instructions Recorded Confirmed Type Baclofen [Lioresal 10mg tablet] 10 mg PO DAILY 09/06/17 08/27/18 History Height: 1.75 m Weight: 49.47 kg Laboratory Results:: Laboratory Results - last 24 hr 08/29/18 08:22: WBC 17.0 H, RBC 3.72 L, Hgb 10.9 L, Hct 33.9 L, MCV 91.0, MCH 29.2, MCHC 32.1, RDW 12.9, Plt Count 214 D, MPV 8.9, Neut % (Auto) 90.3 H, Lymph % (Auto) 5.1 L, [place] % (Auto) 4.4, Eos % (Auto) 0.1, Baso % (Auto) 0.1, Neut # (Auto) 15.3 H, Lymph # (Auto) 0.9, [place] # (Auto) 0.7, Eos # (Auto) 0.0, Baso # (Auto) 0.0, Total Counted 100, Neutrophils % (Manual) 89 H, Lymphocytes % (Manual) 8 L, Monocytes % (Manual) 3, Platelet Estimate Normal, RBC Morphology Normal 08/29/18 08:22: Sodium 141, Potassium 4.2, Chloride 110 H, Carbon Dioxide 20 L, Anion Gap 15.2 H, BUN 22 H D, Creatinine 1.11 H D, Estimated Creat Clear 37, Estimated GFR 49 L, Est GFR ( Amer) 59 D, Glucose 122 H, Calcium 7.1 L 08/30/18 07:40: WBC 11.1 H D, RBC 3.75 L, Hgb 10.9 L, Hct 34.4 L, MCV 91.8, MCH 29.1, MCHC 31.7 L, RDW 13.1, Plt Count 219, MPV 8.7, Neut % (Auto) 88.4 H, Lymph % (Auto) 6.6 L, [place] % (Auto) 4.6, Eos % (Auto) 0.3, Baso % (Auto) 0.1, Neut # (Auto) 9.9 H, Lymph # (Auto) 0.7, [place] # (Auto) 0.5, Eos # (Auto) 0.0, Baso # (Auto) 0.0 08/30/18 07:40: Sodium 142, Potassium 4.1, Chloride 110 H, Carbon Dioxide 18 L, Anion Gap 18.1 H, BUN 25 H, Creatinine 1.26 H, Estimated Creat Clear 33, Estimated GFR 42 L, Est GFR ( Amer) 51 L, Glucose 158 H D, Calcium 6.7 L Medical History: Reports:: Hyperlipidemia, Hypertension Denies:: Cancer, Diabetes Mellitus Type 1, Diabetes Mellitus Type 2, Internal Pacemaker, MRSA, Seizures Assessment and Plan (1) CAP (community acquired pneumonia) Current visit: Yes Status: Acute Qualifiers: Laterality: right Lung location: lower lobe of lung Qualified Code(s): J18.1 - Lobar pneumonia, unspecified organism Category: Medical Code(s): J18.9 - Pneumonia, unspecified organism (2) Multiple sclerosis Current visit: No Status: Chronic Category: Medical Code(s): G35 - Multiple sclerosis (3) Low body mass index (BMI) Current visit: Yes Status: Acute Category: Medical (4) UTI (urinary tract infection) Current visit: Yes Status: Acute Qualifiers: Urinary tract infection type: site unspecified Hematuria presence: without hematuria Qualified Code(s): N39.0 - Urinary tract infection, site not specified Category: Medical Code(s): N39.0 - Urinary tract infection, site not specified (5) Renal insufficiency Current visit: Yes Status: Acute Category: Medical Code(s): N28.9 - D isorder of kidney and ureter, unspecified (6) Hypocalcemia Current visit: Yes Status: Acute Category: Medical Code(s): E83.51 - Hypocalcemia (7) Leukocytosis Current visit: Yes Status: Acute Qualifiers: Leukocytosis type: leukemoid reaction Qualified Code(s): D72.823 - Leukemoid reaction Category: Medical Code(s): D72.829 - Elevated white blood cell count, unspecified (8) Self-catheterizes urinary bladder Current visit: Yes Status: Acute Category: Medical Code(s): Z78.9 - Other specified health status - Assessment and plan all Dx Assessment and Plan for all problems:: BASED ON PATIENT'S FACTORS, STARTED VANCOMYCIN 1000 MG Q24H STARTING LAST NIGHT. RECOMMEND CHANGING DOSE TO 750 MG Q24H TO START TONIGHT AT 1700. PHARMACY WILL FOLLOW DAILY AND ADJUST APPROPRIATE. RACHID IBARRA, PHARMD
[2018-08-30 11:32] LABS: Lymphocytes % 5 % (10-50); Monocytes % 5 % (2-9); Neutrophils % 90 % (42-76); Total Cells Counted 100
[2018-08-30 11:33] LABS: Hypochromasia 1+
--- NOTE | 2018-08-30 16:58 | Progress Note ---
Internal Medicine - PN: Subj *Date: 08/30/18 *Time: 08:00 Interval history: doing better on the vasotherm and sitting up -no sputum - blood cult and urine cult neg Exam Vital signs and Labs for Last 24 Hours: Temp Pulse Resp BP Pulse Ox 97.6 F 87 19 137/95 H 95 08/30/18 15:33 08/30/18 15:33 08/30/18 15:33 08/30/18 15:33 08/30/18 15:33 Laboratory Results - last 24 hr 08/30/18 07:40: WBC 11.1 H D, RBC 3.75 L, Hgb 10.9 L, Hct 34.4 L, MCV 91.8, MCH 29.1, MCHC 31.7 L, RDW 13.1, Plt Count 219, MPV 8.7, Neut % (Auto) 88.4 H, Lymph % (Auto) 6.6 L, [place] % (Auto) 4.6, Eos % (Auto) 0.3, Baso % (Auto) 0.1, Neut # (Auto) 9.9 H, Lymph # (Auto) 0.7, [place] # (Auto) 0.5, Eos # (Auto) 0.0, Baso # (Auto) 0.0, Total Counted 100, Neutrophils % (Manual) 90 H, Lymphocytes % (Manual) 5 L, Monocytes % (Manual) 5, Platelet Estimate Normal, Hypochromasia 1+ 08/30/18 07:40: Sodium 142, Potassium 4.1, Chloride 110 H, Carbon Dioxide 18 L, Anion Gap 18.1 H, BUN 25 H, Creatinine 1.26 H, Estimated Creat Clear 33, Estimated GFR 42 L, Est GFR ( Amer) 51 L, Glucose 158 H D, Calcium 6.7 L I & O for Last 24 hours: Intake & Output 08/28/18 08/29/18 08/30/18 08/31/18 11:59 11:59 11:59 11:59 Intake Total 2831 / 2831 3785 / 3785 4238 / 4238 240 / 240 Output Total 350 / 350 300 / 300 Balance 2831 / 2831 3435 / 3435 3938 / 3938 240 / 240 Weight 109 lb 1 oz 109 lb 1.003 oz Microbiology Reports for the Last 24 Hours: Microbiology 08/28/18 09:13 Urine,Catheterized Urine Culture - Final NO GROWTH AFTER 48 HOURS 08/27/18 15:43 Blood Blood Culture - Preliminary NO GROWTH AFTER 48 HOURS 08/27/18 15:43 Blood Blood Culture - Preliminary NO GROWTH AFTER 48 HOURS - Constitutional no acute distress, thin - *Routine HEENT Exam Head: Present: normocephalic Eye: Present: EOMI, PERRL ENT: Present: mucous membranes dry - *Routine Neck Exam Present: supple. Absent: JVD - *Routine Respiratory Exam Present: decreased breath sounds - *Routine Cardiovascular Exam Present: RRR, murmur - *Routine Abdominal Exam Present: soft - *Routine Extremities Exam Absent: calf tenderness - Routine Back/Spine/Pelvis Exam Back/Spine: Absent: CVA tenderness - *Routine Skin Exam Present: intact - *Routine Neurological Exam Present: alert - Routine Psychiatric Exam Present: normal affect Assessment and Plan (1) CAP (community acquired pneumonia) Current visit: Yes Status: Acute Qualifiers: Laterality: right Lung location: lower lobe of lung Qualified Code(s): J18.1 - Lobar pneumonia, unspecified organism Category: Medical Code(s): J18.9 - Pneumonia, unspecified organism (2) Multiple sclerosis Current visit: No Status: Chronic Category: Medical Code(s): G35 - Multiple sclerosis (3) Low body mass index (BMI) Current visit: Yes Status: Acute Category: Medical (4) UTI (urinary tract infection) Current visit: Yes Status: Acute Qualifiers: Urinary tract infection type: site unspecified Hematuria presence: without hematuria Qualified Code(s): N39.0 - Urinary tract infection, site not specified Category: Medical Code(s): N39.0 - Urinary tract infection, site not specified (5) Renal insufficiency Current visit: Yes Status: Acute Category: Medical Code(s): N28.9 - Disorder of kidney and ureter, unspecified (6) Hypocalcemia Current visit: Yes Status: Acute Category: Medical Code(s): E83.51 - Hypocalcemia (7) Leukocytosis Current visit: Yes Status: Acute Qualifiers: Leukocytosis type: leukemoid reaction Qualified Code(s): D72.823 - Leukemoid reaction Category: Medical Code(s): D72.829 - Elevated white blood cell count, unspecified (8) Self-catheterizes urinary bladder Current visit: Yes Status: Acute Category: Medical Code(s): Z78.9 - Other specified health status (9) Anemia Current visit: Yes Status: Acute Qualifiers: Anemia type: unspecified type Qualified Code(s): D64.9 - Anemia, unspecified Category: Medical Code(s): D64.9 - Anemia, unspecified The patient's infection will respond to the chosen ABx?: Yes Is the patient receiving the right drug, dose, and route?: Yes Could a more targeted ABx be ordered?: No 7
[2018-08-31 07:26] LABS: Basophils % 0.2 % (0.1-2.0); Eosinophils % 0.1 % (0.1-12.0); Hematocrit 36.2 % (37.0-47.0); Hemoglobin 11.2 g/dL (12.2-16.2); Lymphocytes # 1.2 K/mm3 (0.7-4.5); Lymphocytes % 7.3 % (10-50); Mean Corpuscular HGB Conc 30.8 g/dL (31.8-35.4); Mean Corpuscular Hemoglobin 28.5 pg (27.0-31.2); Mean Corpuscular Volume 92.7 fl (81-99); Mean Platelet Volume 8.8 fl (7.4-10.4); Monocytes # 0.8 K/mm3 (0.1-1.0); Monocytes % 4.7 % (1.7-9.3); Neutrophils # 14.8 K/mm3 (1.8-7.8); Neutrophils % 87.8 % (37.0-80.0); Platelet Count 272 K/mm3 (142-424); Red Blood Count 3.91 M/mm3 (4.20-5.40); Red Cell Distribution Width 13.3 % (11.5-17.5); White Blood Count 16.8 K/mm3 (4.8-10.8)
[2018-08-31 07:48] LABS: Anion Gap 23.8 mEq/L (5-15); Potassium 4.8 mmoL/L (3.5-5.1)
[2018-08-31 07:56] LABS: Calcium 6.8 mg/dL (8.5-10.1)
[2018-08-31 09:58] LABS: ABG HCO3 13.5 mmhg (22.0-26.0); ABG Oxygen Saturation 85 % (90-100); ABG PCO2 28.6 mmhg (35.0-45.0); ABG PH 7.29 mmol/L (7.35-7.45); ABG PO2 53.6 mmhg (80-100); ABG TCO2 14.4 mmhg (23-27)
[2018-08-31 09:59] LABS: Allen's Test Acceptable; Oxygen 50% %
[2018-08-31 10:29] LABS: Lymphocytes % 4 % (10-50); Monocytes % 4 % (2-9); Neutrophils % 92 % (42-76); Total Cells Counted 100
[2018-08-31 10:35] LABS: Hypochromasia 1+
--- NOTE | 2018-08-31 11:01 | Discharge Summary ---
General - General Admission date:: 08/27/18 Discharge date: 08/31/18 HPI HPI: this wf with hx of multiple sclerosis who had vomiting and dec po intake over the last few days and was seen in pcp and sent to ed - pt was found to have cap and elevated wbc and admitted for ivf and abx Hospital Course Hospital Course: chest x ray 08/27 IMPRESSION: Right lower lobe pneumonia Suggest follow-up until clear as a pulmonary mass could be obscured from the pneumonia 08/29 chest x ray:FINDINGS: There now is more diffuse pneumonic involvement of the right lower lobe. An there probably is some minimal infiltrate in the anterior segment right upper lobe. There is ill-defined pneumonic infiltrate in the left perihilar region and left lower lobe which was not seen on the previous study. There is a small amount of fluid in the left costo phrenic angle which was not seen previously and probably is a small reactive pleural effusion at the right costo phrenic angles well. Heart size is borderline however is no pulmonary congestion. There is diffuse dextroscoliotic curvature of the lower thoracic spine. IMPRESSION: Interval radiograph progression of the right lower lobe pneumonia now diffusely involving the entire right lower lobe and now probably involving anterior segment right upper lobe along with transbronchial spread to the left lower lobe chest x ray 08/31/18 FINDINGS: Underlying emphysematous changes are noted which were described on the previous chest film. However there are prominent diffuse bilateral ill-defined pneumonic infiltrates primarily involving the lower lobes. There are small reactive pleural effusion bilaterally. Is minimal pneumonic infiltrate extending into the upper lobes bilaterally as well. There is borderline cardio megaly. The vascularity is difficult to evaluate due to the diffuse pneumonic infiltrates but I doubt any significant pulmonary congestion. There is mild diffuse dextroscoliotic curvature of the thoracic spine. IMPRESSION: Prominent diffuse bilateral pneumonic infiltrates with only relative sparing the lung apices bilaterally. Suggest clinical correlation and close follow-up will transfer to Dr Jackson has accepted admit. Objective Vital signs: Temp Pulse Resp BP Pulse Ox 97.4 F L 84 30 H 140/86 98 08/31/18 07:37 08/31/18 07:37 08/31/18 07:37 08/31/18 07:37 08/31/18 07:37 mild distress, chronically ill appearing - *Routine HEENT Exam Head: Present: normocephalic Eye: Present: PERRL ENT: Present: mucous membranes moist - *Routine Respiratory Exam Present: rhonchi, diminished air movement - *Routine Cardiovascular Exam Present: RRR - *Routine Abdominal Exam Present: soft, normoactive bowel sounds - *Routine Extremities Exam Present: full ROM - *Routine Skin Exam Present: intact - *Routine Neurological Exam Present: alert, oriented X3 - Routine Psychiatric Exam Present: normal affect Results Labs on day of discharge: Labs from last 24 hours 08/31/18 08/31/18 08/31/18 09:50 07:15 07:15 WBC 16.8 H D RBC 3.91 L Hgb 11.2 L Hct 36.2 L MCV 92.7 MCH 28.5 MCHC 30.8 L RDW 13.3 Plt Count 272 MPV 8.8 Neut % (Auto) 87.8 H Lymph % (Auto) 7.3 L [place] % (Auto) 4.7 Eos % (Auto) 0.1 Baso % (Auto) 0.2 Neut # (Auto) 14.8 H Lymph # (Auto) 1.2 [place] # (Auto) 0.8 Eos # (Auto) 0.0 Baso # (Auto) 0.0 Total Counted 100 Neutrophils % (Manual) 92 H Lymphocytes % (Manual) 4 L Monocytes % (Manual) 4 Platelet Estimate Normal Hypochromasia 1+ Specimen Source Right brachial O2 % 50% ABG pH 7.29 L ABG pCO2 28.6 L ABG pO2 53.6 L ABG HCO3 13.5 L ABG Total CO2 14.4 L ABG O2 Saturation 85 L* ABG Base Excess -13.0 L Dash Test Acceptable Sodium 143 Potassium 4.8 Chloride 111 H Carbon Dioxide 13 L D Anion Gap 23.8 H BUN 31 H Creatinine 1.24 H Estimated Creat Clear 33 Estimated GFR 43 L Est GFR ( Amer) 52 L Glucose 214 H D Calcium 6.8 L 08/30/18 07:40 WBC RBC Hgb Hct MCV MCH MCHC RDW Plt Count MPV Neut % (Auto) Lymph % (Auto) [place] % (Auto) Eos % (Auto) Baso % (Auto) Neut # (Auto) Lymph # (Auto) [place] # (Auto) Eos # (Auto) Baso # (Auto) Total Counted 100 Neutrophils % (Manual) 90 H Lymphocytes % (Manual) 5 L Monocytes % (Manual) 5 Platelet Estimate Normal Hypochromasia 1+ Specimen Source O2 % ABG pH ABG pCO2 ABG pO2 ABG HCO3 ABG Total CO2 ABG O2 Saturation ABG Base Excess Dash Test Sodium Potassium Chloride Carbon Dioxide Anion Gap BUN Creatinine Estimated Creat Clear Estimated GFR Est GFR ( Amer) Glucose Calcium Preliminary micro results at discharge 08/27/18 15:43 Blood Culture - Preliminary Blood NO GROWTH AFTER 48 HOURS 08/27/18 15:43 Blood Culture - Preliminary Blood NO GROWTH AFTER 48 HOURS - Additional Comments Rounded with elizabeth all orders per elizabeth DS: Diagnosis - Discharge Diagnosis (1) CAP (community acquired pneumonia) Status: Acute (2) Multiple sclerosis Status: Chronic (3) Low body mass index (BMI) Status: Acute (4) UTI (urinary tract infection) Status: Acute (5) Renal insufficiency Status: Acute (6) Hypocalcemia Status: Acute (7) Leukocytosis Status: Acute (8) Self-catheterizes urinary bladder Status: Acute (9) Anemia Status: Acute Discharge Plan - Patient Discharge Instructions ACTIVITY: Continue current activity DIET: continue same diet Patient Instructions: DI for Dehydration -- Adult, DI for Pneumonia -- Adult, DI for Urinary Tract Infection (UTI) - Follow up Plan Follow up with: Mychal Rondon MD [Primary Care Provider] - Disposition: Xfer Short-Term Hosp Home Medications: Home Medications Medication Instructions Recorded Confirmed Type Baclofen [Lioresal 10mg tablet] 10 mg PO DAILY 09/06/17 08/27/18 History Prescriptions/Medication Reconciliation: Continue Baclofen [Lioresal 10mg tablet] 10 mg PO DAILY
[2018-09-01 07:16] LABS: Basophils % 0.1 % (0.1-2.0); Eosinophils % 0.2 % (0.1-12.0); Hematocrit 33.9 % (37.0-47.0); Hemoglobin 10.8 g/dL (12.2-16.2); Lymphocytes # 0.6 K/mm3 (0.7-4.5); Lymphocytes % 3.4 % (10-50); Mean Corpuscular HGB Conc 31.7 g/dL (31.8-35.4); Mean Corpuscular Hemoglobin 28.4 pg (27.0-31.2); Mean Corpuscular Volume 89.6 fl (81-99); Mean Platelet Volume 8.8 fl (7.4-10.4); Monocytes % 5.8 % (1.7-9.3); Neutrophils # 14.9 K/mm3 (1.8-7.8); Neutrophils % 90.5 % (37.0-80.0); Platelet Count 231 K/mm3 (142-424); Red Blood Count 3.78 M/mm3 (4.20-5.40); Red Cell Distribution Width 13.6 % (11.5-17.5); White Blood Count 16.5 K/mm3 (4.8-10.8)
[2018-09-01 07:17] LABS: Anion Gap 20.4 mEq/L (5-15); Potassium 4.4 mmoL/L (3.5-5.1)
--- NOTE | 2018-09-01 07:27 | Progress Note ---
Internal Medicine - PN: Subj *Date: 09/01/18 *Time: 07:26 Exam Vital signs and Labs for Last 24 Hours: Temp Pulse Resp BP Pulse Ox 97.1 F L 109 H 30 H 138/90 96 09/01/18 04:00 09/01/18 06:00 09/01/18 06:00 09/01/18 06:00 09/01/18 06:00 Laboratory Results - last 24 hr 08/31/18 07:15: WBC 16.8 H D, RBC 3.91 L, Hgb 11.2 L, Hct 36.2 L, MCV 92.7, MCH 28.5, MCHC 30.8 L, RDW 13.3, Plt Count 272, MPV 8.8, Neut % (Auto) 87.8 H, Lymph % (Auto) 7.3 L, [place] % (Auto) 4.7, Eos % (Auto) 0.1, Baso % (Auto) 0.2, Neut # (Auto) 14.8 H, Lymph # (Auto) 1.2, [place] # (Auto) 0.8, Eos # (Auto) 0.0, Baso # (Auto) 0.0, Total Counted 100, Neutrophils % (Manual) 92 H, Lymphocytes % (Manual) 4 L, Monocytes % (Manual) 4, Platelet Estimate Normal, Hypochromasia 1+ 08/31/18 07:15: Sodium 143, Potassium 4.8, Chloride 111 H, Carbon Dioxide 13 L D , Anion Gap 23.8 H, BUN 31 H, Creatinine 1.24 H, Estimated Creat Clear 33, Estimated GFR 43 L, Est GFR ( Amer) 52 L, Glucose 214 H D, Calcium 6.8 L 08/31/18 09:50: Specimen Source Right brachial, O2 % 50%, ABG pH 7.29 L, ABG pCO2 28.6 L, ABG pO2 53.6 L, ABG HCO3 13.5 L, ABG Total CO2 14.4 L, ABG O2 Saturation 85 L*, ABG Base Excess -13.0 L, Dash Test Acceptable 09/01/18 06:58: WBC 16.5 H, RBC 3.78 L, Hgb 10.8 L, Hct 33.9 L, MCV 89.6, MCH 28.4, MCHC 31.7 L, RDW 13.6, Plt Count 231, MPV 8.8, Neut % (Auto) 90.5 H, Lymph % (Auto) 3.4 L, [place] % (Auto) 5.8, Eos % (Auto) 0.2, Baso % (Auto) 0.1, Neut # (Auto) 14.9 H, Lymph # (Auto) 0.6 L, [place] # (Auto) 1.0, Eos # (Auto) 0.0, Baso # (Auto) 0.0 I & O for Last 24 hours: Intake & Output 08/29/18 08/30/18 08/31/18 09/01/18 23:59 23:59 23:59 23:59 Intake Total 1761 / 1761 5534 / 5534 3457 / 3457 568 / 568 Output Total 500 / 500 625 / 625 2200 / 2200 1000 / 1000 Balance 1261 / 1261 4909 / 4909 1257 / 1257 -432 / -432 Weight 49.47 kg 49.47 kg Assessment and Plan (1) CAP (community acquired pneumonia) Current visit: Yes Status: Acute Qualifiers: Laterality: right Lung location: lower lobe of lung Qualified Code(s): J18.1 - Lobar pneumonia, unspecified organism Category: Medical Code(s): J18.9 - Pneumonia, unspecified organism (2) Multiple sclerosis Current visit: No Status: Chronic Category: Medical Code(s): G35 - Multiple sclerosis (3) Low body mass index (BMI) Current visit: Yes Status: Acute Category: Medical (4) UTI (urinary tract infection) Current visit: Yes Status: Acute Qualifiers: Urinary tract infection type: site unspecified Hematuria presence: without hematuria Qualified Code(s): N39.0 - Urinary tract infection, site not specified Category: Medical Code(s): N39.0 - Urinary tract infection, site not specified (5) Renal insufficiency Current visit: Yes Status: Acute Category: Medical Code(s): N28.9 - Di sorder of kidney and ureter, unspecified (6) Hypocalcemia Current visit: Yes Status: Acute Category: Medical Code(s): E83.51 - Hypocalcemia (7) Leukocytosis Current visit: Yes Status: Acute Qualifiers: Leukocytosis type: leukemoid reaction Qualified Code(s): D72.823 - Leukemoid reaction Category: Medical Code(s): D72.829 - Elevated white blood cell count, unspecified (8) Self-catheterizes urinary bladder Current visit: Yes Status: Acute Category: Medical Code(s): Z78.9 - Other specified health status (9) Anemia Current visit: Yes Status: Acute Qualifiers: Anemia type: unspecified type Qualified Code(s): D64.9 - Anemia, unspecified Category: Medical Code(s): D64.9 - Anemia, unspecified The patient's infection will respond to the chosen ABx?: Yes Is the patient receiving the right drug, dose, and route?: Yes Could a more targeted ABx be ordered?: No 7
[2018-09-01 07:39] LABS: Calcium 6.7 mg/dL (8.5-10.1)
[2018-09-01 08:56] LABS: ABG HCO3 15.1 mmhg (22.0-26.0); ABG Oxygen Saturation 71 % (90-100); ABG PCO2 26.3 mmhg (35.0-45.0); ABG PH 7.38 mmol/L (7.35-7.45); ABG TCO2 15.9 mmhg (23-27)
[2018-09-01 08:58] LABS: Allen's Test Acceptable; Oxygen 3L %
[2018-09-01 09:01] LABS: ABG PO2 36.8 mmhg (80-100)
--- NOTE | 2018-09-01 09:52 | Progress Note ---
Internal Medicine - PN: Subj *Date: 09/01/18 *Time: 09:50 Exam Vital signs and Labs for Last 24 Hours: Temp Pulse Resp BP Pulse Ox 97.4 F L 112 H 34 H 146/86 H 94 L 09/01/18 08:00 09/01/18 09:20 09/01/18 09:20 09/01/18 08:00 09/01/18 09:20 Laboratory Results - last 24 hr 08/31/18 07:15: Total Counted 100, Neutrophils % (Manual) 92 H, Lymphocytes % (Manual) 4 L, Monocytes % (Manual) 4, Platelet Estimate Normal, Hypochromasia 1+ 08/31/18 09:50: Specimen Source Right brachial, O2 % 50%, ABG pH 7.29 L, ABG pCO2 28.6 L, ABG pO2 53.6 L, ABG HCO3 13.5 L, ABG Total CO2 14.4 L, ABG O2 Saturation 85 L*, ABG Base Excess -13.0 L, Dash Test Acceptable 09/01/18 06:58: WBC 16.5 H, RBC 3.78 L, Hgb 10.8 L, Hct 33.9 L, MCV 89.6, MCH 28.4, MCHC 31.7 L, RDW 13.6, Plt Count 231, MPV 8.8, Neut % (Auto) 90.5 H, Lymph % (Auto) 3.4 L, [place] % (Auto) 5.8, Eos % (Auto) 0.2, Baso % (Auto) 0.1, Neut # (Auto) 14.9 H, Lymph # (Auto) 0.6 L, [place] # (Auto) 1.0, Eos # (Auto) 0.0, Baso # (Auto) 0.0 09/01/18 06:58: Sodium 146 H, Potassium 4.4, Chloride 111 H, Carbon Dioxide 19 L D, Anion Gap 20.4 H, BUN 33 H, Creatinine 1.36 H, Estimated Creat Clear 30, Estimated GFR 39 L, Est GFR ( Amer) 47 L, Glucose 136 H D, Calcium 6.7 L 09/01/18 08:30: Specimen Source Left brachial, O2 % 3l, ABG pH 7.38, ABG pCO2 2 6.3 L, ABG pO2 36.8 L, ABG HCO3 15.1 L, ABG Total CO2 15.9 L, ABG O2 Saturation 71 L*, ABG Base Excess -10.0 L, Dash Test Acceptable I & O for Last 24 hours: Intake & Output 08/29/18 08/30/18 08/31/18 09/01/18 11:59 11:59 11:59 11:59 Intake Total 3785 / 3785 4238 / 4238 1818 / 1818 3863 / 3863 Output Total 350 / 350 300 / 300 625 / 625 3200 / 3200 Balance 3435 / 3435 3938 / 3938 1193 / 1193 663 / 663 Weight 109 lb 1.003 oz - Constitutional no acute distress - *Routine HEENT Exam Head: Present: normocephalic Eye: Present: EOMI, PERRL ENT: Present: mucous membranes moist - *Routine Neck Exam Present: supple. Absent: lymphadenopathy - *Routine Respiratory Exam Present: rhonchi, diminished air movement - *Routine Cardiovascular Exam Present: tachycardia - *Routine Abdominal Exam Present: soft, normoactive bowel sounds. Absent: tenderness - *Routine Extremities Exam Absent: cyanosis, clubbing, edema - *Routine Skin Exam Present: warm. Absent: rash - *Routine Neurological Exam Present: alert, oriented X3 - Routine Psychiatric Exam Present: normal affect Assessment and Plan (1) CAP (community acquired pneumonia) Current visit: Yes Status: Acute Qualifiers: Laterality: right Lung location: lower lobe of lung Qualified Code(s): J18.1 - Lobar pneumonia, unspecified organism Category: Medical Code(s): J18.9 - Pneumonia, unspecified organism (2) Multiple sclerosis Current visit: No Status: Chronic Category: Medical Code(s): G35 - Multiple sclerosis (3) Low body mass index (BMI) Current visit: Yes Status: Acute Category: Medical (4) UTI (urinary tract infection) Current visit: Yes Status: Acute Qualifiers: Urinary tract infection type: site unspecified Hematuria presence: without hematuria Qualified Code(s): N39.0 - Urinary tract infection, site not specified Category: Medical Code(s): N39.0 - Urinary tract infection, site not specified (5) Renal insufficiency Current visit: Yes Status: Acute Category: Medical Code(s): N28.9 - Disorder of kidney and ureter, unspecified (6) Hypocalcemia Current visit: Yes Status: Acute Category: Medical Code(s): E83.51 - Hypocalcemia (7) Leukocytosis Current visit: Yes Status: Acute Qualifiers: Leukocytosis type: leukemoid reaction Qualified Code(s): D72.823 - Leukemoid reaction Category: Medical Code(s): D72.829 - Elevated white blood cell count, unspecified (8) Self-catheterizes urinary bladder Current visit: Yes Status: Acute Category: Medical Code(s): Z78.9 - Other specified health status (9) Anemia Current visit: Yes Status: Acute Qualifiers: Anemia type: unspecified type Qualified Code(s): D64.9 - Anemia, unspecified Category: Medical Code(s): D64.9 - Anemia, unspecified - Assessment and plan all Dx Assessment and Plan for all problems:: Dr. Rondon rounded earlier today all orders per Dr. Rondon Talked with bed coordinator at they will have a bed later today if not they will call us back. If no bed available [facility] today we will look at other transfers facilities. We will discuss patient with Dr. Titus. 7
[2018-09-01 10:17] LABS: Coronavirus 229E Not Detected (NotDetected); Coronavirus NL63 Not Detected (NotDetected); Coronavirus OC43 Not Detected (NotDetected); Coronovirus HKU1,PCR Not Detected (NotDetected)
[2018-09-01 11:01] LABS: Hypochromasia 1+; Lymphocytes % 2 % (10-50); Monocytes % 5 % (2-9); Neutrophils % 87 % (42-76); Total Cells Counted 100
--- NOTE | 2018-09-01 11:57 | Consult Report ---
History of Present Illness Consult date: 09/01/18 Requesting physician: Mychal Rondon Consult reason: shortness of breath Chief complaint: Shortness of breath Additional Medical History:: 1. Dyspnea. A. [facility], 08/2017, normal coronaries and normal LVEF CARDIAC CATHETERIZATION DATE OF CATHETERIZATION:10/01/2017 9:20 AM PROCEDURES: 1. Right heart catheterization 2. Left heart catheterization 3. Left ventriculogram 4. Selective coronary angiogram INDICATION FOR TEST: 1. Abnormal EKG 2. Class IV congestive heart failure symptoms 3. Class IV angina pectoris 4. Severe COPD 5. Pulmonary hypertension Informed consent was obtained prior to the procedure. COMPLICATIONS: None ESTIMATED BLOOD LOSS: Less than 10 ml. TECHNIQUE: One percent lidocaine was used to anesthetize the right groin. The right femoral artery was accessed via the Seldinger technique. A 4-Syriac and 7 english sheath was placed in the right femoral artery and vein respectfully. A 7 Syriac sheath was introduced and a Sterling-Elda catheter was floated using hemodynamic waveforms in the pulmonary artery, right ventricle , and right atrium. Saturations were obtained in the pulmonary artery and the right atrium. The JR-4 and JL-4 catheter was also used to perform left heart catheterization, left ventriculography and selective coronary angiogram. At the end of the procedure the patient was transferred to the post-op holding area in stable condition for arterial sheath removal. ANGIOGRAPHIC RESULTS: 1. The left main artery normal 2. The left anterior descending artery has normal 3. The circumflex artery is non dominant and has normal 4. The right coronary artery normal 5. The MORALES ventriculogram reveals normal 65% The left ventricular end-diastolic pressure less than 10 mmHg HEMODYNAMICS: Right atrial pressure is 3 mm Hg. Pulmonary arterial pressure is 25/12 mm Hg. Pulmonary artery occlusion pressure is 8 mm Hg. SATURATIONS: RA is 67 %. PA is 63 %. IMPRESSION: 1. Normal coronary arteries 2. Normal ejection fraction 3. Normal intracardial pulmonary filling pressures PLAN: 1. Evaluation of noncardiac symptomatology 2. Treatment of severe underlying COPD Dictated By: Brandyn Mccoy MD 2. Multiple Sclerosis. 3. Urinary tract infection. 4. Essential hypertension A. Echo, 08/2017,Patient: Amirah Salas BMR#: [id number] : 1950 Acct:[id number] Age/Sex: 66 / F ADM Date: 09/13/17 Loc: 2ND 215-[address]: Mychal Rondon MD Ordering Physician: Brandyn Mccoy MD Date of Service: 09/14/17 Procedure(s): CA echo doppler complete Accession Number(s): [id number] cc: Mychal Rondon MD; Brandyn Mccoy MD; Girish Tinoco MD~ PROCEDURE: 2-D M-mode and color Doppler study INDICATIONS FOR THE TEST: Chest pain X COPD Heart Murmur Tobacco Smoking Palpitations Fatigue Syncope EdemaX HypertensionXDiabetes Mellitus Rheumatic Fever SOB YAN Obesity Hyperlipidemia Family History HD Additional History ABN EKG,ELEVATED TROPONINS PATIENT INFORMATION HEIGHT: 67 WEIGHT:106 GENDER: Female B/P:110/52 2-D/M-MODE INTERPRETATION: 2-D MEASUREMENTS OBSERVED VALUES IN CMS Right Ventricular Dimension (RVDd) 2.3 Interventricular Septum (Thickness)(IVsd) 1.1 Left Ventricular Internal Dimensions(LVIDd) 4.0 Left Ventricular Posterior Wall (Thickness)(LVPWd) 1.0 Aortic Root 3.4 Aortic Cusp Separation 1.9 Left Atrial Dimensions (LAD) 2.4 2D 1. Left atrium is normal size, left ventricle is normal size, left ventricle wall thickness is upper limit of the normal, visually estimated ejection fraction 55% with no obvious regional wall motion abnormality. Endocardial surfaces are poorly visualized. 2. The right atrium and right ventricle are mildly enlarged with normal contractility. 3. The aortic valve is minimally thickened and fibrosed. 4. The mitral and tricuspid valve are grossly normal. 5. The pulmonic valve is poorly visualized 6. No significant pericardial effusion noted. DOPPLER INTERROGATION: Doppler interrogation of the aortic, mitral and tricuspid valvular presence of mild mitral and tricuspid regurgitation, calculated right ventricular systolic pressure is 62 mmHg consistent with moderate pulmonary hypertension, grade 1 diastolic dysfunction seen without tissue Doppler evidence of raised left atrial pressure. CONCLUSION: 1. Normal left ventricular size, preserved left ventricular systolic function, visually estimated ejection fraction 55% with no obvious regional wall motion abnormality, grade 1 diastolic dysfunction seen without tissue Doppler evidence of raised left atrial pressure. 2. Mildly enlarged right atrium and right ventricle, contractility of the right ventricle is normal. 3. Mild mitral and tricuspid regurgitation, calculated right ventricular systolic pressure is 62 mmHg consistent with moderate pulmonary hypertension. 4. No significant pericardial effusion noted. Dictated By: Girish Tinoco MD History of present illness: 67-year-old white female admitted for pneumonia for antibiotic therapy with elevated white count and increasing shortness of breath. Patient with continued episodes of shortness of breath despite BiPAP therapy. Further evaluation shows worsening pneumonia, pleural effusions on echo with possible congestive heart failure underlying. Lab work is recently included troponins which are noted to be elevated with cardiology consultation for further evaluation. Patient with known normal coronary arteries by cardiac catheterization in September of last year with severe pulmonary hypertension. EKG shows sinus rhythm/sinus tachycardia with no acute ST segment changes. Preliminary echocardiogram today shows reduced ejection fraction of approximately 30% with wall motion abnormalities. [facility] History Medical History: Reports:: Hyperlipidemia, Hypertension Denies:: Cancer, Diabetes Mellitus Type 1, Diabetes Mellitus Type 2, Internal Pacemaker, MRSA, Seizures *Have you ever received a pneumonia vaccine?: Yes *Have you received a flu vaccine this season?: Yes Other Medical History: Reports: Arthritis, Cataracts, Other Laterality Cases: Right: Breast Biopsy Other Surgeries: Yes: Cardiac Catheterization, Cholecystectomy, Colonoscopy, Tubal Ligation, Other. No: Pacemaker Amputation: No Fractures: Yes ((R) fibula,) - *Social History Educational Level: Attended College Smoking Status: Never smoker Alcohol Intake: never Alcohol Intake Frequency:: other Substance Use Type: denies use *Occupational Status:: retired Housing: house Household Members: spouse, children *Travel in the last 8 weeks: None - Psychiatric History Expresses thoughts of harming self/others: None Suicide Plan Description: No Plan Family Hx:: Cancer, Coronary Artery Disease, Diabetes, Heart Attack, Stroke, Tuberculosis Meds Home Medications Medication Instructions Recorded Confirmed Type Baclofen [Lioresal 10mg tablet] 10 mg PO DAILY 09/06/17 08/27/18 History Allergies Allergy/AdvReac Type Severity Reaction Status Date / Time Penicillins [PENICILLINS] Allergy Unknown Verified 05/11/18 13:47 tuberculin,PPD,multi-puncture Allergy Unknown Verified 05/11/18 13:47 [TUBERCULIN,PPD,MULTI-PUNCTURE] dalfampridine [From Ampyra] Allergy Seizure Verified 08/28/18 00:21 Review of Systems - *Cardiovascular Reports shortness of breath, Reports shortness of breath with activity, Denies chest pain - *Respiratory Reports shortness of breath, Reports shortness of breath with activity - *Gastrointestinal Denies abdominal pain, Denies loose stools - *Genitourinary Denies blood in urine - *Musculoskeletal Denies joint pain, Denies back pain - *Neurologic Reports weakness, Denies localized weakness, Denies headache(s), Denies fainting Exam Vital signs and Labs for Last 24 Hours: Temp Pulse Resp BP Pulse Ox 97.4 F L 110 H 22 142/85 H 100 09/01/18 08:00 09/01/18 11:02 09/01/18 10:00 09/01/18 10:00 09/01/18 10:00 Laboratory Results - last 24 hr 09/01/18 06:58: WBC 16.5 H, RBC 3.78 L, Hgb 10.8 L, Hct 33.9 L, MCV 89.6, MCH 28.4, MCHC 31.7 L, RDW 13.6, Plt Count 231, MPV 8.8, Neut % (Auto) 90.5 H, Lymph % (Auto) 3.4 L, Swain % (Auto) 5.8, Eos % (Auto) 0.2, Baso % (Auto) 0.1, Neut # (Auto) 14.9 H, Lymph # (Auto) 0.6 L, Swain # (Auto) 1.0, Eos # (Auto) 0.0, Baso # (Auto) 0.0, Total Counted 100, Neutrophils % (Manual) 87 H, Band Neutrophils % 6.0, Lymphocytes % (Manual) 2 L, Monocytes % (Manual) 5, Platelet Estimate Nor mal, Hypochromasia 1+ 09/01/18 06:58: Sodium 146 H, Potassium 4.4, Chloride 111 H, Carbon Dioxide 19 L D, Anion Gap 20.4 H, BUN 33 H, Creatinine 1.36 H, Estimated Creat Clear 30, Estimated GFR 39 L, Est GFR ( Amer) 47 L, Glucose 136 H D, Calcium 6.7 L 09/01/18 08:30: Specimen Source Left brachial, O2 % 3l, ABG pH 7.38, ABG pCO2 26.3 L, ABG pO2 36.8 L, ABG HCO3 15.1 L, ABG Total CO2 15.9 L, ABG O2 Saturation 71 L*, ABG Base Excess -10.0 L, Dash Test Acceptable 09/01/18 10:10: Chlamy pneumoniae PCR Not detected, Adenovirus (PCR) Not detected, B. pertussis DNA (PCR) Not detected, Coronavirus OC43 (PCR) Not detected, Coronavirus HKU1 (PCR) Not detected, Coronavirus 229E (PCR) Not detected, Coronavirus NL63 (PCR) Not detected, Human Metapneumovir PCR Not detected, Influenza A (H1) PCR Not detected, Influ A (H1N1/09) PCR Not detected, Influenza A (H3) PCR Not detected, Influenza Type A (PCR) Not detected, Influenza Type B (PCR) Not detected, M. pneumoniae (PCR) Not detected, Parainfluenza 1 (PCR) Not detected, Parainfluenza 2 (PCR) Not detected, Parainfluenza 3 (PCR) Not detected, Parainfluenza 4 (PCR) Not detected, RSV (PCR) Not detected, Entero/Rhino (PCR) Not detected 09/01/18 10:10: Total Creatine Kinase 265 H, CK-MB (CK-2) 8.5 H*, CK-MB (CK-2) Rel Index 3.2, Troponin I 1.01 H I & O for Last 24 hours: Intake & Output 08/29/18 08/30/18 08/31/18 09/01/18 11:59 11:59 11:59 11:59 Intake Total 3785 / 3785 4238 / 4238 1818 / 1818 3863 / 3863 Output Total 350 / 350 300 / 300 625 / 625 3200 / 3200 Balance 3435 / 3435 3938 / 3938 1193 / 1193 663 / 663 Weight 109 lb 1.003 oz - Constitutional moderate distress, cachectic - *Routine HEENT Exam Head: Present: normocephalic Eye: Present: EOMI, PERRL ENT: Present: mucous membranes dry - *Routine Neck Exam Present: supple. Absent: JVD, carotid bruit - *Routine Respiratory Exam Present: decreased breath sounds, rales, rhonchi, diminished air movement. Absent: accessory muscle use, wheezes - *Routine Cardiovascular Exam Present: murmur, tachycardia. Absent: gallop, rubs - *Routine Extremities Exam Present: edema, pallor. Absent: calf tenderness - *Routine Neurological Exam Present: alert, moving all extremities Assessment and Plan (1) CAP (community acquired pneumonia) Current visit: Yes Status: Acute Qualifiers: Laterality: right Lung location: lower lobe of lung Qualified Code(s): J18.1 - Lobar pneumonia, unspecified organism Category: Medical Code(s): J18.9 - Pneumonia, unspecified organism (2) Multiple sclerosis Current visit: No Status: Chronic Category: Medical Code(s): G35 - Multiple sclerosis (3) Low body mass index (BMI) Current visit: Yes Status: Acute Category: Medical (4) UTI (urinary tract infection) Current visit: Yes Status: Acute Qualifiers: Urinary tract infection type: site unspecified Hematuria presence: without hematuria Qualified Code(s): N39.0 - Urinary tract infection, site not specified Category: Medical Code(s): N39.0 - Urinary tract infection, site not specified (5) Renal insufficiency Current visit: Yes Status: Acute Category: Medical Code(s): N28.9 - Disorder of kidney and ureter, unspecified (6) Hypocalcemia Current visit: Yes Status: Acute Category: Medical Code(s): E83.51 - Hypocalcemia (7) Leukocytosis Current visit: Yes Status: Acute Qualifiers: Leukocytosis type: leukemoid reaction Qualified Code(s): D72.823 - Leukemoid reaction Category: Medical Code(s): D72.829 - Elevated white blood cell count, unspecified (8) Self-catheterizes urinary bladder Current visit: Yes Status: Acute Category: Medical Code(s): Z78.9 - Other specified health status (9) Anemia Current visit: Yes Status: Acute Qualifiers: Anemia type: unspecified type Qualified Code(s): D64.9 - Anemia, unspecified Category: Medical Code(s): D64.9 - Anemia, unspecified - Assessment and plan all Dx Assessment and Plan for all problems:: 1. Respiratory distress with bilateral pneumonia and congestive heart failure with new cardiomyopathy. Patient has been given IV dose of Lasix, Lopressor and morphine. Patient will be intubated and transferred via helicopter to for further treatment.
[2018-09-01 12:25] LABS: ABG Base Excess -9.4 mmol/L (-2.4-2.3); ABG HCO3 17.3 mmhg (22.0-26.0); ABG Oxygen Saturation 98 % (90-100); ABG PCO2 37.9 mmhg (35.0-45.0); ABG PH 7.28 mmol/L (7.35-7.45); ABG PO2 132.7 mmhg (80-100); ABG TCO2 18.5 mmhg (23-27)
[2018-09-01 12:27] LABS: Oxygen 100 %
[2018-09-01 13:35] VITALS: BP 83/57
--- NOTE | 2018-09-02 15:42 | Cardiology Report ---
PROCEDURE: 2-D limited study to evaluate left ventricular systolic function INDICATIONS FOR THE TEST: Chest pain COPD Heart Murmur Tobacco Smoking Palpitations Fatigue Syncope Edema Hypertension Diabetes Mellitus Rheumatic Fever SOB+YAN Obesity Hyperlipidemia Family History HD Additional History MS, EF CHECK ONLY PATIENT INFORMATION HEIGHT: 68 WEIGHT:109 GENDER: Female B/P:122/83 2-D/M-MODE INTERPRETATION: 2-D MEASUREMENTS OBSERVED VALUES IN CMS Right Ventricular Dimension (RVDd) 2.6 Interventricular Septum (Thickness)(IVsd) 1.4 Left Ventricular Internal Dimensions(LVIDd) 4.0 Left Ventricular Posterior Wall (Thickness)(LVPWd) 0.7 Aortic Root Aortic Cusp Separation Left Atrial Dimensions (LAD) 2D 1. Left atrium is mildly enlarged, left ventricle is mildly dilated, mild concentric left ventricular hypertrophy, there is severely reduced left ventricular systolic function, visually estimated ejection fraction 20-25%, left ventricle is globally hypokinetic, there is abnormal septal motion. 2. The right atrium and right ventricle are mildly dilated with reduced contractility. 3. The aortic valve is thickened and calcified leaflet continue to display mobility 4. The mitral and tricuspid valvular grossly normal. 5. The pulmonic valve is poorly visualized. 6. No significant pericardial effusion noted. DOPPLER INTERROGATION: No Doppler performed CONCLUSION: 1. Mildly enlarged left atrium, mildly dilated left ventricle, mild concentric left ventricular hypertrophy, severely reduced left ventricular systolic function, visually estimated ejection fraction of 20-25%, left ventricle is globally hypokinetic. There is abnormal septal motion. 2. Dilated right ventricle with reduced contractility. 3. No significant pericardial effusion noted.
== END 2018-09-01 13:05 | disposition short-term general hospital (02) | DRG 193 ==
LOC: 2ND 14:46 → ER 14:46 → OBSVTOIN 18:57 → 2ND 18:58
PROVIDERS: ADMIT Emergency Medicine; ATTEND Emergency Medicine
CPT/HCPCS: 36415; 71010; 71020; 71045; 71046; 80048; 80053; 81001; 82550; 82553; 82803; 83605; 84484; 85007; 85025; 87040; 87086; 87088; 87186; 87486; 87581; 87633; 87798; 93005; 93308; 94640; 94660; 94760; 94761; 96365; 96367; 96375; 99284; J0456; J0692; J2405; J2704; J3370; S0077

== ENCOUNTER → 2018-08-27 16:57 | Outpatient (CLI) | payer MEDICARE, SELFPAY | PROVIDERS: Visit Provider Nurse Practitioner Family | DX: N39.0 Urinary tract infection, site not specified (principal) | CPT/HCPCS: 87086; 87088; 87186 ==